=== PATIENT | male | born 1945 | race Caucasian/White ===

== ENCOUNTER 2023-08-14 19:52 | Inpatient (IN) | payer MEDICARE, OTHER ==
[~2023-08-14] VITALS: Ht 182.9 cm; Wt 66.2 kg
[2023-08-14 20:23] LABS: BASOPHILS % (AUTO) 0.4 % (0.0-2.0); EOSINOPHILS # (AUTO) 0.1 K/uL (0.0-0.7); EOSINOPHILS % (AUTO) 0.9 % (0.0-6.0); HEMATOCRIT 28 % (39-51); HEMOGLOBIN 8.6 g/dL (13.5-17.5); LYMPHOCYTES # (AUTO) 2.1 K/uL (0.8-4.8); LYMPHOCYTES % (AUTO) 21.4 % (20.0-44.0); MEAN CORPUSCULAR HEMOGLOBIN 28 PG (26.0-33.0); MEAN CORPUSCULAR HGB CONC 31 g/dl (31.0-36.0); MEAN CORPUSCULAR VOLUME 90 fL (80-96); MONOCYTES # (AUTO) 0.5 K/uL (0.1-1.30); MONOCYTES % (AUTO) 5.3 % (2.0-12.0); NEUTROPHILS # (AUTO) 7.2 K/uL (1.8-8.9); PLATELET COUNT (AUTO) 389 K/uL (150-450); RED BLOOD CELL COUNT(AUTO) 3.05 MIL/uL (4.5-6.0); WHITE BLOOD COUNT (AUTO) 9.9 K/uL (4.3-11.0)
[2023-08-14 20:36] LABS: INR 1.12 (0.91-1.10); PARTIAL THROMBOPLASTIN TIME 35.7 SEC (24.3-34.3); PROTHROMBIN TIME 11.8 SECS (9.2-11.1)
[2023-08-14] MEDS ORDERED: IOHEXOL-350 100 ML VIAL IV ONE (20:40)
[2023-08-14] MEDS ORDERED: IV NS 0.9% 250 ML IV ONE (20:40)
[2023-08-14] MEDS ORDERED: CT SWABBABLE VALVE TRANS SET 1 EA INFUS.SET MC ONE (20:40)
[2023-08-14 20:42] LABS: CALCIUM, SERUM 8.9 mg/dL (8.5-10.1); CARBON DIOXIDE 27 mmol/L (21-32); CHLORIDE 109 mmol/L (98-107); CREATININE 1.1 mg/dL (0.6-1.3); GLUCOSE 161 mg/dL (74-106); POTASSIUM 5.4 mmol/L (3.5-5.1); SODIUM SERUM 140 mmol/L (136-145); UREA NITROGEN, BLOOD 27 mg/dL (7-18)
[2023-08-14 20:49] LABS: LACTIC ACID 0.5 mmol/L (0.4-2.0)
[2023-08-14 20:55] LABS: ALANINE AMINOTRANSFERASE 33 U/L (12-78); ALKALINE PHOSPHATASE 121 U/L (46-116); ASPARTATE AMINOTRANSFERASE 25 U/L (15-37); BILIRUBIN,DIRECT 0.1 mg/dL (0.0-0.2); BILIRUBIN,TOTAL 0.2 mg/dL (0.2-1.0); TOTAL PROTEIN, SERUM 6.6 g/dL (6.4-8.2)
[2023-08-14 20:57] LABS: ALBUMIN 1.4 g/dL (3.4-5.0)
[2023-08-14 21:11] LABS: APPEARANCE,URINE CLEAR (CLEAR); BILIRUBIN,URINE NEGATIVE (NEGATIVE); BLOOD, URINE NEGATIVE Ery/uL (NEGATIVE); COLOR,URINE YELLOW (YELLOW); KETONES,URINE NEGATIVE (NEGATIVE); LEUKOCYTE ESTERASE ,URINE 1+ (NEGATIVE); NITRITE, URINE NEGATIVE (NEGATIVE); PROTEIN,URINE 2+ mg/dl (NEGATIVE); UGLUCOSE NEGATIVE (NEGATIVE); UROBILINOGEN,URINE 0.2 EU/dL (0.2)
[2023-08-14 21:42] LABS: ADD URINE CULTURE YES; BACTERIA,URINE 1+ /HPF (None Seen); RBC,URINE 0-2 /HPF (0-2); WBC,URINE TOO NUMEROUS TO COUN /HPF (0-3)
[2023-08-14 21:43] LABS: CALCIUM OXALATE CRYSTALS,UR Few /HPF (None Seen); SQUAMOUS EPITHELIAL CELL,UR Few /HPF (None Seen); YEAST,URINE Few /HPF (None Seen)
[2023-08-14] MEDS ORDERED: VANCOMYCIN 1 GM in IV D5W 250 ML IV ONE (22:00)
[2023-08-14] MEDS ORDERED: CEFEPIME 1 GM in IV D5W 50 ML IV ONE (22:00)
[2023-08-14] MEDS ORDERED: CEFEPIME 1 GM VIAL ONE (22:01)
[2023-08-14] MEDS ORDERED: VANCOMYCIN 1 GM /D5W 250 ML PB IV ONE (22:01)
[2023-08-14] MEDS ORDERED: Z GUARD REMEDY 4 OZ OINT TP PRN (23:00)
[2023-08-14] MEDS ORDERED: ZOLPIDEM TARTRATE 5 MG TABLET PO PRN (23:00)
[2023-08-14] MEDS ORDERED: ALBUTEROL FS 2.5 MG/0.5 ML VIAL.NEB NEB PRN ×2 (23:00)
[2023-08-14] MEDS ORDERED: MAGNESIUM HYDROXIDE 30 ML UDC PO PRN (23:00)
[2023-08-14] MEDS ORDERED: ONDANSETRON HCL/PF 4 MG/2 ML VIAL IVP PRN (23:00)
[2023-08-14] MEDS ORDERED: MAG HYDROX/AL HYDROX/SIMETH 30 ML UDC PO PRN (23:00)
[2023-08-14] MEDS ORDERED: ACETAMINOPHEN 325 MG TABLET PO PRN (23:00)
[2023-08-15] VITALS (20 sets, daily range): BP systolic 82–148; BP diastolic 56–124; TEMP 98.1–98.7; O2SAT 96–100
[2023-08-15 05:23] LABS: BASOPHILS % (AUTO) 0.5 % (0.0-2.0); EOSINOPHILS % (AUTO) 0.5 % (0.0-6.0); HEMATOCRIT 25 % (39-51); HEMOGLOBIN 7.9 g/dL (13.5-17.5); LYMPHOCYTES % (AUTO) 19.5 % (20.0-44.0); MEAN CORPUSCULAR HEMOGLOBIN 28 PG (26.0-33.0); MEAN CORPUSCULAR HGB CONC 31 g/dl (31.0-36.0); MEAN CORPUSCULAR VOLUME 89 fL (80-96); MONOCYTES # (AUTO) 0.6 K/uL (0.1-1.30); MONOCYTES % (AUTO) 6.2 % (2.0-12.0); NEUTROPHILS # (AUTO) 7.6 K/uL (1.8-8.9); NEUTROPHILS % (AUTO) 73.3 % (43.0-81.0); PLATELET COUNT (AUTO) 354 K/uL (150-450); RED BLOOD CELL COUNT(AUTO) 2.83 MIL/uL (4.5-6.0); WHITE BLOOD COUNT (AUTO) 10.3 K/uL (4.3-11.0)
[2023-08-15 05:36] LABS: CALCIUM, SERUM 8.7 mg/dL (8.5-10.1); MAGNESIUM 2.3 mg/dL (1.8-2.4); PHOSPHORUS 4.3 mg/dL (2.5-4.9); POTASSIUM 5.2 mmol/L (3.5-5.1)
[2023-08-15 06:14] LABS: ABG BASE EXCESS -2.4 mmol/L; ABG OXYGEN SATURATION 98.1 % (92.0-98.5); ABG PCO2 31.6 mmHg (35.0-45.0); ABG PH 7.444 (7.350-7.450); ABG PO2 121.1 mmHg (75.0-100.0); ABG TOTAL HEMOGLOBIN 8.7 G/dL (13.5-18.0); COHb 0.3 % (0.5-1.5); MetHb 0.3 % (0.0-1.5); O2Hb 97.5 % (94.0-97.0); PEEP,BG 5 cm H2O; SITE, ABG Left Radial; VENT MODE, BG AC 18 500 70% +5; VT, ABG 500 mL
[2023-08-15] MEDS ORDERED: IPRA4AER IH ×2 (08:20)
[2023-08-15] MEDS ORDERED: MELA3TAB41 GT (08:20)
[2023-08-15] MEDS ORDERED: CLON0.5T4 GT (08:20)
[2023-08-15] MEDS ORDERED: SENN-261 GT (08:20)
[2023-08-15] MEDS ORDERED: ACET-868 GT (08:20)
[2023-08-15] MEDS ORDERED: INSU100V39 SQ (08:20)
[2023-08-15] MEDS ORDERED: MIDO10TA GT (08:20)
[2023-08-15] MEDS ORDERED: SIME80TA15 GT (08:20)
[2023-08-15] MEDS ORDERED: SUCR1TAB GT (08:20)
[2023-08-15] MEDS ORDERED: TAMS-12 GT (08:20)
[2023-08-15] MEDS ORDERED: MAGN400T8 GT (08:20)
[2023-08-15] MEDS ORDERED: AMIO200T5 GT (08:20)
[2023-08-15] MEDS ORDERED: CHLO473M5 MM (08:20)
[2023-08-15] MEDS ORDERED: OLAN5TAB3 GT (08:20)
[2023-08-15] MEDS ORDERED: ENOX40DI SQ (08:20)
[2023-08-15] MEDS ORDERED: SODI10PO GT (08:20)
[2023-08-15] MEDS ORDERED: METO25TA6 GT (08:20)
[2023-08-15] MEDS ORDERED: SERT25TA GT (08:20)
[2023-08-15] MEDS ORDERED: HYDR-4303 GT (08:20)
[2023-08-15] MEDS ORDERED: OSMOLITE 1.5 GT (08:20)
[2023-08-15] MEDS ORDERED: NYST15CR2 TP (08:20)
[2023-08-15] MEDS ORDERED: INSU100I30 SQ (08:20)
[2023-08-15] MEDS ORDERED: FAMO20TA80 GT (08:20)
[2023-08-15] MEDS ORDERED: ATOR10TA GT (08:20)
[2023-08-15] MEDS ORDERED: ENOXAPARIN SODIUM 40 MG/0.4 ML DISP.SYRIN SQ SCH (09:00)
[2023-08-15] MEDS: CEFEPIME 2 GM in IV D5W 100 ML IV SCH ×2 (10:55→21:14)
[2023-08-15] MEDS: PANTOPRAZOLE 40 MG VIAL IV SCH (10:55)
[2023-08-15] MEDS: VANCOMYCIN HCL 0.75 GM in IV D5W 250 ML IV SCH ×2 (12:00→23:21)
[2023-08-15] MEDS: OSMOLITE 1.2 CAL 1,000 ML LIQUID GT PRN (16:30)
[2023-08-15] MEDS: LORAZEPAM INJ 2 MG/ML VIAL IV PRN (18:20)
[2023-08-15 18:48] LABS: APPEARANCE,URINE SLIGHTLY CLOUDY (CLEAR); BILIRUBIN,URINE NEGATIVE (NEGATIVE); BLOOD, URINE NEGATIVE Ery/uL (NEGATIVE); COLOR,URINE YELLOW (YELLOW); KETONES,URINE NEGATIVE (NEGATIVE); LEUKOCYTE ESTERASE ,URINE NEGATIVE (NEGATIVE); NITRITE, URINE NEGATIVE (NEGATIVE); PH,URINE 7.5 (5.0-8.0); PROTEIN,URINE 1+ mg/dl (NEGATIVE); UGLUCOSE NEGATIVE (NEGATIVE); UROBILINOGEN,URINE 0.2 EU/dL (0.2)
[2023-08-15 18:59] LABS: CREATININE, URINE 31.6 MG/DL (30.0-125.0); URINE TOTAL PROTEIN 67.2 mg/dL (0-11.9)
[2023-08-15 19:15] LABS: ADD URINE CULTURE YES; BACTERIA,URINE 1+ /HPF (None Seen); RBC,URINE 0-2 /HPF (0-2); SQUAMOUS EPITHELIAL CELL,UR 0-2 /HPF (None Seen)
[2023-08-15 19:16] LABS: YEAST,URINE Few /HPF (None Seen)
[2023-08-15 19:17] LABS: CALCIUM OXALATE CRYSTALS,UR Few /HPF (None Seen)
[2023-08-15] MEDS: Z GUARD REMEDY 4 OZ OINT TP SCH (20:30)
[2023-08-15 20:47] LABS: EOSINOPHIL,URINE None Seen
[2023-08-16] VITALS (30 sets, daily range): BP systolic 98–135; BP diastolic 62–96; TEMP 98–98.4; O2SAT 94–100
[2023-08-16 05:34] LABS: BASOPHILS # (AUTO) 0.1 K/uL (0.0-0.2); EOSINOPHILS # (AUTO) 0.1 K/uL (0.0-0.7); EOSINOPHILS % (AUTO) 1.1 % (0.0-6.0); HEMATOCRIT 24 % (39-51); HEMOGLOBIN 7.5 g/dL (13.5-17.5); LYMPHOCYTES # (AUTO) 2.4 K/uL (0.8-4.8); LYMPHOCYTES % (AUTO) 27.2 % (20.0-44.0); MEAN CORPUSCULAR HEMOGLOBIN 28 PG (26.0-33.0); MEAN CORPUSCULAR HGB CONC 32 g/dl (31.0-36.0); MEAN CORPUSCULAR VOLUME 88 fL (80-96); MONOCYTES # (AUTO) 0.6 K/uL (0.1-1.30); MONOCYTES % (AUTO) 6.7 % (2.0-12.0); NEUTROPHILS # (AUTO) 5.6 K/uL (1.8-8.9); PLATELET COUNT (AUTO) 334 K/uL (150-450); RED BLOOD CELL COUNT(AUTO) 2.68 MIL/uL (4.5-6.0); RED CELL DISTRIBUTION WIDTH 17.9 % (11.5-15.0); WHITE BLOOD COUNT (AUTO) 8.8 K/uL (4.3-11.0)
[2023-08-16 05:50] LABS: BILIRUBIN,TOTAL 0.4 mg/dL (0.2-1.0); CALCIUM, SERUM 8.2 mg/dL (8.5-10.1); CREATININE 1.1 mg/dL (0.6-1.3); MAGNESIUM 2.3 mg/dL (1.8-2.4); PHOSPHORUS 3.7 mg/dL (2.5-4.9); POTASSIUM 4.5 mmol/L (3.5-5.1); TOTAL PROTEIN, SERUM 5.7 g/dL (6.4-8.2)
[2023-08-16 06:04] LABS: ALBUMIN 1.2 g/dL (3.4-5.0)
[2023-08-16] MEDS: PROSOURCE / PROSTAT (PYXIS) 30 ML UDC GT SCH (09:16)
[2023-08-16] MEDS: PANTOPRAZOLE 40 MG VIAL IV SCH (09:17)
[2023-08-16] MEDS: Z GUARD REMEDY 4 OZ OINT TP SCH ×2 (09:18→20:40)
[2023-08-16] MEDS: CEFEPIME 2 GM in IV D5W 100 ML IV SCH ×2 (09:19→21:09)
[2023-08-16] MEDS: LORAZEPAM INJ 2 MG/ML VIAL IV PRN ×2 (11:02→20:38)
[2023-08-16] MEDS: OSMOLITE 1.2 CAL 1,000 ML LIQUID GT PRN (17:59)
[2023-08-16] MEDS: VANCOMYCIN 500 MG in IV D5W 100ml IV SCH (23:24)
[2023-08-17] VITALS (25 sets, daily range): BP systolic 97–157; BP diastolic 63–146; TEMP 98–98.2; O2SAT 92–100
[2023-08-17 05:44] LABS: CALCIUM, SERUM 8.2 mg/dL (8.5-10.1); CARBON DIOXIDE 23 mmol/L (21-32); CHLORIDE 108 mmol/L (98-107); GLUCOSE 112 mg/dL (74-106); POTASSIUM 5.1 mmol/L (3.5-5.1); SODIUM SERUM 137 mmol/L (136-145); UREA NITROGEN, BLOOD 24 mg/dL (7-18)
[2023-08-17] MEDS: Z GUARD REMEDY 4 OZ OINT TP SCH ×2 (09:54→21:08)
[2023-08-17] MEDS: PROSOURCE / PROSTAT (PYXIS) 30 ML UDC GT SCH (10:04)
[2023-08-17] MEDS: CEFEPIME 2 GM in IV D5W 100 ML IV SCH ×2 (10:05→21:08)
[2023-08-17] MEDS: VANCOMYCIN 500 MG in IV D5W 100ml IV SCH (13:40)
[2023-08-17] MEDS: OSMOLITE 1.2 CAL 1,000 ML LIQUID GT PRN (18:05)
[2023-08-18] VITALS (17 sets, daily range): BP systolic 90–148; BP diastolic 66–101; TEMP 97.3–98.3; O2SAT 93–100
[2023-08-18] MEDS: VANCOMYCIN 500 MG in IV D5W 100ml IV SCH (00:13)
[2023-08-18 05:36] LABS: BASOPHILS # (AUTO) 0.1 K/uL (0.0-0.2); BASOPHILS % (AUTO) 0.5 % (0.0-2.0); EOSINOPHILS # (AUTO) 0.2 K/uL (0.0-0.7); EOSINOPHILS % (AUTO) 1.7 % (0.0-6.0); HEMATOCRIT 26 % (39-51); HEMOGLOBIN 8.4 g/dL (13.5-17.5); LYMPHOCYTES # (AUTO) 2.9 K/uL (0.8-4.8); LYMPHOCYTES % (AUTO) 26.5 % (20.0-44.0); MEAN CORPUSCULAR HEMOGLOBIN 28 PG (26.0-33.0); MEAN CORPUSCULAR HGB CONC 32 g/dl (31.0-36.0); MEAN CORPUSCULAR VOLUME 88 fL (80-96); MONOCYTES # (AUTO) 0.6 K/uL (0.1-1.30); MONOCYTES % (AUTO) 5.8 % (2.0-12.0); NEUTROPHILS # (AUTO) 7.2 K/uL (1.8-8.9); NEUTROPHILS % (AUTO) 65.5 % (43.0-81.0); PLATELET COUNT (AUTO) 338 K/uL (150-450); RED BLOOD CELL COUNT(AUTO) 2.99 MIL/uL (4.5-6.0); RED CELL DISTRIBUTION WIDTH 18.7 % (11.5-15.0)
[2023-08-18 06:00] LABS: CALCIUM, SERUM 8.3 mg/dL (8.5-10.1); CARBON DIOXIDE 26 mmol/L (21-32); CHLORIDE 106 mmol/L (98-107); GLUCOSE 98 mg/dL (74-106); MAGNESIUM 2.1 mg/dL (1.8-2.4); PHOSPHORUS 3.3 mg/dL (2.5-4.9); SODIUM SERUM 136 mmol/L (136-145); UREA NITROGEN, BLOOD 24 mg/dL (7-18)
[2023-08-18] MEDS: LORAZEPAM INJ 2 MG/ML VIAL IV PRN (08:36)
[2023-08-18] MEDS: Z GUARD REMEDY 4 OZ OINT TP SCH ×2 (08:43→20:53)
[2023-08-18] MEDS: PROSOURCE / PROSTAT (PYXIS) 30 ML UDC GT SCH (08:43)
[2023-08-18] MEDS: PANTOPRAZOLE 40 MG/PACK PACK GT SCH (08:43)
[2023-08-18] MEDS: FLUCONAZOLE IN NS 100 MG in PREMIX 1 EA IV SCH ×2 (09:22)
[2023-08-18] MEDS: CEFEPIME 2 GM in IV D5W 100 ML IV SCH ×2 (09:40→21:35)
[2023-08-18 11:08] LABS: *SPE A/G RATIO 0.5 (0.7-1.7); *SPE ALBUMIN 1.7 g/dL (2.9-4.4); *SPE ALPHA-1-GLOBULIN 0.4 g/dL (0.0-0.4); *SPE ALPHA-2-GLOBULIN 0.9 g/dL (0.4-1.0); *SPE BETA GLOBULIN 0.9 g/dL (0.7-1.3); *SPE GLOBULIN, TOTAL 3.5 g/dL (2.2-3.9); *SPE M-SPIKE 0.4 g/dL (Not Observed); *SPE PROTEIN TOTAL 5.2 g/dL (6.0-8.5); *SPEGAMMA GLOBULIN 1.4 g/dL (0.4-1.8)
[2023-08-18 16:10] LABS: PTH, INTACT 34 pg/mL (15-65)
[2023-08-19] MEDS ORDERED: VANCOMYCIN 1 GM in IV D5W 250ml IV SCH ×2
[2023-08-19] MEDS: VANCOMYCIN HCL 0.75 GM in IV D5W 250 ML IV SCH ×2
[2023-08-19 07:05] LABS: BASOPHILS # (AUTO) 0.1 K/uL (0.0-0.2); BASOPHILS % (AUTO) 0.7 % (0.0-2.0); EOSINOPHILS # (AUTO) 0.2 K/uL (0.0-0.7); EOSINOPHILS % (AUTO) 1.8 % (0.0-6.0); HEMATOCRIT 31 % (39-51); HEMOGLOBIN 9.5 g/dL (13.5-17.5); LYMPHOCYTES # (AUTO) 2.6 K/uL (0.8-4.8); LYMPHOCYTES % (AUTO) 21.4 % (20.0-44.0); MEAN CORPUSCULAR HEMOGLOBIN 27 PG (26.0-33.0); MEAN CORPUSCULAR HGB CONC 31 g/dl (31.0-36.0); MEAN CORPUSCULAR VOLUME 88 fL (80-96); MONOCYTES # (AUTO) 0.8 K/uL (0.1-1.30); MONOCYTES % (AUTO) 6.6 % (2.0-12.0); NEUTROPHILS # (AUTO) 8.5 K/uL (1.8-8.9); NEUTROPHILS % (AUTO) 69.5 % (43.0-81.0); PLATELET COUNT (AUTO) 341 K/uL (150-450); RED CELL DISTRIBUTION WIDTH 18.2 % (11.5-15.0); WHITE BLOOD COUNT (AUTO) 12.2 K/uL (4.3-11.0)
[2023-08-19 07:30] LABS: CALCIUM, SERUM 8.9 mg/dL (8.5-10.1); CREATININE 1.1 mg/dL (0.6-1.3); MAGNESIUM 2.1 mg/dL (1.8-2.4); PHOSPHORUS 5.8 mg/dL (2.5-4.9); POTASSIUM 5.4 mmol/L (3.5-5.1)
[2023-08-19 08:00] VITALS: BP 123/63; TEMP 98.6; O2SAT 100
[2023-08-19] MEDS: PANTOPRAZOLE 40 MG/PACK PACK GT SCH (08:37)
[2023-08-19] MEDS: Z GUARD REMEDY 4 OZ OINT TP SCH ×2 (08:37→21:36)
[2023-08-19] MEDS: PROSOURCE / PROSTAT (PYXIS) 30 ML UDC GT SCH (08:37)
[2023-08-19] MEDS: FLUCONAZOLE IN NS 100 MG in PREMIX 1 EA IV SCH ×2 (08:37)
[2023-08-19 08:38] LABS: ABG BASE EXCESS -1.3 mmol/L; ABG OXYGEN SATURATION 95.7 % (92.0-98.5); ABG PCO2 30.1 mmHg (35.0-45.0); ABG PH 7.475 (7.350-7.450); ABG PO2 79.9 mmHg (75.0-100.0); ABG TOTAL HEMOGLOBIN 9.5 G/dL (13.5-18.0); AaDO2 170.7 mmHg; COHb 0.6 % (0.5-1.5); MetHb 0.3 % (0.0-1.5); O2Hb 94.8 % (94.0-97.0); SITE, ABG Right Radial
[2023-08-19] MEDS: CEFEPIME 2 GM in IV D5W 100 ML IV SCH ×2 (10:07→21:34)
[2023-08-19] MEDS: LORAZEPAM INJ 2 MG/ML VIAL IV PRN (11:58)
[2023-08-19 12:00] VITALS: BP 135/95; TEMP 99.7; O2SAT 100
[2023-08-19] MEDS ORDERED: SODIUM POLYSTYRENE SULFONATE 15 G/60 ML BOTTLE PO ONE (14:30)
[2023-08-19] MEDS ORDERED: SENNOSIDES 8.6 MG TABLET GT PRN (14:30)
[2023-08-19] MEDS ORDERED: SIMETHICONE 80 MG TAB.CHEW GT PRN (14:30)
[2023-08-19] MEDS ORDERED: AMIODARONE HCL 200 MG TABLET GT SCH ×2 (14:30→14:50)
[2023-08-19 15:37] LABS: CALCIUM, SERUM 8.7 mg/dL (8.5-10.1); CARBON DIOXIDE 23 mmol/L (21-32); CHLORIDE 105 mmol/L (98-107); CREATININE 1.2 mg/dL (0.6-1.3); GLUCOSE 127 mg/dL (74-106); POTASSIUM 5.7 mmol/L (3.5-5.1); SODIUM SERUM 137 mmol/L (136-145); UREA NITROGEN, BLOOD 28 mg/dL (7-18)
[2023-08-19] MEDS: NYSTATIN/TRIAMCIN CREAM 15 GM TUBE TP SCH ×2 (15:52→21:36)
[2023-08-19 16:00] VITALS: BP 108/64; TEMP 100; O2SAT 98
[2023-08-19] MEDS: NEPRO 1,000 ML BOTTLE GT PRN (16:16)
[2023-08-19] MEDS: SUCRALFATE 1 G TABLET PO SCH ×2 (16:26→21:35)
[2023-08-19] MEDS: OLANZAPINE 5 MG TABLET GT SCH (16:26)
[2023-08-19] MEDS ORDERED: MAG HYDROX/AL HYDROX/SIMETH 30 ML UDC GT PRN (16:29)
[2023-08-19] MEDS ORDERED: MAGNESIUM HYDROXIDE 30 ML UDC GT PRN (16:29)
[2023-08-19] MEDS ORDERED: ACETAMINOPHEN 650 MG/20.3 ML UDC GT PRN (16:30)
[2023-08-19] MEDS: METOPROLOL TARTRATE 25 MG TABLET GT SCH (17:03)
[2023-08-19] MEDS ORDERED: METOPROLOL TARTRATE 25 MG TABLET GT SCH (18:00)
[2023-08-19 20:00] VITALS: BP 111/74; TEMP 98.2; O2SAT 100
[2023-08-19] MEDS: TAMSULOSIN 0.4 MG CAP.SR.24H GT SCH (21:35)
[2023-08-19] MEDS: SERTRALINE HCL 25 MG TABLET GT SCH (21:35)
[2023-08-19] MEDS: ATORVASTATIN 10 MG TABLET GT SCH (21:35)
[2023-08-19] MEDS: INSULIN GLARGINE, 100 UNIT/ML CARTRIDGE SQ SCH (21:37)
[2023-08-20] VITALS: BP 132/99; TEMP 97.9; O2SAT 99
[2023-08-20] MEDS: METOPROLOL TARTRATE 25 MG TABLET GT SCH ×4 (00:41→17:02)
[2023-08-20] MEDS: VANCOMYCIN HCL 0.75 GM in IV D5W 250 ML IV SCH (00:41)
[2023-08-20 04:00] VITALS: BP 138/78; TEMP 99; O2SAT 100
[2023-08-20] MEDS: LORAZEPAM INJ 2 MG/ML VIAL IV PRN (05:48)
[2023-08-20 05:51] LABS: BASOPHILS # (AUTO) 0.1 K/uL (0.0-0.2); BASOPHILS % (AUTO) 0.6 % (0.0-2.0); EOSINOPHILS # (AUTO) 0.2 K/uL (0.0-0.7); EOSINOPHILS % (AUTO) 1.3 % (0.0-6.0); HEMATOCRIT 29 % (39-51); HEMOGLOBIN 9.2 g/dL (13.5-17.5); LYMPHOCYTES # (AUTO) 1.9 K/uL (0.8-4.8); LYMPHOCYTES % (AUTO) 15.9 % (20.0-44.0); MEAN CORPUSCULAR HEMOGLOBIN 28 PG (26.0-33.0); MEAN CORPUSCULAR HGB CONC 31 g/dl (31.0-36.0); MEAN CORPUSCULAR VOLUME 88 fL (80-96); MONOCYTES # (AUTO) 0.9 K/uL (0.1-1.30); MONOCYTES % (AUTO) 7.7 % (2.0-12.0); NEUTROPHILS # (AUTO) 8.9 K/uL (1.8-8.9); NEUTROPHILS % (AUTO) 74.5 % (43.0-81.0); PLATELET COUNT (AUTO) 332 K/uL (150-450); RED BLOOD CELL COUNT(AUTO) 3.34 MIL/uL (4.5-6.0)
[2023-08-20 06:13] LABS: BILIRUBIN,TOTAL 0.3 mg/dL (0.2-1.0); CALCIUM, SERUM 8.5 mg/dL (8.5-10.1); MAGNESIUM 1.9 mg/dL (1.8-2.4); PHOSPHORUS 3.5 mg/dL (2.5-4.9); TOTAL PROTEIN, SERUM 6.6 g/dL (6.4-8.2)
[2023-08-20 06:33] LABS: ALBUMIN 1.5 g/dL (3.4-5.0)
[2023-08-20 07:30] VITALS: BP 108/80; TEMP 98.1; O2SAT 99
[2023-08-20] MEDS: SUCRALFATE 1 G TABLET PO SCH ×4 (08:52→20:10)
[2023-08-20] MEDS: OLANZAPINE 5 MG TABLET GT SCH ×2 (08:52→17:01)
[2023-08-20] MEDS: PANTOPRAZOLE 40 MG/PACK PACK GT SCH (08:52)
[2023-08-20] MEDS: PROSOURCE / PROSTAT (PYXIS) 30 ML UDC GT SCH (08:54)
[2023-08-20] MEDS: FLUCONAZOLE IN NS 100 MG in PREMIX 1 EA IV SCH ×2 (08:56)
[2023-08-20] MEDS ORDERED: ENOXAPARIN SODIUM 40 MG/0.4 ML DISP.SYRIN SQ SCH (09:00)
[2023-08-20] MEDS ORDERED: SUCRALFATE 1 G TABLET GT SCH (09:00)
[2023-08-20] MEDS: NYSTATIN/TRIAMCIN CREAM 15 GM TUBE TP SCH ×2 (09:13→20:11)
[2023-08-20] MEDS: Z GUARD REMEDY 4 OZ OINT TP SCH ×2 (09:13→20:11)
[2023-08-20] MEDS: CEFEPIME 2 GM in IV D5W 100 ML IV SCH ×2 (10:27→21:48)
[2023-08-20 12:00] VITALS: BP 129/90; TEMP 97.9; O2SAT 96
[2023-08-20 16:00] VITALS: BP 113/71; TEMP 97.9; O2SAT 97
[2023-08-20] MEDS: NEPRO 1,000 ML BOTTLE GT PRN (17:01)
[2023-08-20] MEDS: SERTRALINE HCL 25 MG TABLET GT SCH (21:47)
[2023-08-20] MEDS: TAMSULOSIN 0.4 MG CAP.SR.24H GT SCH (21:47)
[2023-08-20] MEDS: ATORVASTATIN 10 MG TABLET GT SCH (21:47)
[2023-08-20] MEDS: INSULIN GLARGINE, 100 UNIT/ML CARTRIDGE SQ SCH (22:29)
[2023-08-21] MEDS: VANCOMYCIN HCL 0.75 GM in IV D5W 250 ML IV SCH (00:12)
[2023-08-21] MEDS: METOPROLOL TARTRATE 25 MG TABLET GT SCH ×4 (00:13→18:00)
[2023-08-21 07:28] LABS: BASOPHILS # (AUTO) 0.1 K/uL (0.0-0.2); BASOPHILS % (AUTO) 0.5 % (0.0-2.0); EOSINOPHILS # (AUTO) 0.2 K/uL (0.0-0.7); EOSINOPHILS % (AUTO) 1.5 % (0.0-6.0); HEMATOCRIT 30 % (39-51); HEMOGLOBIN 9.3 g/dL (13.5-17.5); LYMPHOCYTES % (AUTO) 26.2 % (20.0-44.0); MEAN CORPUSCULAR HEMOGLOBIN 28 PG (26.0-33.0); MEAN CORPUSCULAR HGB CONC 31 g/dl (31.0-36.0); MEAN CORPUSCULAR VOLUME 88 fL (80-96); MONOCYTES # (AUTO) 1.2 K/uL (0.1-1.30); MONOCYTES % (AUTO) 8.1 % (2.0-12.0); NEUTROPHILS # (AUTO) 9.7 K/uL (1.8-8.9); NEUTROPHILS % (AUTO) 63.7 % (43.0-81.0); PLATELET COUNT (AUTO) 308 K/uL (150-450); RED BLOOD CELL COUNT(AUTO) 3.36 MIL/uL (4.5-6.0); RED CELL DISTRIBUTION WIDTH 18.8 % (11.5-15.0); WHITE BLOOD COUNT (AUTO) 15.2 K/uL (4.3-11.0)
[2023-08-21 07:54] LABS: ALBUMIN 1.5 g/dL (3.4-5.0); BILIRUBIN,TOTAL 0.2 mg/dL (0.2-1.0); CALCIUM, SERUM 8.9 mg/dL (8.5-10.1); CREATININE 1.1 mg/dL (0.6-1.3); MAGNESIUM 2.2 mg/dL (1.8-2.4); PHOSPHORUS 3.5 mg/dL (2.5-4.9); POTASSIUM 4.5 mmol/L (3.5-5.1); TOTAL PROTEIN, SERUM 6.8 g/dL (6.4-8.2)
[2023-08-21 08:00] VITALS: BP 91/61; TEMP 97.4; O2SAT 100
[2023-08-21] MEDS: PANTOPRAZOLE 40 MG/PACK PACK GT SCH (08:42)
[2023-08-21] MEDS: PROSOURCE / PROSTAT (PYXIS) 30 ML UDC GT SCH (08:42)
[2023-08-21] MEDS: OLANZAPINE 5 MG TABLET GT SCH ×2 (08:42→17:07)
[2023-08-21] MEDS: SUCRALFATE 1 G TABLET PO SCH ×4 (08:42→21:39)
[2023-08-21] MEDS: FLUCONAZOLE IN NS 100 MG in PREMIX 1 EA IV SCH ×2 (08:45)
[2023-08-21] MEDS: NYSTATIN/TRIAMCIN CREAM 15 GM TUBE TP SCH ×2 (09:04→21:38)
[2023-08-21] MEDS: Z GUARD REMEDY 4 OZ OINT TP SCH ×2 (09:29→21:38)
[2023-08-21] MEDS: CEFEPIME 2 GM in IV D5W 100 ML IV SCH ×2 (10:08→21:39)
[2023-08-21 11:40] VITALS: BP 112/71; TEMP 97.6; O2SAT 97
[2023-08-21] MEDS: NEPRO 1,000 ML BOTTLE GT PRN (14:27)
[2023-08-21 16:00] VITALS: BP 101/73; TEMP 97.3; O2SAT 99
[2023-08-21 19:00] VITALS: BP 120/74; TEMP 97.9; O2SAT 99
[2023-08-21 20:00] VITALS: BP 120/74; TEMP 97.9; O2SAT 99
[2023-08-21] MEDS: TAMSULOSIN 0.4 MG CAP.SR.24H GT SCH (21:38)
[2023-08-21] MEDS: SERTRALINE HCL 25 MG TABLET GT SCH (21:39)
[2023-08-21] MEDS: ATORVASTATIN 10 MG TABLET GT SCH (21:39)
[2023-08-21] MEDS: INSULIN GLARGINE, 100 UNIT/ML CARTRIDGE SQ SCH (22:00)
[2023-08-22] VITALS: BP 94/66; TEMP 98; O2SAT 98
[2023-08-22] MEDS: VANCOMYCIN HCL 0.75 GM in IV D5W 250 ML IV SCH ×2 (00:07→23:42)
[2023-08-22 04:00] VITALS: BP 95/62; TEMP 97.9; O2SAT 96
[2023-08-22 05:51] LABS: BASOPHILS # (AUTO) 0.1 K/uL (0.0-0.2); BASOPHILS % (AUTO) 0.7 % (0.0-2.0); EOSINOPHILS # (AUTO) 0.3 K/uL (0.0-0.7); EOSINOPHILS % (AUTO) 2.8 % (0.0-6.0); HEMATOCRIT 28 % (39-51); HEMOGLOBIN 8.6 g/dL (13.5-17.5); LYMPHOCYTES # (AUTO) 2.7 K/uL (0.8-4.8); LYMPHOCYTES % (AUTO) 28.9 % (20.0-44.0); MEAN CORPUSCULAR HEMOGLOBIN 28 PG (26.0-33.0); MEAN CORPUSCULAR HGB CONC 31 g/dl (31.0-36.0); MEAN CORPUSCULAR VOLUME 88 fL (80-96); MONOCYTES # (AUTO) 0.7 K/uL (0.1-1.30); MONOCYTES % (AUTO) 7.5 % (2.0-12.0); NEUTROPHILS # (AUTO) 5.7 K/uL (1.8-8.9); NEUTROPHILS % (AUTO) 60.1 % (43.0-81.0); PLATELET COUNT (AUTO) 263 K/uL (150-450); RED BLOOD CELL COUNT(AUTO) 3.13 MIL/uL (4.5-6.0); RED CELL DISTRIBUTION WIDTH 18.7 % (11.5-15.0); WHITE BLOOD COUNT (AUTO) 9.4 K/uL (4.3-11.0)
[2023-08-22] MEDS: METOPROLOL TARTRATE 25 MG TABLET GT SCH ×4 (06:00→18:00)
[2023-08-22 06:30] LABS: BILIRUBIN,TOTAL 0.2 mg/dL (0.2-1.0); CALCIUM, SERUM 9.1 mg/dL (8.5-10.1); MAGNESIUM 2.1 mg/dL (1.8-2.4); TOTAL PROTEIN, SERUM 6.2 g/dL (6.4-8.2)
[2023-08-22 06:49] LABS: ALBUMIN 1.3 g/dL (3.4-5.0)
[2023-08-22 08:00] VITALS: BP 108/76; TEMP 97.3; O2SAT 99
[2023-08-22] MEDS: PROSOURCE / PROSTAT (PYXIS) 30 ML UDC GT SCH ×3 (08:36→17:39)
[2023-08-22] MEDS: OLANZAPINE 5 MG TABLET GT SCH ×2 (09:07→17:39)
[2023-08-22] MEDS: PANTOPRAZOLE 40 MG/PACK PACK GT SCH (09:08)
[2023-08-22] MEDS: SUCRALFATE 1 G TABLET PO SCH ×4 (09:08→21:30)
[2023-08-22] MEDS: FLUCONAZOLE IN NS 100 MG in PREMIX 1 EA IV SCH ×2 (09:45)
[2023-08-22] MEDS: Z GUARD REMEDY 4 OZ OINT TP SCH ×2 (09:46→21:31)
[2023-08-22] MEDS: NYSTATIN/TRIAMCIN CREAM 15 GM TUBE TP SCH ×2 (09:46→21:30)
[2023-08-22] MEDS: CEFEPIME 2 GM in IV D5W 100 ML IV SCH ×2 (10:22→21:31)
[2023-08-22] MEDS: NEPRO 1,000 ML BOTTLE GT PRN (10:39)
[2023-08-22 16:00] VITALS: BP 104/64; TEMP 97.3; O2SAT 99
[2023-08-22 20:00] VITALS: BP_SYST 107; BP_SYST 109; BP_DIAS 71; BP_DIAS 91; TEMP 98.2; O2SAT 100
[2023-08-22] MEDS: ATORVASTATIN 10 MG TABLET GT SCH (21:31)
[2023-08-22] MEDS: SERTRALINE HCL 25 MG TABLET GT SCH (21:31)
[2023-08-22] MEDS: TAMSULOSIN 0.4 MG CAP.SR.24H GT SCH (21:31)
[2023-08-22] MEDS: INSULIN GLARGINE, 100 UNIT/ML CARTRIDGE SQ SCH (21:47)
[2023-08-23] VITALS: BP_SYST 106; BP_SYST 114; BP_DIAS 79; BP_DIAS 80; TEMP 97.8; TEMP 98.4; O2SAT 100
[2023-08-23 04:00] VITALS: BP 135/86; TEMP 97.7; O2SAT 100
[2023-08-23] MEDS: METOPROLOL TARTRATE 25 MG TABLET GT SCH ×4 (06:22→17:48)
[2023-08-23 07:33] LABS: BASOPHILS # (AUTO) 0.1 K/uL (0.0-0.2); BASOPHILS % (AUTO) 0.9 % (0.0-2.0); EOSINOPHILS # (AUTO) 0.3 K/uL (0.0-0.7); EOSINOPHILS % (AUTO) 3.1 % (0.0-6.0); HEMATOCRIT 27 % (39-51); HEMOGLOBIN 8.4 g/dL (13.5-17.5); LYMPHOCYTES # (AUTO) 2.3 K/uL (0.8-4.8); LYMPHOCYTES % (AUTO) 25.3 % (20.0-44.0); MEAN CORPUSCULAR HEMOGLOBIN 28 PG (26.0-33.0); MEAN CORPUSCULAR HGB CONC 31 g/dl (31.0-36.0); MEAN CORPUSCULAR VOLUME 90 fL (80-96); MONOCYTES # (AUTO) 0.7 K/uL (0.1-1.30); MONOCYTES % (AUTO) 7.6 % (2.0-12.0); NEUTROPHILS # (AUTO) 5.8 K/uL (1.8-8.9); NEUTROPHILS % (AUTO) 63.1 % (43.0-81.0); PLATELET COUNT (AUTO) 262 K/uL (150-450); RED BLOOD CELL COUNT(AUTO) 3.04 MIL/uL (4.5-6.0); RED CELL DISTRIBUTION WIDTH 18.9 % (11.5-15.0); WHITE BLOOD COUNT (AUTO) 9.3 K/uL (4.3-11.0)
[2023-08-23 07:53] LABS: BILIRUBIN,TOTAL 0.2 mg/dL (0.2-1.0); MAGNESIUM 2.1 mg/dL (1.8-2.4); PHOSPHORUS 2.8 mg/dL (2.5-4.9); POTASSIUM 4.1 mmol/L (3.5-5.1); TOTAL PROTEIN, SERUM 6.3 g/dL (6.4-8.2)
[2023-08-23 08:00] VITALS: BP 101/66; TEMP 98.1; O2SAT 98
[2023-08-23 08:05] LABS: ALBUMIN 1.4 g/dL (3.4-5.0)
[2023-08-23] MEDS: NYSTATIN/TRIAMCIN CREAM 15 GM TUBE TP SCH ×2 (09:46→21:22)
[2023-08-23] MEDS: SUCRALFATE 1 G TABLET PO SCH ×4 (09:46→21:29)
[2023-08-23] MEDS: PANTOPRAZOLE 40 MG/PACK PACK GT SCH (09:46)
[2023-08-23] MEDS: OLANZAPINE 5 MG TABLET GT SCH ×2 (09:46→17:47)
[2023-08-23] MEDS: FLUCONAZOLE (100 MG) 100 MG TABLET GT SCH (09:46)
[2023-08-23] MEDS: CEFEPIME 2 GM in IV D5W 100 ML IV SCH ×2 (09:50→21:30)
[2023-08-23] MEDS: Z GUARD REMEDY 4 OZ OINT TP SCH ×2 (09:50→21:22)
[2023-08-23] MEDS: PROSOURCE / PROSTAT (PYXIS) 30 ML UDC GT SCH ×2 (09:51→17:47)
[2023-08-23] MEDS: NEPRO 1,000 ML BOTTLE GT PRN (10:50)
[2023-08-23 16:00] VITALS: BP 110/78; TEMP 98.2; O2SAT 94
[2023-08-23 20:00] VITALS: BP 97/71; TEMP 97.8; O2SAT 97
[2023-08-23] MEDS: SERTRALINE HCL 25 MG TABLET GT SCH (21:30)
[2023-08-23] MEDS: TAMSULOSIN 0.4 MG CAP.SR.24H GT SCH (21:30)
[2023-08-23] MEDS: ATORVASTATIN 10 MG TABLET GT SCH (21:30)
[2023-08-23] MEDS: INSULIN GLARGINE, 100 UNIT/ML CARTRIDGE SQ SCH (22:00)
[2023-08-23] MEDS: VANCOMYCIN HCL 0.75 GM in IV D5W 250 ML IV SCH (23:01)
[2023-08-24] VITALS (7 sets, daily range): BP systolic 95–121; BP diastolic 55–87; TEMP 97.6–98.6; O2SAT 96–100
[2023-08-24] MEDS: METOPROLOL TARTRATE 25 MG TABLET GT SCH ×4 (00:44→18:13)
[2023-08-24] MEDS: NEPRO 1,000 ML BOTTLE GT PRN (04:57)
[2023-08-24 07:18] LABS: BASOPHILS # (AUTO) 0.1 K/uL (0.0-0.2); BASOPHILS % (AUTO) 0.9 % (0.0-2.0); EOSINOPHILS # (AUTO) 0.2 K/uL (0.0-0.7); EOSINOPHILS % (AUTO) 2.4 % (0.0-6.0); HEMATOCRIT 26 % (39-51); HEMOGLOBIN 8.4 g/dL (13.5-17.5); LYMPHOCYTES # (AUTO) 2.8 K/uL (0.8-4.8); LYMPHOCYTES % (AUTO) 29.2 % (20.0-44.0); MEAN CORPUSCULAR HEMOGLOBIN 28 PG (26.0-33.0); MEAN CORPUSCULAR HGB CONC 32 g/dl (31.0-36.0); MEAN CORPUSCULAR VOLUME 87 fL (80-96); MONOCYTES # (AUTO) 0.8 K/uL (0.1-1.30); MONOCYTES % (AUTO) 7.8 % (2.0-12.0); NEUTROPHILS # (AUTO) 5.8 K/uL (1.8-8.9); NEUTROPHILS % (AUTO) 59.7 % (43.0-81.0); PLATELET COUNT (AUTO) 274 K/uL (150-450); RED BLOOD CELL COUNT(AUTO) 3.02 MIL/uL (4.5-6.0); RED CELL DISTRIBUTION WIDTH 18.1 % (11.5-15.0); WHITE BLOOD COUNT (AUTO) 9.7 K/uL (4.3-11.0)
[2023-08-24 07:37] LABS: BILIRUBIN,TOTAL 0.1 mg/dL (0.2-1.0); CALCIUM, SERUM 9.1 mg/dL (8.5-10.1); CREATININE 0.9 mg/dL (0.6-1.3); PHOSPHORUS 2.4 mg/dL (2.5-4.9); POTASSIUM 4.7 mmol/L (3.5-5.1); TOTAL PROTEIN, SERUM 6.5 g/dL (6.4-8.2)
[2023-08-24 07:46] LABS: ALBUMIN 1.4 g/dL (3.4-5.0)
[2023-08-24] MEDS: FLUCONAZOLE (100 MG) 100 MG TABLET GT SCH (09:25)
[2023-08-24] MEDS: OLANZAPINE 5 MG TABLET GT SCH ×2 (09:25→18:11)
[2023-08-24] MEDS: SUCRALFATE 1 G TABLET PO SCH ×4 (09:25→21:01)
[2023-08-24] MEDS: PANTOPRAZOLE 40 MG/PACK PACK GT SCH (09:25)
[2023-08-24] MEDS: PROSOURCE / PROSTAT (PYXIS) 30 ML UDC GT SCH ×2 (09:26→18:13)
[2023-08-24] MEDS: Z GUARD REMEDY 4 OZ OINT TP SCH ×2 (09:27→21:03)
[2023-08-24] MEDS: NYSTATIN/TRIAMCIN CREAM 15 GM TUBE TP SCH ×2 (09:27→21:03)
[2023-08-24] MEDS: CEFEPIME 2 GM in IV D5W 100 ML IV SCH ×2 (09:35→21:49)
[2023-08-24] MEDS ORDERED: NEUTRA PHOS 1 POWD.PACKET GT ONE (17:00)
[2023-08-24] MEDS: TAMSULOSIN 0.4 MG CAP.SR.24H GT SCH (21:43)
[2023-08-24] MEDS: ATORVASTATIN 10 MG TABLET GT SCH (21:44)
[2023-08-24] MEDS: SERTRALINE HCL 25 MG TABLET GT SCH (21:50)
[2023-08-24] MEDS: INSULIN GLARGINE, 100 UNIT/ML CARTRIDGE SQ SCH (22:00)
[2023-08-25] VITALS: BP 115/72; TEMP 97.7; O2SAT 97; O2SAT 98
[2023-08-25] MEDS: METOPROLOL TARTRATE 25 MG TABLET GT SCH ×5 (00:48→23:01)
[2023-08-25] MEDS: NEPRO 1,000 ML BOTTLE GT PRN ×2 (00:53→23:13)
[2023-08-25 04:00] VITALS: BP 108/62; TEMP 97.7; O2SAT 98
[2023-08-25 06:19] LABS: BASOPHILS # (AUTO) 0.1 K/uL (0.0-0.2); BASOPHILS % (AUTO) 1.1 % (0.0-2.0); EOSINOPHILS # (AUTO) 0.3 K/uL (0.0-0.7); EOSINOPHILS % (AUTO) 3.5 % (0.0-6.0); HEMATOCRIT 27 % (39-51); HEMOGLOBIN 8.3 g/dL (13.5-17.5); LYMPHOCYTES # (AUTO) 2.7 K/uL (0.8-4.8); LYMPHOCYTES % (AUTO) 31.2 % (20.0-44.0); MEAN CORPUSCULAR HEMOGLOBIN 28 PG (26.0-33.0); MEAN CORPUSCULAR HGB CONC 31 g/dl (31.0-36.0); MEAN CORPUSCULAR VOLUME 88 fL (80-96); MONOCYTES # (AUTO) 0.7 K/uL (0.1-1.30); MONOCYTES % (AUTO) 8.6 % (2.0-12.0); NEUTROPHILS # (AUTO) 4.7 K/uL (1.8-8.9); NEUTROPHILS % (AUTO) 55.6 % (43.0-81.0); PLATELET COUNT (AUTO) 235 K/uL (150-450); RED BLOOD CELL COUNT(AUTO) 3.02 MIL/uL (4.5-6.0); RED CELL DISTRIBUTION WIDTH 18.1 % (11.5-15.0); WHITE BLOOD COUNT (AUTO) 8.5 K/uL (4.3-11.0)
[2023-08-25 06:49] LABS: BILIRUBIN,TOTAL 0.2 mg/dL (0.2-1.0); MAGNESIUM 2.1 mg/dL (1.8-2.4); PHOSPHORUS 2.8 mg/dL (2.5-4.9); POTASSIUM 4.4 mmol/L (3.5-5.1); TOTAL PROTEIN, SERUM 6.3 g/dL (6.4-8.2)
[2023-08-25 07:06] LABS: ALBUMIN 1.4 g/dL (3.4-5.0)
[2023-08-25 07:30] VITALS: BP 108/68; TEMP 97.7; O2SAT 97
[2023-08-25] MEDS: PANTOPRAZOLE 40 MG/PACK PACK GT SCH (08:54)
[2023-08-25] MEDS: SUCRALFATE 1 G TABLET PO SCH ×4 (08:54→20:23)
[2023-08-25] MEDS: OLANZAPINE 5 MG TABLET GT SCH ×2 (08:54→17:06)
[2023-08-25] MEDS: NYSTATIN/TRIAMCIN CREAM 15 GM TUBE TP SCH ×2 (08:54→20:23)
[2023-08-25] MEDS: PROSOURCE / PROSTAT (PYXIS) 30 ML UDC GT SCH ×2 (08:55→17:06)
[2023-08-25] MEDS: Z GUARD REMEDY 4 OZ OINT TP SCH ×2 (08:55→20:24)
[2023-08-25] MEDS: CEFEPIME 2 GM in IV D5W 100 ML IV SCH ×2 (09:01→21:00)
[2023-08-25 15:59] VITALS: BP 111/72; TEMP 98.6; O2SAT 100
[2023-08-25 20:00] VITALS: BP 105/81; TEMP 97.9; O2SAT 97
[2023-08-25] MEDS: TAMSULOSIN 0.4 MG CAP.SR.24H GT SCH (21:10)
[2023-08-25] MEDS: SERTRALINE HCL 25 MG TABLET GT SCH (21:10)
[2023-08-25] MEDS: ATORVASTATIN 10 MG TABLET GT SCH (21:10)
[2023-08-25] MEDS: INSULIN GLARGINE, 100 UNIT/ML CARTRIDGE SQ SCH (21:52)
[2023-08-26] VITALS: BP 111/65; TEMP 97.6; O2SAT 97
[2023-08-26] MEDS: LORAZEPAM INJ 2 MG/ML VIAL IV PRN (02:37)
[2023-08-26] MEDS ORDERED: METOPROLOL TARTRATE INJ 5 MG/5 ML AMPUL IVP ONE (03:30)
[2023-08-26 04:00] VITALS: BP 99/55; TEMP 97.6; O2SAT 98
[2023-08-26] MEDS ORDERED: IV NS 0.9% 500 ML IV ONE ×2 (05:00→07:00)
[2023-08-26] MEDS: METOPROLOL TARTRATE 25 MG TABLET GT SCH ×4 (05:55→18:48)
[2023-08-26 06:51] LABS: BASOPHILS # (AUTO) 0.1 K/uL (0.0-0.2); BASOPHILS % (AUTO) 0.8 % (0.0-2.0); EOSINOPHILS # (AUTO) 0.2 K/uL (0.0-0.7); EOSINOPHILS % (AUTO) 2.3 % (0.0-6.0); HEMATOCRIT 28 % (39-51); HEMOGLOBIN 8.9 g/dL (13.5-17.5); LYMPHOCYTES # (AUTO) 2.7 K/uL (0.8-4.8); LYMPHOCYTES % (AUTO) 26.3 % (20.0-44.0); MEAN CORPUSCULAR HEMOGLOBIN 28 PG (26.0-33.0); MEAN CORPUSCULAR HGB CONC 31 g/dl (31.0-36.0); MEAN CORPUSCULAR VOLUME 89 fL (80-96); MONOCYTES # (AUTO) 0.8 K/uL (0.1-1.30); MONOCYTES % (AUTO) 7.4 % (2.0-12.0); NEUTROPHILS # (AUTO) 6.5 K/uL (1.8-8.9); NEUTROPHILS % (AUTO) 63.2 % (43.0-81.0); PLATELET COUNT (AUTO) 241 K/uL (150-450); RED CELL DISTRIBUTION WIDTH 18.4 % (11.5-15.0); WHITE BLOOD COUNT (AUTO) 10.3 K/uL (4.3-11.0)
[2023-08-26 07:28] LABS: ALBUMIN 1.5 g/dL (3.4-5.0); BILIRUBIN,TOTAL 0.2 mg/dL (0.2-1.0); CALCIUM, SERUM 9.1 mg/dL (8.5-10.1); MAGNESIUM 2.2 mg/dL (1.8-2.4); PHOSPHORUS 2.8 mg/dL (2.5-4.9); POTASSIUM 4.7 mmol/L (3.5-5.1); TOTAL PROTEIN, SERUM 6.6 g/dL (6.4-8.2)
[2023-08-26 07:30] VITALS: BP 110/69; TEMP 98.7; O2SAT 100
[2023-08-26] MEDS: Z GUARD REMEDY 4 OZ OINT TP SCH ×2 (09:17→21:23)
[2023-08-26] MEDS: PROSOURCE / PROSTAT (PYXIS) 30 ML UDC GT SCH ×2 (09:17→16:52)
[2023-08-26] MEDS: SUCRALFATE 1 G TABLET PO SCH ×4 (09:17→21:22)
[2023-08-26] MEDS: NYSTATIN/TRIAMCIN CREAM 15 GM TUBE TP SCH ×2 (09:17→21:23)
[2023-08-26] MEDS: OLANZAPINE 5 MG TABLET GT SCH ×2 (09:17→16:52)
[2023-08-26] MEDS: PANTOPRAZOLE 40 MG/PACK PACK GT SCH (09:17)
[2023-08-26] MEDS: CEFEPIME 2 GM in IV D5W 100 ML IV SCH ×2 (10:34→21:22)
[2023-08-26 12:00] VITALS: BP 102/63; TEMP 97.2; O2SAT 97
[2023-08-26 16:00] VITALS: BP 116/84; TEMP 97.7; O2SAT 96
[2023-08-26] MEDS: NEPRO 1,000 ML BOTTLE GT PRN (17:15)
[2023-08-26 20:00] VITALS: BP 104/62; TEMP 97.9; O2SAT 96
[2023-08-26] MEDS: ATORVASTATIN 10 MG TABLET GT SCH (21:22)
[2023-08-26] MEDS: SERTRALINE HCL 25 MG TABLET GT SCH (21:22)
[2023-08-26] MEDS: TAMSULOSIN 0.4 MG CAP.SR.24H GT SCH (21:22)
[2023-08-26] MEDS: INSULIN GLARGINE, 100 UNIT/ML CARTRIDGE SQ SCH (22:13)
[2023-08-27] VITALS (7 sets, daily range): BP systolic 94–140; BP diastolic 66–81; TEMP 97.3–98.4; O2SAT 93–99
[2023-08-27] MEDS: METOPROLOL TARTRATE 25 MG TABLET GT SCH ×4 (06:00→17:03)
[2023-08-27 06:35] LABS: CALCIUM, SERUM 9.4 mg/dL (8.5-10.1); POTASSIUM 4.4 mmol/L (3.5-5.1)
[2023-08-27] MEDS: OLANZAPINE 5 MG TABLET GT SCH ×2 (08:40→16:06)
[2023-08-27] MEDS: PANTOPRAZOLE 40 MG/PACK PACK GT SCH (08:40)
[2023-08-27] MEDS: SUCRALFATE 1 G TABLET PO SCH ×4 (08:41→20:50)
[2023-08-27] MEDS: PROSOURCE / PROSTAT (PYXIS) 30 ML UDC GT SCH ×2 (08:44→16:06)
[2023-08-27] MEDS: Z GUARD REMEDY 4 OZ OINT TP SCH ×2 (09:28→20:42)
[2023-08-27] MEDS: NYSTATIN/TRIAMCIN CREAM 15 GM TUBE TP SCH ×2 (09:28→20:43)
[2023-08-27] MEDS: CEFEPIME 2 GM in IV D5W 100 ML IV SCH ×2 (09:30→21:03)
[2023-08-27] MEDS: NEPRO 1,000 ML BOTTLE GT PRN (13:42)
[2023-08-27] MEDS: TAMSULOSIN 0.4 MG CAP.SR.24H GT SCH (21:04)
[2023-08-27] MEDS: SERTRALINE HCL 25 MG TABLET GT SCH (21:05)
[2023-08-27] MEDS: ATORVASTATIN 10 MG TABLET GT SCH (21:05)
[2023-08-27] MEDS: INSULIN GLARGINE, 100 UNIT/ML CARTRIDGE SQ SCH (22:00)
[2023-08-28] VITALS: BP 103/91; TEMP 98.6; O2SAT 98
[2023-08-28] MEDS: METOPROLOL TARTRATE 25 MG TABLET GT SCH ×3 (00:20→15:06)
[2023-08-28 04:00] VITALS: BP 119/63; TEMP 97.9; O2SAT 97
[2023-08-28 07:18] LABS: CREATININE 0.9 mg/dL (0.6-1.3); POTASSIUM 4.1 mmol/L (3.5-5.1)
[2023-08-28 08:45] VITALS: BP 97/77; TEMP 97.7; O2SAT 99
[2023-08-28] MEDS: SUCRALFATE 1 G TABLET PO SCH ×2 (10:00→15:06)
[2023-08-28] MEDS: PANTOPRAZOLE 40 MG/PACK PACK GT SCH (10:01)
[2023-08-28] MEDS: NYSTATIN/TRIAMCIN CREAM 15 GM TUBE TP SCH (10:01)
[2023-08-28] MEDS: OLANZAPINE 5 MG TABLET GT SCH (10:01)
[2023-08-28] MEDS: Z GUARD REMEDY 4 OZ OINT TP SCH (10:02)
[2023-08-28] MEDS: PROSOURCE / PROSTAT (PYXIS) 30 ML UDC GT SCH (10:03)
[2023-08-28] MEDS: CEFEPIME 2 GM in IV D5W 100 ML IV SCH (10:06)
[2023-08-28 15:06] VITALS: BP 122/70
== END 2023-08-28 15:30 | DRG 207 ==
LOC: ER 20:15 → TRANSITION 08-15 07:37 → ICU 08-15 08:37 → TELE 08-18 17:55
PROVIDERS: ADMIT Nurse Practitioner Acute Care; ATTEND Internal Medicine
PROC: 5A1955Z Respiratory Ventilation, Greater than 96 Consecutive Hours (ICD-10-PCS; principal; 2023-08-15)
PROC: 05HC33Z Insertion of Infusion Device into Left Basilic Vein, Percutaneous Approach (ICD-10-PCS; 2023-08-15)
DX: J95.01 Hemorrhage from tracheostomy stoma (principal); J15.69 Pneumonia due to other Gram-negative bacteria; E43 Unspecified severe protein-calorie malnutrition; J96.21 Acute and chronic respiratory failure with hypoxia; J69.0 Pneumonitis due to inhalation of food and vomit; G93.41 Metabolic encephalopathy; N17.0 Acute kidney failure with tubular necrosis; T83.511A Infection and inflammatory reaction due to indwelling urethral catheter, initial encounter; Z99.11 Dependence on respirator [ventilator] status; J90 Pleural effusion, not elsewhere classified; J44.0 Chronic obstructive pulmonary disease with (acute) lower respiratory infection; D68.59 Other primary thrombophilia; J95.851 Ventilator associated pneumonia; R64 Cachexia; I48.92 Unspecified atrial flutter; B37.49 Other urogenital candidiasis; Y84.8 Other medical procedures as the cause of abnormal reaction of the patient, or of later complication, without mention of misadventure at the time of the procedure; Y92.9 Unspecified place or not applicable; E11.22 Type 2 diabetes mellitus with diabetic chronic kidney disease; Z20.822 Contact with and (suspected) exposure to COVID-19; E11.51 Type 2 diabetes mellitus with diabetic peripheral angiopathy without gangrene; I12.9 Hypertensive chronic kidney disease with stage 1 through stage 4 chronic kidney disease, or unspecified chronic kidney disease; N18.9 Chronic kidney disease, unspecified; Y84.6 Urinary catheterization as the cause of abnormal reaction of the patient, or of later complication, without mention of misadventure at the time of the procedure; Y92.129 Unspecified place in nursing home as the place of occurrence of the external cause; I48.0 Paroxysmal atrial fibrillation; R33.9 Retention of urine, unspecified; E86.0 Dehydration; D63.8 Anemia in other chronic diseases classified elsewhere; D50.0 Iron deficiency anemia secondary to blood loss (chronic); E87.5 Hyperkalemia; Y92.10 Unspecified residential institution as the place of occurrence of the external cause; Z74.01 Bed confinement status; E88.09 Other disorders of plasma-protein metabolism, not elsewhere classified; R13.10 Dysphagia, unspecified; Z74.09 Other reduced mobility; Y95 Nosocomial condition; Z86.73 Personal history of transient ischemic attack (TIA), and cerebral infarction without residual deficits; E78.5 Hyperlipidemia, unspecified; Z79.4 Long term (current) use of insulin; Z79.51 Long term (current) use of inhaled steroids; Z79.899 Other long term (current) drug therapy
CPT/HCPCS: 31720; 36410; 36415; 36600; 71045-TC; 80048-TC; 80053-TC; 80061-TC; 80076-TC; 80202-TC; 81001; 82550-TC; 82570-TC; 82803-TC; 82962-TC; 83605-TC; 83735-TC; 83970; 84100-TC; 84155; 84165; 84300-TC; 84484-TC; 85025-TC; 85730-TC; 87040-TC; 87081-TC; 87086-TC; 94003-TC; 94760-TC; 94762-TC; 94799-TC; A4216; A4223; A4623; A7526; C9113; G0378; J0692; J1450; J1815; J2060; J2405; J3370; J3490; J7040; J7050; J7060; Q9967

== ENCOUNTER 2023-09-07 16:43 | Inpatient (IN) | payer MEDICARE ==
[~2023-09-07] VITALS: Ht 185.4 cm; Wt 63.5 kg
[~2023-09-07 16:43] MED LIST: ACET-868 GT; AMIO200T5 GT; ATOR10TA GT; CHLO473M5 MM; CLON0.5T4 GT; ENOX40DI SQ; FAMO20TA80 GT; HYDR-4303 GT; INSU100I30 SQ; INSU100V39 SQ; IPRA4AER IH; MAGN400T8 GT; MELA3TAB41 GT; METO25TA6 GT; MIDO10TA GT; NYST15CR2 TP; OLAN5TAB3 GT; OSMOLITE 1.5 GT; SENN-261 GT; SERT25TA GT; SIME80TA15 GT; SODI10PO GT; SUCR1TAB GT; TAMS-12 GT
[2023-09-07] MEDS ORDERED: MIRT-90 GT (17:35)
[2023-09-07] MEDS ORDERED: BISA10SU11 RC (17:35)
[2023-09-07] MEDS ORDERED: PANT40SU2 GT (17:35)
[2023-09-07] MEDS ORDERED: ONDA4TAB5 GT (17:35)
[2023-09-07] MEDS ORDERED: MAG30ORA GT (17:35)
[2023-09-07] MEDS ORDERED: NA P133E RC (17:35)
[2023-09-07] MEDS ORDERED: AMIN30LI66 GT (17:35)
[2023-09-07] MEDS ORDERED: MAGN400O6 GT (17:35)
[2023-09-07] MEDS ORDERED: ACET-2605 GT (17:35)
[2023-09-07 17:46] LABS: BASOPHILS % (AUTO) 0.3 % (0.0-2.0); EOSINOPHILS # (AUTO) 0.1 K/uL (0.0-0.7); EOSINOPHILS % (AUTO) 0.8 % (0.0-6.0); HEMATOCRIT 25 % (39-51); HEMOGLOBIN 7.7 g/dL (13.5-17.5); LYMPHOCYTES # (AUTO) 2.9 K/uL (0.8-4.8); LYMPHOCYTES % (AUTO) 29.1 % (20.0-44.0); MEAN CORPUSCULAR HEMOGLOBIN 27 PG (26.0-33.0); MEAN CORPUSCULAR HGB CONC 32 g/dl (31.0-36.0); MEAN CORPUSCULAR VOLUME 87 fL (80-96); MONOCYTES # (AUTO) 0.8 K/uL (0.1-1.30); MONOCYTES % (AUTO) 7.9 % (2.0-12.0); NEUTROPHILS # (AUTO) 6.1 K/uL (1.8-8.9); NEUTROPHILS % (AUTO) 61.9 % (43.0-81.0); PLATELET COUNT (AUTO) 238 K/uL (150-450); RED BLOOD CELL COUNT(AUTO) 2.81 MIL/uL (4.5-6.0); WHITE BLOOD COUNT (AUTO) 9.9 K/uL (4.3-11.0)
[2023-09-07 17:59] LABS: INR 1.21 (0.91-1.10); PARTIAL THROMBOPLASTIN TIME 41.3 SEC (24.3-34.3); PROTHROMBIN TIME 12.7 SECS (9.2-11.1)
[2023-09-07] MEDS ORDERED: VANCOMYCIN 1 GM in IV D5W 250 ML IV ONE (18:00)
[2023-09-07] MEDS ORDERED: AZITHROMYCIN 500 MG in IV D5W 250 ML IV ONE (18:00)
[2023-09-07] MEDS ORDERED: PIPERACILLIN /TAZOBACTAM 3.375 G in IV D5W 50 ML IV ONE (18:00)
[2023-09-07 18:09] LABS: ALANINE AMINOTRANSFERASE 23 U/L (12-78); ALBUMIN 1.8 g/dL (3.4-5.0); ALKALINE PHOSPHATASE 112 U/L (46-116); ASPARTATE AMINOTRANSFERASE 16 U/L (15-37); BILIRUBIN,DIRECT 0.1 mg/dL (0.0-0.2); BILIRUBIN,TOTAL 0.2 mg/dL (0.2-1.0); CALCIUM, SERUM 8.5 mg/dL (8.5-10.1); CARBON DIOXIDE 30 mmol/L (21-32); CHLORIDE 99 mmol/L (98-107); GLUCOSE 97 mg/dL (74-106); POTASSIUM 5.3 mmol/L (3.5-5.1); SODIUM SERUM 132 mmol/L (136-145); TOTAL PROTEIN, SERUM 6.6 g/dL (6.4-8.2); UREA NITROGEN, BLOOD 43 mg/dL (7-18)
[2023-09-07 18:45] LABS: LACTIC ACID 0.5 mmol/L (0.4-2.0)
[2023-09-07] MEDS ORDERED: IV NS 0.9% 1,000 ML BAG IV ONE (19:00)
[2023-09-07 19:07] LABS: APPEARANCE,URINE CLEAR (CLEAR); BILIRUBIN,URINE NEGATIVE (NEGATIVE); BLOOD, URINE NEGATIVE Ery/uL (NEGATIVE); COLOR,URINE YELLOW (YELLOW); KETONES,URINE NEGATIVE (NEGATIVE); LEUKOCYTE ESTERASE ,URINE 1+ (NEGATIVE); NITRITE, URINE NEGATIVE (NEGATIVE); PROTEIN,URINE TRACE mg/dl (NEGATIVE); UGLUCOSE NEGATIVE (NEGATIVE); UROBILINOGEN,URINE 0.2 EU/dL (0.2)
[2023-09-07 19:10] LABS: ADD URINE CULTURE YES; BACTERIA,URINE Few /HPF (None Seen); MUCUS,URINE Few /LPF (None Seen); RBC,URINE NONE SEEN /HPF (0-2); SQUAMOUS EPITHELIAL CELL,UR None Seen /HPF (None Seen)
[2023-09-07 21:45] VITALS: BP 125/84; TEMP 98; O2SAT 98
[2023-09-08] VITALS (7 sets, daily range): BP systolic 81–144; BP diastolic 47–100; TEMP 97.5–98; O2SAT 96–100
[2023-09-08] MEDS ORDERED: Medication Not On Formulary EA (Ipratropium/Albuterol Sulfate (Combivent Respimat 20-100 IH PRN (02:30)
[2023-09-08] MEDS ORDERED: ONDANSETRON HCL/PF 4 MG/2 ML VIAL IVP PRN (02:30)
[2023-09-08] MEDS ORDERED: NA PHOS,M-B/NA PHOS,DI-BA 1 EA ENEMA RC PRN (02:30)
[2023-09-08] MEDS ORDERED: ACETAMINOPHEN 325 MG TABLET PO PRN (02:30)
[2023-09-08] MEDS ORDERED: HYDROCODONE/APAP 5/325MG TABLET GT PRN (02:30)
[2023-09-08] MEDS ORDERED: DEXTROSE 50%-WATER 50 ML DISP.SYRIN IV PRN (03:00)
[2023-09-08] MEDS ORDERED: ZOSYN IVPB 3.375 G in IV D5W 50ml IV SCH (03:00)
[2023-09-08] MEDS ORDERED: ALBUTEROL FS 2.5 MG/0.5 ML VIAL.NEB NEB PRN (03:00)
[2023-09-08] MEDS ORDERED: IPRATROPIUM NEB FS 0.5 MG/2.5 ML AMPUL.NEB IH PRN (03:00)
[2023-09-08] MEDS ORDERED: PIPERACI/TAZO 3.375GM/D5W 50ML PB IV ONE (03:01)
[2023-09-08] MEDS ORDERED: VANCOMYCIN 1 GM /D5W 250 ML PB IV ONE (03:01)
[2023-09-08] MEDS: TAMSULOSIN 0.4 MG CAP.SR.24H GT SCH ×2 (03:10→21:14)
[2023-09-08] MEDS: OLANZAPINE 5 MG TABLET GT SCH ×3 (03:10→14:45)
[2023-09-08] MEDS: SUCRALFATE 1 G TABLET GT SCH ×5 (03:10→20:33)
[2023-09-08] MEDS: ENOXAPARIN SODIUM 40 MG/0.4 ML DISP.SYRIN SQ SCH ×2 (03:12→21:50)
[2023-09-08] MEDS: IV NS 0.9% 1,000 ML IV PRN (03:17)
[2023-09-08] MEDS: METOPROLOL TARTRATE 25 MG TABLET GT SCH ×4 (05:08→23:48)
[2023-09-08] MEDS: BLOOD SUGAR DIAGNOSTIC 1 EACH STRIP IN SCH ×4 (05:52→23:49)
[2023-09-08] MEDS: INSULIN REGULAR, HUMAN 100 UNIT/ML 3 ML VIAL SQ PRN ×2 (05:53→23:54)
[2023-09-08] MEDS ORDERED: Medication Not On Formulary EA (Ipratropium/Albuterol Sulfate (Combivent Respimat 20-100 IH SCH (06:00)
[2023-09-08] MEDS ORDERED: VANCOMYCIN 1 GM in IV D5W 250ml IV ONE (07:00)
[2023-09-08] MEDS: IPRATROPIUM NEB FS 0.5 MG/2.5 ML AMPUL.NEB IH SCH ×3 (07:35→19:49)
[2023-09-08] MEDS ORDERED: ALBUTEROL FS 2.5 MG/0.5 ML VIAL.NEB NEB SCH (07:35)
[2023-09-08] MEDS: CHLORHEXIDINE GLUCONATE 15 ML UDC MM SCH ×2 (10:38→17:18)
[2023-09-08] MEDS: PANTOPRAZOLE 40 MG/PACK PACK GT SCH (10:39)
[2023-09-08] MEDS: PIPERACILLIN /TAZOBACTAM 3.375 G in IV D5W 100 ML IV SCH ×3 (10:42→23:37)
[2023-09-08] MEDS: VANCOMYCIN 0.75 GM in IV D5W 250 ML IV SCH (18:59)
[2023-09-08] MEDS: SENNOSIDES 8.6 MG TABLET GT SCH (21:14)
[2023-09-08] MEDS ORDERED: ENOXAPARIN SODIUM 40 MG/0.4 ML DISP.SYRIN SQ ONE (21:45)
[2023-09-09] VITALS (7 sets, daily range): BP systolic 92–118; BP diastolic 65–81; TEMP 97.2–98.4; O2SAT 94–98
[2023-09-09] MEDS: clonazePAM 0.5 MG TABLET GT PRN (00:24)
[2023-09-09] MEDS: IPRATROPIUM NEB FS 0.5 MG/2.5 ML AMPUL.NEB IH SCH ×4 (01:44→19:45)
[2023-09-09] MEDS: VANCOMYCIN 0.75 GM in IV D5W 250 ML IV SCH ×2 (05:43→22:00)
[2023-09-09] MEDS: METOPROLOL TARTRATE 25 MG TABLET GT SCH ×3 (05:44→17:03)
[2023-09-09] MEDS: IV NS 0.9% 1,000 ML IV PRN (06:17)
[2023-09-09] MEDS: BLOOD SUGAR DIAGNOSTIC 1 EACH STRIP IN SCH ×3 (06:17→18:06)
[2023-09-09] MEDS: INSULIN REGULAR, HUMAN 100 UNIT/ML 3 ML VIAL SQ PRN (06:25)
[2023-09-09 07:34] LABS: BASOPHILS # (AUTO) 0.1 K/uL (0.0-0.2); EOSINOPHILS # (AUTO) 0.2 K/uL (0.0-0.7); EOSINOPHILS % (AUTO) 2.4 % (0.0-6.0); HEMATOCRIT 26 % (39-51); LYMPHOCYTES # (AUTO) 2.1 K/uL (0.8-4.8); LYMPHOCYTES % (AUTO) 31.1 % (20.0-44.0); MEAN CORPUSCULAR HEMOGLOBIN 28 PG (26.0-33.0); MEAN CORPUSCULAR HGB CONC 31 g/dl (31.0-36.0); MEAN CORPUSCULAR VOLUME 88 fL (80-96); MONOCYTES # (AUTO) 0.6 K/uL (0.1-1.30); MONOCYTES % (AUTO) 8.5 % (2.0-12.0); NEUTROPHILS # (AUTO) 3.8 K/uL (1.8-8.9); PLATELET COUNT (AUTO) 252 K/uL (150-450); RED BLOOD CELL COUNT(AUTO) 2.92 MIL/uL (4.5-6.0); RED CELL DISTRIBUTION WIDTH 19.7 % (11.5-15.0); WHITE BLOOD COUNT (AUTO) 6.7 K/uL (4.3-11.0)
[2023-09-09 07:35] LABS: CALCIUM, SERUM 8.6 mg/dL (8.5-10.1); MAGNESIUM 2.2 mg/dL (1.8-2.4); PHOSPHORUS 3.5 mg/dL (2.5-4.9); POTASSIUM 4.5 mmol/L (3.5-5.1)
[2023-09-09] MEDS: CHLORHEXIDINE GLUCONATE 15 ML UDC MM SCH ×2 (09:00→17:03)
[2023-09-09] MEDS: OLANZAPINE 5 MG TABLET GT SCH ×2 (09:00→21:30)
[2023-09-09] MEDS: PANTOPRAZOLE 40 MG/PACK PACK GT SCH (09:00)
[2023-09-09] MEDS: SUCRALFATE 1 G TABLET GT SCH ×4 (09:00→21:29)
[2023-09-09] MEDS: DIGOXIN INJ 0.5 MG/2 ML AMPUL IV SCH ×3 (09:02→21:24)
[2023-09-09] MEDS: PIPERACILLIN /TAZOBACTAM 3.375 G in IV D5W 100 ML IV SCH ×2 (09:44→15:23)
[2023-09-09] MEDS: GLUCERNA 1.2 1,000 ML BOTTLE NG PRN (17:33)
[2023-09-09] MEDS ORDERED: DIGOXIN INJ 0.5 MG/2 ML AMPUL ONE (21:15)
[2023-09-09] MEDS: TAMSULOSIN 0.4 MG CAP.SR.24H GT SCH (21:30)
[2023-09-09] MEDS: SENNOSIDES 8.6 MG TABLET GT SCH (21:31)
[2023-09-09] MEDS: ENOXAPARIN SODIUM 40 MG/0.4 ML DISP.SYRIN SQ SCH (21:32)
[2023-09-10] VITALS: BP 125/82; TEMP 98.2; O2SAT 97
[2023-09-10] MEDS: PIPERACILLIN /TAZOBACTAM 3.375 G in IV D5W 100 ML IV SCH ×3 (01:00→15:16)
[2023-09-10] MEDS: BLOOD SUGAR DIAGNOSTIC 1 EACH STRIP IN SCH ×4 (01:00→17:02)
[2023-09-10] MEDS: METOPROLOL TARTRATE 25 MG TABLET GT SCH ×4 (01:01→17:02)
[2023-09-10] MEDS: INSULIN REGULAR, HUMAN 100 UNIT/ML 3 ML VIAL SQ PRN ×4 (01:12→17:02)
[2023-09-10] MEDS: IPRATROPIUM NEB FS 0.5 MG/2.5 ML AMPUL.NEB IH SCH ×4 (01:25→19:56)
[2023-09-10 04:00] VITALS: BP 134/81; TEMP 97.9; O2SAT 99
[2023-09-10] MEDS: VANCOMYCIN 0.75 GM in IV D5W 250 ML IV SCH (06:14)
[2023-09-10 07:00] VITALS: BP 135/79; TEMP 98.2; O2SAT 99
[2023-09-10 07:12] LABS: BASOPHILS # (AUTO) 0.1 K/uL (0.0-0.2); BASOPHILS % (AUTO) 1.1 % (0.0-2.0); EOSINOPHILS # (AUTO) 0.2 K/uL (0.0-0.7); EOSINOPHILS % (AUTO) 2.4 % (0.0-6.0); HEMATOCRIT 26 % (39-51); HEMOGLOBIN 8.1 g/dL (13.5-17.5); LYMPHOCYTES % (AUTO) 30.6 % (20.0-44.0); MEAN CORPUSCULAR HEMOGLOBIN 27 PG (26.0-33.0); MEAN CORPUSCULAR HGB CONC 31 g/dl (31.0-36.0); MEAN CORPUSCULAR VOLUME 88 fL (80-96); MONOCYTES # (AUTO) 0.6 K/uL (0.1-1.30); MONOCYTES % (AUTO) 9.5 % (2.0-12.0); NEUTROPHILS # (AUTO) 3.8 K/uL (1.8-8.9); NEUTROPHILS % (AUTO) 56.4 % (43.0-81.0); PLATELET COUNT (AUTO) 258 K/uL (150-450); RED BLOOD CELL COUNT(AUTO) 2.98 MIL/uL (4.5-6.0); RED CELL DISTRIBUTION WIDTH 19.7 % (11.5-15.0); WHITE BLOOD COUNT (AUTO) 6.7 K/uL (4.3-11.0)
[2023-09-10 07:13] LABS: CALCIUM, SERUM 8.8 mg/dL (8.5-10.1); MAGNESIUM 2.1 mg/dL (1.8-2.4); PHOSPHORUS 3.9 mg/dL (2.5-4.9); POTASSIUM 5.1 mmol/L (3.5-5.1)
[2023-09-10] MEDS: CHLORHEXIDINE GLUCONATE 15 ML UDC MM SCH ×2 (08:11→16:18)
[2023-09-10] MEDS: SUCRALFATE 1 G TABLET GT SCH ×4 (08:11→21:33)
[2023-09-10] MEDS: OLANZAPINE 5 MG TABLET GT SCH ×2 (08:11→21:33)
[2023-09-10] MEDS: PANTOPRAZOLE 40 MG/PACK PACK GT SCH (08:11)
[2023-09-10] MEDS: GLUCERNA 1.2 1,000 ML BOTTLE NG PRN (11:05)
[2023-09-10 12:00] VITALS: BP 120/78; TEMP 98.1; O2SAT 98
[2023-09-10] MEDS: DIGOXIN 0.125 MG TABLET PO SCH (12:08)
[2023-09-10] MEDS: IV NS 0.9% 1,000 ML IV PRN (17:12)
[2023-09-10 20:00] VITALS: BP 124/97; TEMP 98.5; O2SAT 100
[2023-09-10 20:22] VITALS: BP 124/97; TEMP 98.5; O2SAT 100
[2023-09-10] MEDS: TAMSULOSIN 0.4 MG CAP.SR.24H GT SCH (21:33)
[2023-09-10] MEDS: SENNOSIDES 8.6 MG TABLET GT SCH (21:33)
[2023-09-10] MEDS: ENOXAPARIN SODIUM 40 MG/0.4 ML DISP.SYRIN SQ SCH (21:38)
[2023-09-11] VITALS: BP 165/97; TEMP 97.6; O2SAT 100
[2023-09-11] MEDS ORDERED: VANCOMYCIN 0.75 GM in IV D5W 250 ML IV SCH ×2
[2023-09-11] MEDS: METOPROLOL TARTRATE 25 MG TABLET GT SCH ×4 (00:32→17:25)
[2023-09-11] MEDS: clonazePAM 0.5 MG TABLET GT PRN ×2 (00:32→19:43)
[2023-09-11] MEDS: BLOOD SUGAR DIAGNOSTIC 1 EACH STRIP IN SCH ×4 (00:33→17:43)
[2023-09-11] MEDS: PIPERACILLIN /TAZOBACTAM 3.375 G in IV D5W 100 ML IV SCH ×4 (00:33→23:03)
[2023-09-11] MEDS: INSULIN REGULAR, HUMAN 100 UNIT/ML 3 ML VIAL SQ PRN ×4 (00:42→17:43)
[2023-09-11] MEDS: IPRATROPIUM NEB FS 0.5 MG/2.5 ML AMPUL.NEB IH SCH ×4 (01:28→19:55)
[2023-09-11 04:00] VITALS: BP 145/45; TEMP 97.7; O2SAT 100
[2023-09-11] MEDS: GLUCERNA 1.2 1,000 ML BOTTLE NG PRN (05:14)
[2023-09-11 08:00] VITALS: BP 107/66; TEMP 98.1; O2SAT 100
[2023-09-11] MEDS: SUCRALFATE 1 G TABLET GT SCH ×4 (08:17→21:11)
[2023-09-11] MEDS: PANTOPRAZOLE 40 MG/PACK PACK GT SCH (08:17)
[2023-09-11] MEDS: OLANZAPINE 5 MG TABLET GT SCH ×2 (08:17→21:11)
[2023-09-11] MEDS: CHLORHEXIDINE GLUCONATE 15 ML UDC MM SCH ×2 (08:17→16:33)
[2023-09-11] MEDS ORDERED: PIPE3.379 IV (09:55)
[2023-09-11] MEDS: DIGOXIN 0.125 MG TABLET PO SCH (12:05)
[2023-09-11 15:00] LABS: BASOPHILS # (AUTO) 0.1 K/uL (0.0-0.2); BASOPHILS % (AUTO) 0.9 % (0.0-2.0); EOSINOPHILS # (AUTO) 0.2 K/uL (0.0-0.7); HEMATOCRIT 28 % (39-51); HEMOGLOBIN 8.6 g/dL (13.5-17.5); LYMPHOCYTES # (AUTO) 2.8 K/uL (0.8-4.8); LYMPHOCYTES % (AUTO) 38.8 % (20.0-44.0); MEAN CORPUSCULAR HEMOGLOBIN 27 PG (26.0-33.0); MEAN CORPUSCULAR HGB CONC 31 g/dl (31.0-36.0); MEAN CORPUSCULAR VOLUME 88 fL (80-96); MONOCYTES # (AUTO) 0.6 K/uL (0.1-1.30); NEUTROPHILS # (AUTO) 3.4 K/uL (1.8-8.9); NEUTROPHILS % (AUTO) 48.3 % (43.0-81.0); PLATELET COUNT (AUTO) 246 K/uL (150-450); RED BLOOD CELL COUNT(AUTO) 3.15 MIL/uL (4.5-6.0); RED CELL DISTRIBUTION WIDTH 19.2 % (11.5-15.0); WHITE BLOOD COUNT (AUTO) 7.1 K/uL (4.3-11.0)
[2023-09-11 15:32] LABS: CALCIUM, SERUM 8.9 mg/dL (8.5-10.1); PHOSPHORUS 4.2 mg/dL (2.5-4.9); POTASSIUM 5.6 mmol/L (3.5-5.1)
[2023-09-11 16:00] VITALS: BP 124/76; TEMP 98.4; O2SAT 98
[2023-09-11] MEDS: LINEZOLID 600 MG TABLET GT SCH (16:34)
[2023-09-11 20:00] VITALS: BP 102/49; TEMP 97.7; O2SAT 100
[2023-09-11] MEDS: SENNOSIDES 8.6 MG TABLET GT SCH (21:11)
[2023-09-11] MEDS: ENOXAPARIN SODIUM 40 MG/0.4 ML DISP.SYRIN SQ SCH (21:11)
[2023-09-11] MEDS: TAMSULOSIN 0.4 MG CAP.SR.24H GT SCH (21:11)
[2023-09-12] VITALS: BP 102/62; TEMP 97.8; O2SAT 99
[2023-09-12] MEDS: BLOOD SUGAR DIAGNOSTIC 1 EACH STRIP IN SCH ×3 (00:03→14:32)
[2023-09-12] MEDS: INSULIN REGULAR, HUMAN 100 UNIT/ML 3 ML VIAL SQ PRN (00:04)
[2023-09-12] MEDS: IPRATROPIUM NEB FS 0.5 MG/2.5 ML AMPUL.NEB IH SCH ×3 (01:34→13:29)
[2023-09-12] MEDS: GLUCERNA 1.2 1,000 ML BOTTLE NG PRN (01:42)
[2023-09-12 04:00] VITALS: BP 125/93; TEMP 97.8; O2SAT 100
[2023-09-12] MEDS: METOPROLOL TARTRATE 25 MG TABLET GT SCH ×3 (06:08→14:31)
[2023-09-12 06:51] LABS: CALCIUM, SERUM 9.1 mg/dL (8.5-10.1); POTASSIUM 5.6 mmol/L (3.5-5.1)
[2023-09-12] MEDS ORDERED: SODIUM POLYSTYRENE SULFONATE 15 G/60 ML BOTTLE PO ONE ×2 (08:00→10:00)
[2023-09-12 09:17] VITALS: BP 122/66; TEMP 97.7; O2SAT 100
[2023-09-12] MEDS: OLANZAPINE 5 MG TABLET GT SCH (10:28)
[2023-09-12] MEDS: CHLORHEXIDINE GLUCONATE 15 ML UDC MM SCH (10:28)
[2023-09-12] MEDS: PANTOPRAZOLE 40 MG/PACK PACK GT SCH (10:28)
[2023-09-12] MEDS: SUCRALFATE 1 G TABLET GT SCH ×2 (10:28→14:31)
[2023-09-12] MEDS: LINEZOLID 600 MG TABLET GT SCH (10:28)
[2023-09-12] MEDS: PIPERACILLIN /TAZOBACTAM 3.375 G in IV D5W 100 ML IV SCH ×2 (10:39→16:32)
[2023-09-12 13:01] VITALS: BP 132/77; TEMP 97.5; O2SAT 100
[2023-09-12 14:31] VITALS: BP 132/77
[2023-09-12] MEDS: DIGOXIN 0.125 MG TABLET PO SCH (14:32)
== END 2023-09-12 18:02 | DRG 207 ==
LOC: ER 16:46 → TELE 21:19
PROVIDERS: ADMIT Nurse Practitioner Acute Care; ATTEND Internal Medicine
PROC: 5A1955Z Respiratory Ventilation, Greater than 96 Consecutive Hours (ICD-10-PCS; principal; 2023-09-08)
DX: J15.69 Pneumonia due to other Gram-negative bacteria (principal); E43 Unspecified severe protein-calorie malnutrition; J96.21 Acute and chronic respiratory failure with hypoxia; G93.41 Metabolic encephalopathy; D68.59 Other primary thrombophilia; E87.1 Hypo-osmolality and hyponatremia; I13.0 Hypertensive heart and chronic kidney disease with heart failure and stage 1 through stage 4 chronic kidney disease, or unspecified chronic kidney disease; J90 Pleural effusion, not elsewhere classified; J44.0 Chronic obstructive pulmonary disease with (acute) lower respiratory infection; I48.92 Unspecified atrial flutter; N17.9 Acute kidney failure, unspecified; N39.0 Urinary tract infection, site not specified; R64 Cachexia; Z99.11 Dependence on respirator [ventilator] status; I50.9 Heart failure, unspecified; E11.22 Type 2 diabetes mellitus with diabetic chronic kidney disease; Z79.51 Long term (current) use of inhaled steroids; Z79.899 Other long term (current) drug therapy; E78.5 Hyperlipidemia, unspecified; I48.0 Paroxysmal atrial fibrillation; E11.51 Type 2 diabetes mellitus with diabetic peripheral angiopathy without gangrene; R13.10 Dysphagia, unspecified; N18.9 Chronic kidney disease, unspecified; D63.8 Anemia in other chronic diseases classified elsewhere; D86.0 Sarcoidosis of lung; R79.89 Other specified abnormal findings of blood chemistry; E87.5 Hyperkalemia; E88.09 Other disorders of plasma-protein metabolism, not elsewhere classified; M89.8X9 Other specified disorders of bone, unspecified site; Z74.09 Other reduced mobility; Z86.73 Personal history of transient ischemic attack (TIA), and cerebral infarction without residual deficits; Y95 Nosocomial condition; Z93.0 Tracheostomy status; Z93.1 Gastrostomy status
CPT/HCPCS: 31720; 36415; 71045-TC; 80048-TC; 80076-TC; 80202-TC; 81001; 82962-TC; 83605-TC; 83735-TC; 84100-TC; 84484-TC; 85025-TC; 85730-TC; 87040-TC; 87081-TC; 87086-TC; 93307-TC; 94002-TC; 94003-TC; 94760-TC; 94762-TC; 94799-TC; 99082-TC; A4223; A4623; A7526; C9803; G0378; J0456; J1160; J1650; J1815; J2543; J3370; J7030; J7060

== ENCOUNTER 2023-10-13 06:34 | Inpatient (IN) | payer MEDICARE ==
[~2023-10-13] VITALS: Ht 188 cm; Wt 57.6 kg
[~2023-10-13 06:34] MED LIST changes: +ACET-2605 GT; +AMIN30LI66 GT; -AMIO200T5 GT; -ATOR10TA GT; +BISA10SU11 RC; -ENOX40DI SQ; -FAMO20TA80 GT; -INSU100I30 SQ; -INSU100V39 SQ; +MAG30ORA GT; +MAGN400O6 GT; -MAGN400T8 GT; -MELA3TAB41 GT; -MIDO10TA GT; +MIRT-90 GT; +NA P133E RC; -NYST15CR2 TP; +ONDA4TAB5 GT; -OSMOLITE 1.5 GT; +PANT40SU2 GT; +PIPE3.379 IV; -SERT25TA GT; -SODI10PO GT
[2023-10-13] MEDS: IV NS 0.9% 1,000 ML BAG IV ONE ×2 (06:46→07:36)
[2023-10-13 07:08] LABS: HEMATOCRIT 32 % (39-51); HEMOGLOBIN 10.1 g/dL (13.5-17.5); LYMPHOCYTES # (AUTO) 0.9 K/uL (0.8-4.8); MEAN CORPUSCULAR HEMOGLOBIN 26 PG (26.0-33.0); MEAN CORPUSCULAR HGB CONC 32 g/dl (31.0-36.0); MEAN CORPUSCULAR VOLUME 82 fL (80-96); MONOCYTES # (AUTO) 1.3 K/uL (0.1-1.30); MONOCYTES % (AUTO) 6.1 % (2.0-12.0); NEUTROPHILS # (AUTO) 19.7 K/uL (1.8-8.9); NEUTROPHILS % (AUTO) 89.9 % (43.0-81.0); PLATELET COUNT (AUTO) 520 K/uL (150-450); RED BLOOD CELL COUNT(AUTO) 3.92 MIL/uL (4.5-6.0); RED CELL DISTRIBUTION WIDTH 19.1 % (11.5-15.0)
[2023-10-13 07:09] LABS: APPEARANCE,URINE CLOUDY (CLEAR); BILIRUBIN,URINE NEGATIVE (NEGATIVE); BLOOD, URINE TRACE-INTA Ery/uL (NEGATIVE); COLOR,URINE YELLOW (YELLOW); KETONES,URINE NEGATIVE (NEGATIVE); LEUKOCYTE ESTERASE ,URINE 3+ (NEGATIVE); NITRITE, URINE NEGATIVE (NEGATIVE); PROTEIN,URINE NEGATIVE (NEGATIVE); UGLUCOSE NEGATIVE (NEGATIVE); UROBILINOGEN,URINE 0.2 EU/dL (0.2)
[2023-10-13 07:13] LABS: ADD URINE CULTURE YES; BACTERIA,URINE Moderate /HPF (None Seen); RBC,URINE 0-2 /HPF (0-2); SQUAMOUS EPITHELIAL CELL,UR Rare /HPF (None Seen); WBC,URINE 21-50 /HPF (0-3)
[2023-10-13 07:13] LABS: INR 1.13 (0.91-1.10); PARTIAL THROMBOPLASTIN TIME 34.5 SEC (24.3-34.3); PROTHROMBIN TIME 11.9 SECS (9.2-11.1)
[2023-10-13 07:21] LABS: ALANINE AMINOTRANSFERASE 26 U/L (12-78); ALBUMIN 2.6 g/dL (3.4-5.0); ALKALINE PHOSPHATASE 122 U/L (46-116); ASPARTATE AMINOTRANSFERASE 22 U/L (15-37); BILIRUBIN,DIRECT 0.1 mg/dL (0.0-0.2); BILIRUBIN,TOTAL 0.2 mg/dL (0.2-1.0); CARBON DIOXIDE 33 mmol/L (21-32); CHLORIDE 98 mmol/L (98-107); CREATININE 1.5 mg/dL (0.6-1.3); GLUCOSE 168 mg/dL (74-106); POTASSIUM 5.6 mmol/L (3.5-5.1); SODIUM SERUM 137 mmol/L (136-145); TOTAL PROTEIN, SERUM 8.9 g/dL (6.4-8.2); UREA NITROGEN, BLOOD 74 mg/dL (7-18)
[2023-10-13 07:26] LABS: LACTIC ACID 1.7 mmol/L (0.4-2.0)
[2023-10-13] MEDS: PIPERACILLIN /TAZOBACTAM 3.375 G in IV D5W 50 ML IV ONE (07:53)
[2023-10-13] MEDS ORDERED: ASCO-340 GT (08:13)
[2023-10-13] MEDS ORDERED: DIGO125T GT (08:13)
[2023-10-13] MEDS ORDERED: NUT.237L31 GT (08:13)
[2023-10-13] MEDS ORDERED: DEXA6TAB6 GT (08:13)
[2023-10-13] MEDS: VANCOMYCIN 1 GM in IV D5W 250 ML IV ONE (08:26)
[2023-10-13] MEDS ORDERED: HYDROCODONE/APAP 5/325MG TABLET GT PRN (10:00)
[2023-10-13] MEDS ORDERED: BISACODYL SUPP (10 MG) 10 MG/SUPP.RECT SUPP.RECT RC PRN (10:00)
[2023-10-13] MEDS ORDERED: Z GUARD REMEDY 4 OZ OINT TP PRN (10:00)
[2023-10-13] MEDS ORDERED: ZOLPIDEM TARTRATE 5 MG TABLET PO PRN (10:00)
[2023-10-13] MEDS ORDERED: ACETAMINOPHEN 325 MG TABLET PO PRN (10:00)
[2023-10-13] MEDS ORDERED: MAGNESIUM HYDROXIDE 30 ML UDC PO PRN (10:00)
[2023-10-13] MEDS ORDERED: GLUCERNA 1.5 1,000 ML BOTTLE GT SCH (10:00)
[2023-10-13] MEDS ORDERED: MAG HYDROX/AL HYDROX/SIMETH 30 ML UDC GT PRN (10:00)
[2023-10-13] MEDS ORDERED: SIMETHICONE 80 MG TAB.CHEW GT PRN (10:00)
[2023-10-13] MEDS ORDERED: MAG HYDROX/AL HYDROX/SIMETH 30 ML UDC PO PRN (10:00)
[2023-10-13] MEDS ORDERED: ONDANSETRON HCL/PF 4 MG/2 ML VIAL IVP PRN (10:00)
[2023-10-13] MEDS ORDERED: ACETAMINOPHEN ES 500 MG TABLET GT PRN (10:00)
[2023-10-13] MEDS ORDERED: NA PHOS,M-B/NA PHOS,DI-BA 1 EA ENEMA RC PRN (10:00)
[2023-10-13] MEDS ORDERED: ONDANSETRON 4 MG TAB.RAPDIS GT PRN (10:30)
[2023-10-13] MEDS ORDERED: ALBUTEROL FS 2.5 MG/3 ML VIAL.NEB NEB PRN (11:00)
[2023-10-13] MEDS ORDERED: IPRATROPIUM NEB FS 0.5 MG/2.5 ML AMPUL.NEB NEB PRN (11:00)
[2023-10-13 12:00] VITALS: BP 115/72; TEMP 97.3; O2SAT 100
[2023-10-13] MEDS: METOPROLOL TARTRATE 25 MG TABLET GT SCH (12:00)
[2023-10-13] MEDS: ZOSYN IVPB 3.375 G in IV D5W 50ml IV SCH (13:32)
[2023-10-13] MEDS: IV NS 0.9% 1,000 ML IV PRN (13:41)
[2023-10-13] MEDS: IPRATROPIUM NEB FS 0.5 MG/2.5 ML AMPUL.NEB NEB SCH (14:19)
[2023-10-13] MEDS: ALBUTEROL FS 2.5 MG/3 ML VIAL.NEB NEB SCH (14:20)
[2023-10-13] MEDS: clonazePAM 0.5 MG TABLET GT PRN (15:28)
[2023-10-13 16:00] VITALS: BP 138/99; TEMP 98.1; O2SAT 99
[2023-10-13] MEDS: AMIODARONE 150 MG in IV D5W 100 ML IV ONE (16:49)
[2023-10-13] MEDS: AMIODARONE 450 MG in IV D5W 241 ML IV PRN (17:18)
[2023-10-13] MEDS: CHLORHEXIDINE GLUCONATE 15 ML UDC MM SCH (17:57)
[2023-10-13 20:00] VITALS: BP 126/75; TEMP 97.9; O2SAT 99
[2023-10-13] MEDS ORDERED: CEFEPIME 1 GM in IV D5W 50 ML IV SCH (20:00)
[2023-10-13] MEDS: VANCOMYCIN 500 MG in IV D5W 100ml IV SCH (20:37)
[2023-10-13] MEDS: OLANZAPINE 5 MG TABLET GT SCH (20:44)
[2023-10-13] MEDS: CEFEPIME 2 GM in IV D5W 100 ML IV SCH (21:58)
[2023-10-13] MEDS: TAMSULOSIN 0.4 MG CAP.SR.24H GT SCH (21:59)
[2023-10-13] MEDS: MIRTAZAPINE 15 MG TABLET GT SCH (21:59)
[2023-10-14] VITALS: BP 114/83; TEMP 98.4; O2SAT 100
[2023-10-14 04:00] VITALS: BP 135/99; TEMP 98.1; O2SAT 98
[2023-10-14 07:22] LABS: BASOPHILS % (AUTO) 0.2 % (0.0-2.0); EOSINOPHILS % (AUTO) 0.1 % (0.0-6.0); HEMATOCRIT 27 % (39-51); HEMOGLOBIN 8.2 g/dL (13.5-17.5); LYMPHOCYTES # (AUTO) 1.5 K/uL (0.8-4.8); LYMPHOCYTES % (AUTO) 8.8 % (20.0-44.0); MEAN CORPUSCULAR HEMOGLOBIN 25 PG (26.0-33.0); MEAN CORPUSCULAR HGB CONC 31 g/dl (31.0-36.0); MEAN CORPUSCULAR VOLUME 83 fL (80-96); NEUTROPHILS # (AUTO) 14.2 K/uL (1.8-8.9); NEUTROPHILS % (AUTO) 84.9 % (43.0-81.0); PLATELET COUNT (AUTO) 386 K/uL (150-450); RED BLOOD CELL COUNT(AUTO) 3.26 MIL/uL (4.5-6.0); WHITE BLOOD COUNT (AUTO) 16.7 K/uL (4.3-11.0)
[2023-10-14] MEDS ORDERED: PANTOPRAZOLE 40 MG TABLET.DR PO SCH (07:30)
[2023-10-14 08:00] VITALS: BP 104/77; TEMP 98.1; O2SAT 100
[2023-10-14 08:02] LABS: CALCIUM, SERUM 8.8 mg/dL (8.5-10.1); CREATININE 0.9 mg/dL (0.6-1.3); MAGNESIUM 2.1 mg/dL (1.8-2.4); PHOSPHORUS 2.9 mg/dL (2.5-4.9); POTASSIUM 4.6 mmol/L (3.5-5.1)
[2023-10-14 08:26] LABS: THYROID STIMULATING HORMONE 0.423 uIU/mL (0.358-3.74)
[2023-10-14] MEDS: ASCORBIC ACID 500 MG TABLET GT SCH (08:33)
[2023-10-14] MEDS: dexAMETHasone 1 MG TABLET GT SCH (08:33)
[2023-10-14] MEDS: PANTOPRAZOLE 40 MG/PACK PACK GT SCH (08:33)
[2023-10-14] MEDS: DIGOXIN 0.125 MG TABLET GT SCH (08:33)
[2023-10-14] MEDS: PROSOURCE / PROSTAT (PYXIS) 30 ML UDC GT SCH (08:34)
[2023-10-14] MEDS: APIXABAN 5 MG TABLET PO SCH (10:54)
[2023-10-14 12:00] VITALS: BP 107/66; TEMP 98.2; O2SAT 100
[2023-10-14] MEDS ORDERED: GLUCERNA 1.2 1,000 ML BOTTLE NG PRN (12:30)
[2023-10-14] MEDS ORDERED: ZOLPIDEM TARTRATE 5 MG TABLET GT PRN (12:58)
[2023-10-14] MEDS: GLUCERNA 1.2 1,000 ML BOTTLE NG PRN (13:42)
[2023-10-14] MEDS: ACETAMINOPHEN 650 MG/20.3 ML UDC NG PRN (15:39)
[2023-10-14 16:00] VITALS: BP 107/66; TEMP 97.3; O2SAT 100
[2023-10-14] MEDS: DIGOXIN INJ 0.5 MG/2 ML AMPUL IV SCH (17:16)
[2023-10-14] MEDS: VANCOMYCIN HCL 0.75 GM in IV D5W 250 ML IV SCH (19:20)
[2023-10-14 20:00] VITALS: BP 117/66; TEMP 97.5; O2SAT 100
[2023-10-15] VITALS: BP 125/61; TEMP 97.2; O2SAT 100
[2023-10-15 04:00] VITALS: BP 119/63; TEMP 97.6; O2SAT 100
[2023-10-15 06:55] LABS: BASOPHILS # (AUTO) 0.1 K/uL (0.0-0.2); BASOPHILS % (AUTO) 0.4 % (0.0-2.0); EOSINOPHILS # (AUTO) 0.2 K/uL (0.0-0.7); HEMATOCRIT 27 % (39-51); HEMOGLOBIN 8.4 g/dL (13.5-17.5); LYMPHOCYTES # (AUTO) 1.7 K/uL (0.8-4.8); MEAN CORPUSCULAR HEMOGLOBIN 26 PG (26.0-33.0); MEAN CORPUSCULAR HGB CONC 31 g/dl (31.0-36.0); MEAN CORPUSCULAR VOLUME 83 fL (80-96); MONOCYTES # (AUTO) 1.1 K/uL (0.1-1.30); MONOCYTES % (AUTO) 7.6 % (2.0-12.0); NEUTROPHILS # (AUTO) 11.4 K/uL (1.8-8.9); PLATELET COUNT (AUTO) 353 K/uL (150-450); RED BLOOD CELL COUNT(AUTO) 3.25 MIL/uL (4.5-6.0); WHITE BLOOD COUNT (AUTO) 14.4 K/uL (4.3-11.0)
[2023-10-15 07:23] LABS: ALBUMIN 1.8 g/dL (3.4-5.0); BILIRUBIN,TOTAL 0.2 mg/dL (0.2-1.0); CALCIUM, SERUM 8.9 mg/dL (8.5-10.1); CREATININE 0.9 mg/dL (0.6-1.3); MAGNESIUM 2.1 mg/dL (1.8-2.4); PHOSPHORUS 3.1 mg/dL (2.5-4.9); POTASSIUM 4.4 mmol/L (3.5-5.1); TOTAL PROTEIN, SERUM 6.9 g/dL (6.4-8.2)
[2023-10-15 08:00] VITALS: BP 145/91; TEMP 98; O2SAT 96
[2023-10-15 12:00] VITALS: BP 133/78; TEMP 97.9; O2SAT 96
[2023-10-15] MEDS ORDERED: DEXTROSE 50%-WATER 50 ML DISP.SYRIN IV PRN (12:00)
[2023-10-15] MEDS: BLOOD SUGAR DIAGNOSTIC 1 EACH STRIP VI SCH (12:23)
[2023-10-15] MEDS ORDERED: DIGOXIN ELIX UDC 0.25 MG/5 ML UDC GT SCH (13:00)
[2023-10-15 16:00] VITALS: BP 139/87; TEMP 97.9; O2SAT 96
[2023-10-15] MEDS: INSULIN REGULAR, HUMAN 100 UNIT/ML 3 ML VIAL SQ PRN (17:07)
[2023-10-15 20:00] VITALS: BP 126/97; TEMP 97.5; O2SAT 100
[2023-10-16] VITALS: BP 123/84; TEMP 97.5; O2SAT 96
[2023-10-16] MEDS: GLUCERNA 1.2 1,000 ML BOTTLE NG PRN (00:08)
[2023-10-16 04:00] VITALS: BP 102/54; TEMP 97.8; O2SAT 98
[2023-10-16 07:01] LABS: BASOPHILS % (AUTO) 0.2 % (0.0-2.0); HEMATOCRIT 26 % (39-51); HEMOGLOBIN 8.2 g/dL (13.5-17.5); LYMPHOCYTES # (AUTO) 1.6 K/uL (0.8-4.8); LYMPHOCYTES % (AUTO) 18.2 % (20.0-44.0); MEAN CORPUSCULAR HEMOGLOBIN 26 PG (26.0-33.0); MEAN CORPUSCULAR HGB CONC 31 g/dl (31.0-36.0); MEAN CORPUSCULAR VOLUME 82 fL (80-96); MONOCYTES # (AUTO) 0.7 K/uL (0.1-1.30); MONOCYTES % (AUTO) 7.7 % (2.0-12.0); NEUTROPHILS # (AUTO) 6.5 K/uL (1.8-8.9); NEUTROPHILS % (AUTO) 73.9 % (43.0-81.0); PLATELET COUNT (AUTO) 338 K/uL (150-450); RED BLOOD CELL COUNT(AUTO) 3.16 MIL/uL (4.5-6.0); RED CELL DISTRIBUTION WIDTH 19.3 % (11.5-15.0); WHITE BLOOD COUNT (AUTO) 8.8 K/uL (4.3-11.0)
[2023-10-16 07:19] LABS: CARBON DIOXIDE 25 mmol/L (21-32); CHLORIDE 111 mmol/L (98-107); CREATININE 0.9 mg/dL (0.6-1.3); GLUCOSE 116 mg/dL (74-106); MAGNESIUM 2.1 mg/dL (1.8-2.4); PHOSPHORUS 3.3 mg/dL (2.5-4.9); POTASSIUM 4.9 mmol/L (3.5-5.1); SODIUM SERUM 142 mmol/L (136-145); UREA NITROGEN, BLOOD 30 mg/dL (7-18)
[2023-10-16 08:00] VITALS: BP 111/82; TEMP 98.2; O2SAT 100
[2023-10-16] MEDS: DIGOXIN ELIX UDC 0.25 MG/5 ML UDC GT SCH (08:53)
[2023-10-16 09:08] LABS: PTH, INTACT 25 pg/mL (15-65)
[2023-10-16] MEDS: CLOTRIMAZOLE 1% 15 GM TUBE TP SCH (10:07)
[2023-10-16 12:00] VITALS: BP 125/73; TEMP 98.5; O2SAT 100
[2023-10-16] MEDS ORDERED: VITAMINS A AND D 56.7 GM TUBE TP PRN (12:30)
[2023-10-16 13:08] LABS: *SPE A/G RATIO 0.6 (0.7-1.7); *SPE ALBUMIN 2.3 g/dL (2.9-4.4); *SPE ALPHA-1-GLOBULIN 0.5 g/dL (0.0-0.4); *SPE ALPHA-2-GLOBULIN 0.9 g/dL (0.4-1.0); *SPE GLOBULIN, TOTAL 3.8 g/dL (2.2-3.9); *SPE M-SPIKE 0.2 g/dL (Not Observed); *SPE PROTEIN TOTAL 6.1 g/dL (6.0-8.5); *SPEGAMMA GLOBULIN 1.4 g/dL (0.4-1.8)
[2023-10-16 16:02] VITALS: BP 126/61; TEMP 98.2; O2SAT 100
[2023-10-16 20:00] VITALS: BP 102/50; TEMP 98.2; O2SAT 99
[2023-10-16] MEDS: *INSULIN REGULAR(HUMULIN R)HUM 100 UNIT/ML VIAL SQ PRN (22:56)
[2023-10-17] VITALS: BP 100/52; TEMP 98.6; O2SAT 98
[2023-10-17 04:00] VITALS: BP 141/86; TEMP 98.2; O2SAT 99
[2023-10-17 07:27] LABS: CALCIUM, SERUM 8.6 mg/dL (8.5-10.1); CARBON DIOXIDE 27 mmol/L (21-32); CHLORIDE 108 mmol/L (98-107); GLUCOSE 110 mg/dL (74-106); PHOSPHORUS 3.1 mg/dL (2.5-4.9); SODIUM SERUM 141 mmol/L (136-145); UREA NITROGEN, BLOOD 36 mg/dL (7-18)
[2023-10-17 07:32] LABS: BASOPHILS % (AUTO) 0.2 % (0.0-2.0); HEMATOCRIT 26 % (39-51); HEMOGLOBIN 8.1 g/dL (13.5-17.5); LYMPHOCYTES # (AUTO) 1.9 K/uL (0.8-4.8); LYMPHOCYTES % (AUTO) 22.1 % (20.0-44.0); MEAN CORPUSCULAR HEMOGLOBIN 26 PG (26.0-33.0); MEAN CORPUSCULAR HGB CONC 31 g/dl (31.0-36.0); MEAN CORPUSCULAR VOLUME 82 fL (80-96); MONOCYTES # (AUTO) 0.7 K/uL (0.1-1.30); MONOCYTES % (AUTO) 7.4 % (2.0-12.0); NEUTROPHILS # (AUTO) 6.2 K/uL (1.8-8.9); NEUTROPHILS % (AUTO) 70.3 % (43.0-81.0); PLATELET COUNT (AUTO) 349 K/uL (150-450); RED BLOOD CELL COUNT(AUTO) 3.15 MIL/uL (4.5-6.0); RED CELL DISTRIBUTION WIDTH 18.9 % (11.5-15.0); WHITE BLOOD COUNT (AUTO) 8.8 K/uL (4.3-11.0)
[2023-10-17 08:00] VITALS: BP 140/87; TEMP 98; O2SAT 100
[2023-10-17] MEDS: METOPROLOL TARTRATE 25 MG TABLET GT SCH (11:23)
[2023-10-17] MEDS: Z GUARD REMEDY 4 OZ OINT TP SCH (11:41)
[2023-10-17 12:00] VITALS: BP 135/77; TEMP 98.3; O2SAT 100
[2023-10-17 16:00] VITALS: BP 117/71; TEMP 98.3; O2SAT 100
[2023-10-17] MEDS: GLUCERNA 1.2 1,000 ML BOTTLE NG PRN (17:11)
[2023-10-17 20:00] VITALS: BP 156/90; TEMP 97.5; O2SAT 96
[2023-10-18] VITALS: BP 150/98; TEMP 97.5; O2SAT 96
[2023-10-18 05:07] VITALS: BP 102/84; TEMP 98.8; O2SAT 98
[2023-10-18 08:00] VITALS: BP 132/89; TEMP 97.5; O2SAT 98
[2023-10-18 08:00] LABS: CALCIUM, SERUM 8.7 mg/dL (8.5-10.1); POTASSIUM 5.1 mmol/L (3.5-5.1)
[2023-10-18 12:00] VITALS: BP 146/92; TEMP 98; O2SAT 98
[2023-10-18 16:00] VITALS: BP 103/51; TEMP 98; O2SAT 98
[2023-10-18] MEDS: MAGNESIUM HYDROXIDE 30 ML UDC GT PRN (18:04)
[2023-10-18 20:00] VITALS: BP 97/83; TEMP 98.2; O2SAT 99
[2023-10-19] VITALS: BP 147/79; TEMP 97.5; O2SAT 98
[2023-10-19 04:00] VITALS: BP 119/98; TEMP 97.5; O2SAT 99
[2023-10-19 08:00] VITALS: BP 142/86; TEMP 97.3; O2SAT 98
[2023-10-19 08:12] LABS: BASOPHILS % (AUTO) 0.2 % (0.0-2.0); EOSINOPHILS % (AUTO) 0.4 % (0.0-6.0); HEMATOCRIT 26 % (39-51); HEMOGLOBIN 8.3 g/dL (13.5-17.5); LYMPHOCYTES # (AUTO) 2.9 K/uL (0.8-4.8); LYMPHOCYTES % (AUTO) 28.7 % (20.0-44.0); MEAN CORPUSCULAR HEMOGLOBIN 25 PG (26.0-33.0); MEAN CORPUSCULAR HGB CONC 32 g/dl (31.0-36.0); MEAN CORPUSCULAR VOLUME 80 fL (80-96); MONOCYTES % (AUTO) 9.5 % (2.0-12.0); NEUTROPHILS # (AUTO) 6.3 K/uL (1.8-8.9); NEUTROPHILS % (AUTO) 61.2 % (43.0-81.0); PLATELET COUNT (AUTO) 328 K/uL (150-450); RED BLOOD CELL COUNT(AUTO) 3.26 MIL/uL (4.5-6.0); RED CELL DISTRIBUTION WIDTH 18.6 % (11.5-15.0); WHITE BLOOD COUNT (AUTO) 10.2 K/uL (4.3-11.0)
[2023-10-19 08:25] LABS: CALCIUM, SERUM 9.3 mg/dL (8.5-10.1); PHOSPHORUS 3.3 mg/dL (2.5-4.9); POTASSIUM 5.2 mmol/L (3.5-5.1)
[2023-10-19 12:00] VITALS: BP 147/78; TEMP 98.2; O2SAT 95
[2023-10-19] MEDS ORDERED: AMOX/CLAVULANATE 875 MG TABLET GT SCH (12:00)
[2023-10-19] MEDS ORDERED: MISCELLANEOUS MED 1 EA EA XX ONE (12:00)
[2023-10-19] MEDS: AMPICILLIN /SULBACTAM 3 G in IV NS 0.9% 50 ML IJ SCH (12:09)
[2023-10-19 16:00] VITALS: BP 140/87; TEMP 97.9; O2SAT 95
[2023-10-19] MEDS: AMOX/CLAVULANATE 875 MG TABLET PO SCH (17:08)
[2023-10-19 20:00] VITALS: BP 154/99; TEMP 97.7; O2SAT 99
[2023-10-20] VITALS: BP 112/79; TEMP 97.7; O2SAT 99
[2023-10-20 04:00] VITALS: BP 128/83; TEMP 98.2; O2SAT 98
[2023-10-20 08:00] VITALS: BP 117/79; TEMP 97.7; O2SAT 98
[2023-10-20 08:01] LABS: POTASSIUM 5.1 mmol/L (3.5-5.1)
[2023-10-20 12:00] VITALS: BP 153/87; TEMP 97.7; O2SAT 96
[2023-10-20 16:00] VITALS: BP 126/79; TEMP 98.2; O2SAT 96
[2023-10-20 20:00] VITALS: BP 112/75; TEMP 99; O2SAT 97
[2023-10-21] VITALS: BP 139/87; TEMP 97.7; O2SAT 94
[2023-10-21 04:00] VITALS: BP 120/84; TEMP 97.9; O2SAT 96
[2023-10-21 08:00] VITALS: BP 109/75; TEMP 97.9; O2SAT 96; O2SAT 97
[2023-10-21 12:00] VITALS: BP 111/78; TEMP 98.1; O2SAT 98
[2023-10-21 16:00] VITALS: BP 96/61; TEMP 97.7; O2SAT 97
[2023-10-21 20:00] VITALS: BP 146/131; TEMP 97.6; O2SAT 94
[2023-10-22] VITALS: BP 125/90; TEMP 97.9; O2SAT 100
[2023-10-22 04:00] VITALS: BP 139/100; TEMP 97.6; O2SAT 99
[2023-10-22 08:00] VITALS: BP 114/92; TEMP 97.7; O2SAT 99
[2023-10-22 12:00] VITALS: BP 156/84; TEMP 98; O2SAT 99
[2023-10-22 16:00] VITALS: BP 116/68; TEMP 97.9; O2SAT 100
[2023-10-22 20:00] VITALS: BP 105/54; TEMP 97.9; O2SAT 100
[2023-10-23] VITALS: BP 103/60; TEMP 98.1; O2SAT 99
[2023-10-23 04:00] VITALS: BP 101/60; TEMP 97.5; O2SAT 98
[2023-10-23 06:49] LABS: BASOPHILS % (AUTO) 0.1 % (0.0-2.0); EOSINOPHILS # (AUTO) 0.1 K/uL (0.0-0.7); EOSINOPHILS % (AUTO) 0.5 % (0.0-6.0); HEMATOCRIT 29 % (39-51); HEMOGLOBIN 9.1 g/dL (13.5-17.5); LYMPHOCYTES # (AUTO) 2.3 K/uL (0.8-4.8); LYMPHOCYTES % (AUTO) 14.5 % (20.0-44.0); MEAN CORPUSCULAR HEMOGLOBIN 25 PG (26.0-33.0); MEAN CORPUSCULAR HGB CONC 31 g/dl (31.0-36.0); MEAN CORPUSCULAR VOLUME 80 fL (80-96); MONOCYTES # (AUTO) 0.8 K/uL (0.1-1.30); MONOCYTES % (AUTO) 5.5 % (2.0-12.0); NEUTROPHILS # (AUTO) 12.3 K/uL (1.8-8.9); NEUTROPHILS % (AUTO) 79.4 % (43.0-81.0); PLATELET COUNT (AUTO) 276 K/uL (150-450); RED BLOOD CELL COUNT(AUTO) 3.63 MIL/uL (4.5-6.0); RED CELL DISTRIBUTION WIDTH 19.5 % (11.5-15.0); WHITE BLOOD COUNT (AUTO) 15.5 K/uL (4.3-11.0)
[2023-10-23 07:32] LABS: CALCIUM, SERUM 9.2 mg/dL (8.5-10.1); CARBON DIOXIDE 27 mmol/L (21-32); CHLORIDE 103 mmol/L (98-107); CREATININE 1.1 mg/dL (0.6-1.3); GLUCOSE 139 mg/dL (74-106); MAGNESIUM 2.3 mg/dL (1.8-2.4); PHOSPHORUS 3.9 mg/dL (2.5-4.9); POTASSIUM 5.6 mmol/L (3.5-5.1); SODIUM SERUM 139 mmol/L (136-145); UREA NITROGEN, BLOOD 51 mg/dL (7-18)
[2023-10-23 08:00] VITALS: BP 138/117; TEMP 98; O2SAT 96
[2023-10-23 12:00] VITALS: BP 114/66; TEMP 98.8; O2SAT 99
[2023-10-23] MEDS: SODIUM POLYSTYRENE SULFONATE 15 G/60 ML BOTTLE PEG ONE (12:21)
[2023-10-23 16:00] VITALS: BP 160/120; TEMP 98.1; O2SAT 100
[2023-10-23 20:00] VITALS: BP 102/78; TEMP 96.8; O2SAT 100
[2023-10-24] VITALS: BP 95/68; TEMP 96.8; O2SAT 100
[2023-10-24 04:00] VITALS: BP 94/63; TEMP 97.9; O2SAT 100
[2023-10-24 06:56] LABS: BASOPHILS % (AUTO) 0.3 % (0.0-2.0); EOSINOPHILS # (AUTO) 0.1 K/uL (0.0-0.7); EOSINOPHILS % (AUTO) 1.2 % (0.0-6.0); HEMATOCRIT 27 % (39-51); HEMOGLOBIN 8.4 g/dL (13.5-17.5); LYMPHOCYTES # (AUTO) 2.4 K/uL (0.8-4.8); LYMPHOCYTES % (AUTO) 20.4 % (20.0-44.0); MEAN CORPUSCULAR HEMOGLOBIN 25 PG (26.0-33.0); MEAN CORPUSCULAR HGB CONC 31 g/dl (31.0-36.0); MEAN CORPUSCULAR VOLUME 81 fL (80-96); MONOCYTES # (AUTO) 0.8 K/uL (0.1-1.30); MONOCYTES % (AUTO) 7.1 % (2.0-12.0); NEUTROPHILS # (AUTO) 8.2 K/uL (1.8-8.9); PLATELET COUNT (AUTO) 248 K/uL (150-450); RED BLOOD CELL COUNT(AUTO) 3.33 MIL/uL (4.5-6.0); RED CELL DISTRIBUTION WIDTH 19.4 % (11.5-15.0); WHITE BLOOD COUNT (AUTO) 11.6 K/uL (4.3-11.0)
[2023-10-24 07:21] LABS: CALCIUM, SERUM 8.8 mg/dL (8.5-10.1); CARBON DIOXIDE 31 mmol/L (21-32); CHLORIDE 104 mmol/L (98-107); GLUCOSE 105 mg/dL (74-106); MAGNESIUM 2.4 mg/dL (1.8-2.4); PHOSPHORUS 3.1 mg/dL (2.5-4.9); POTASSIUM 4.4 mmol/L (3.5-5.1); SODIUM SERUM 140 mmol/L (136-145); UREA NITROGEN, BLOOD 49 mg/dL (7-18)
[2023-10-24 08:00] VITALS: BP 102/61; TEMP 98.4; O2SAT 100
[2023-10-24 12:00] VITALS: BP 95/70; TEMP 97.5; O2SAT 98
[2023-10-24 16:00] VITALS: BP 94/61; TEMP 98.6; O2SAT 100
[2023-10-24 20:00] VITALS: BP 94/70; TEMP 98.3; O2SAT 100
[2023-10-25] VITALS: BP 118/84; TEMP 98; O2SAT 98
[2023-10-25 04:00] VITALS: BP 110/72; TEMP 97.9; O2SAT 97
[2023-10-25 07:54] LABS: BASOPHILS % (AUTO) 0.4 % (0.0-2.0); EOSINOPHILS # (AUTO) 0.1 K/uL (0.0-0.7); EOSINOPHILS % (AUTO) 0.9 % (0.0-6.0); HEMATOCRIT 28 % (39-51); HEMOGLOBIN 8.5 g/dL (13.5-17.5); LYMPHOCYTES % (AUTO) 17.9 % (20.0-44.0); MEAN CORPUSCULAR HEMOGLOBIN 25 PG (26.0-33.0); MEAN CORPUSCULAR HGB CONC 31 g/dl (31.0-36.0); MEAN CORPUSCULAR VOLUME 81 fL (80-96); MONOCYTES # (AUTO) 0.9 K/uL (0.1-1.30); MONOCYTES % (AUTO) 7.9 % (2.0-12.0); NEUTROPHILS # (AUTO) 8.3 K/uL (1.8-8.9); NEUTROPHILS % (AUTO) 72.9 % (43.0-81.0); PLATELET COUNT (AUTO) 229 K/uL (150-450); RED BLOOD CELL COUNT(AUTO) 3.42 MIL/uL (4.5-6.0); RED CELL DISTRIBUTION WIDTH 19.3 % (11.5-15.0); WHITE BLOOD COUNT (AUTO) 11.3 K/uL (4.3-11.0)
[2023-10-25 08:00] VITALS: BP 101/73; TEMP 97.9; O2SAT 97
[2023-10-25 08:15] LABS: CALCIUM, SERUM 9.1 mg/dL (8.5-10.1); MAGNESIUM 2.2 mg/dL (1.8-2.4); POTASSIUM 4.6 mmol/L (3.5-5.1)
[2023-10-25 12:00] VITALS: BP 99/54; TEMP 98; O2SAT 97
[2023-10-25 16:00] VITALS: BP 101/62; TEMP 98; O2SAT 97
[2023-10-25 20:30] VITALS: BP 94/78; TEMP 98.2; O2SAT 99
[2023-10-26] VITALS: BP 91/67; TEMP 98.8; O2SAT 99
[2023-10-26 04:30] VITALS: BP 104/74; TEMP 97.5
[2023-10-26 08:00] VITALS: BP 145/87; TEMP 98.6; O2SAT 99
[2023-10-26 12:00] VITALS: BP 121/83; TEMP 98.6; O2SAT 99
[2023-10-26 16:00] VITALS: BP 115/43; TEMP 98.6; O2SAT 99
[2023-10-26 20:00] VITALS: BP 102/69; TEMP 99.3; O2SAT 99
[2023-10-27] VITALS: BP 122/66; TEMP 99.3; O2SAT 99
[2023-10-27 04:00] VITALS: BP 100/66; TEMP 97.2; O2SAT 99
[2023-10-27 08:00] VITALS: BP 116/67; TEMP 98.5; O2SAT 95
[2023-10-27 12:00] VITALS: BP 162/94; TEMP 98.4; O2SAT 95
[2023-10-27 16:00] VITALS: BP 120/83; TEMP 98.6; O2SAT 99
[2023-10-27 20:00] VITALS: BP 117/85; TEMP 99; O2SAT 97
[2023-10-28] VITALS: BP 139/74; TEMP 99.9; O2SAT 100
[2023-10-28 04:00] VITALS: BP 92/74; TEMP 98.4; O2SAT 100
[2023-10-28 13:00] VITALS: BP 140/98; TEMP 98.9; O2SAT 100
[2023-10-28 16:00] VITALS: BP 97/72; TEMP 98.9; O2SAT 93
[2023-10-28 20:00] VITALS: BP 105/61; TEMP 98.8; O2SAT 100
[2023-10-29] VITALS: BP 114/66; TEMP 98.2; O2SAT 97
[2023-10-29 04:00] VITALS: BP 113/69; TEMP 98.4; O2SAT 93
[2023-10-29 06:51] LABS: BASOPHILS % (AUTO) 0.3 % (0.0-2.0); EOSINOPHILS # (AUTO) 0.1 K/uL (0.0-0.7); EOSINOPHILS % (AUTO) 0.8 % (0.0-6.0); HEMATOCRIT 28 % (39-51); HEMOGLOBIN 8.8 g/dL (13.5-17.5); LYMPHOCYTES # (AUTO) 0.7 K/uL (0.8-4.8); LYMPHOCYTES % (AUTO) 6.2 % (20.0-44.0); MEAN CORPUSCULAR HEMOGLOBIN 25 PG (26.0-33.0); MEAN CORPUSCULAR HGB CONC 31 g/dl (31.0-36.0); MEAN CORPUSCULAR VOLUME 79 fL (80-96); MONOCYTES # (AUTO) 0.9 K/uL (0.1-1.30); MONOCYTES % (AUTO) 7.6 % (2.0-12.0); NEUTROPHILS # (AUTO) 9.7 K/uL (1.8-8.9); NEUTROPHILS % (AUTO) 85.1 % (43.0-81.0); PLATELET COUNT (AUTO) 265 K/uL (150-450); RED BLOOD CELL COUNT(AUTO) 3.53 MIL/uL (4.5-6.0); WHITE BLOOD COUNT (AUTO) 11.4 K/uL (4.3-11.0)
[2023-10-29 07:16] LABS: CALCIUM, SERUM 9.4 mg/dL (8.5-10.1); POTASSIUM 5.8 mmol/L (3.5-5.1)
[2023-10-29 08:00] VITALS: BP 124/74; TEMP 98.7; O2SAT 93
[2023-10-29] MEDS ORDERED: NUT.237L45 NG (10:57)
[2023-10-29] MEDS ORDERED: APIX5TAB PO (10:57)
[2023-10-29] MEDS ORDERED: DIGO50SO2 GT (10:57)
[2023-10-29] MEDS ORDERED: METO25TA20 GT (10:57)
[2023-10-29 12:00] VITALS: BP 125/80; TEMP 98.5; O2SAT 93
== END 2023-10-29 12:35 | DRG 870 ==
LOC: ER 06:35 → TELE1 08:33 → TELE-TD 16:20 → TELE1 10-15 11:44
PROVIDERS: ADMIT Student in an Organized Health Care Education/Training Program; ATTEND Nurse Practitioner Acute Care
PROC: 5A1955Z Respiratory Ventilation, Greater than 96 Consecutive Hours (ICD-10-PCS; principal; 2023-10-13)
DX: A41.9 Sepsis, unspecified organism (principal); E43 Unspecified severe protein-calorie malnutrition; I21.A1 Myocardial infarction type 2; G93.41 Metabolic encephalopathy; D68.59 Other primary thrombophilia; N39.0 Urinary tract infection, site not specified; Z99.11 Dependence on respirator [ventilator] status; I48.92 Unspecified atrial flutter; R64 Cachexia; J96.10 Chronic respiratory failure, unspecified whether with hypoxia or hypercapnia; Z16.12 Extended spectrum beta lactamase (ESBL) resistance; Z16.24 Resistance to multiple antibiotics; N17.9 Acute kidney failure, unspecified; I10 Essential (primary) hypertension; Z20.822 Contact with and (suspected) exposure to COVID-19; I48.0 Paroxysmal atrial fibrillation; Z93.0 Tracheostomy status; Z93.1 Gastrostomy status; R13.10 Dysphagia, unspecified; Z86.74 Personal history of sudden cardiac arrest; E11.22 Type 2 diabetes mellitus with diabetic chronic kidney disease; E11.51 Type 2 diabetes mellitus with diabetic peripheral angiopathy without gangrene; Z79.51 Long term (current) use of inhaled steroids; Z79.899 Other long term (current) drug therapy; Z86.19 Personal history of other infectious and parasitic diseases; E87.5 Hyperkalemia; E78.5 Hyperlipidemia, unspecified; M89.8X9 Other specified disorders of bone, unspecified site; N18.9 Chronic kidney disease, unspecified; D63.8 Anemia in other chronic diseases classified elsewhere; I12.9 Hypertensive chronic kidney disease with stage 1 through stage 4 chronic kidney disease, or unspecified chronic kidney disease; Z86.73 Personal history of transient ischemic attack (TIA), and cerebral infarction without residual deficits; K21.9 Gastro-esophageal reflux disease without esophagitis; K57.90 Diverticulosis of intestine, part unspecified, without perforation or abscess without bleeding; Z74.09 Other reduced mobility; I49.9 Cardiac arrhythmia, unspecified; E88.09 Other disorders of plasma-protein metabolism, not elsewhere classified; L98.9 Disorder of the skin and subcutaneous tissue, unspecified; J44.9 Chronic obstructive pulmonary disease, unspecified; B96.83 Acinetobacter baumannii as the cause of diseases classified elsewhere
CPT/HCPCS: 31720; 36415; 71045-TC; 76770-TC; 80048-TC; 80053-TC; 80076-TC; 80202-TC; 81001; 82550-TC; 82962-TC; 83605-TC; 83735-TC; 83970; 84100-TC; 84155; 84165; 84443-TC; 84484-TC; 85025-TC; 85730-TC; 87040-TC; 87081-TC; 87086-TC; 94003-TC; 94760-TC; 94762-TC; 94799-TC; A4223; A4623; A7526; G0378; J0282; J0295; J0692; J1160; J1815; J2543; J3370; J7030; J7040; J7060; J8540

== ENCOUNTER 2023-11-19 16:30 | Inpatient (IN) | payer MEDICARE ==
[~2023-11-19] VITALS: Ht 167.6 cm; Wt 37.2 kg
[~2023-11-19 16:30] MED LIST changes: +APIX5TAB PO; +ASCO-340 GT; +DEXA6TAB6 GT; +DIGO50SO2 GT; +METO25TA20 GT; +NUT.237L31 GT; +NUT.237L45 NG; -PIPE3.379 IV; -SENN-261 GT; -SUCR1TAB GT
[2023-11-19] MEDS: IV NS 0.9% 1,000 ML BAG IV ONE (16:50)
[2023-11-19 17:29] LABS: BASOPHILS # (AUTO) 0.3 K/uL (0.0-0.2); BASOPHILS % (AUTO) 3.7 % (0.0-2.0); EOSINOPHILS # (AUTO) 0.2 K/uL (0.0-0.7); EOSINOPHILS % (AUTO) 2.7 % (0.0-6.0); HEMATOCRIT 21 % (39-51); LYMPHOCYTES # (AUTO) 1.8 K/uL (0.8-4.8); LYMPHOCYTES % (AUTO) 22.8 % (20.0-44.0); MEAN CORPUSCULAR HEMOGLOBIN 25 PG (26.0-33.0); MEAN CORPUSCULAR HGB CONC 31 g/dl (31.0-36.0); MEAN CORPUSCULAR VOLUME 80 fL (80-96); MONOCYTES # (AUTO) 0.8 K/uL (0.1-1.30); MONOCYTES % (AUTO) 9.6 % (2.0-12.0); NEUTROPHILS # (AUTO) 4.8 K/uL (1.8-8.9); NEUTROPHILS % (AUTO) 61.2 % (43.0-81.0); PLATELET COUNT (AUTO) 251 K/uL (150-450); RED BLOOD CELL COUNT(AUTO) 2.63 MIL/uL (4.5-6.0); RED CELL DISTRIBUTION WIDTH 23.2 % (11.5-15.0); WHITE BLOOD COUNT (AUTO) 7.8 K/uL (4.3-11.0)
[2023-11-19 17:33] LABS: HEMOGLOBIN 6.5 g/dL (13.5-17.5)
[2023-11-19 17:36] LABS: CALCIUM, SERUM 8.2 mg/dL (8.5-10.1); CARBON DIOXIDE 30 mmol/L (21-32); CHLORIDE 104 mmol/L (98-107); CREATININE 1.1 mg/dL (0.6-1.3); GLUCOSE 104 mg/dL (74-106); POTASSIUM 5.9 mmol/L (3.5-5.1); SODIUM SERUM 136 mmol/L (136-145); UREA NITROGEN, BLOOD 50 mg/dL (7-18)
[2023-11-19] MEDS: PIPERACILLIN /TAZOBACTAM 3.375 G in IV D5W 50 ML IV ONE (17:42)
[2023-11-19 17:49] LABS: ALANINE AMINOTRANSFERASE 15 U/L (12-78); ALBUMIN 1.6 g/dL (3.4-5.0); ALKALINE PHOSPHATASE 81 U/L (46-116); ASPARTATE AMINOTRANSFERASE 17 U/L (15-37); BILIRUBIN,DIRECT 0.1 mg/dL (0.0-0.2); BILIRUBIN,TOTAL 0.2 mg/dL (0.2-1.0); NT-PRO BNP 5722 pg/mL (0-125); TOTAL PROTEIN, SERUM 6.4 g/dL (6.4-8.2)
[2023-11-19] MEDS ORDERED: MIDO5TAB4 GT (18:02)
[2023-11-19] MEDS ORDERED: APIX2.5T GT (18:02)
[2023-11-19] MEDS ORDERED: DILT30TA14 GT (18:02)
[2023-11-19] MEDS ORDERED: CALC500T53 GT (18:02)
[2023-11-19] MEDS ORDERED: METO50TA16 GT (18:02)
[2023-11-19] MEDS ORDERED: CICLOPIROX OLAMINE TP (18:02)
[2023-11-19] MEDS ORDERED: DOCU100T2 GT (18:02)
[2023-11-19] MEDS ORDERED: ALPR-323 GT (18:02)
[2023-11-19] MEDS ORDERED: FERR325T24 GT (18:02)
[2023-11-19] MEDS: VANCOMYCIN 1 GM in IV D5W 250 ML IV ONE (18:10)
[2023-11-19] MEDS: NOREPINEPHRINE 8 MG in IV D5W 242 ML IV PRN (18:15)
[2023-11-19 18:17] LABS: ANISOCYTOSIS 1+; EOSINOPHILS % (MANUAL) 2 % (0-4); LYMPHOCYTES % (MANUAL) 25 % (16-48); MONOCYTES % (MANUAL) 7 % (0-11.0); NEUTROPHILS % (MANUAL) 66 (42-76); PLATELET ESTIMATE ADEQUATE
[2023-11-19] MEDS ORDERED: SODIUM POLYSTYRENE SULFONATE 15 G/60 ML BOTTLE ONE (20:00)
[2023-11-19] MEDS: SODIUM POLYSTYRENE SULFONATE 15 G/60 ML BOTTLE PEG ONE (20:08)
[2023-11-19 21:56] LABS: APPEARANCE,URINE TURBID (CLEAR); BILIRUBIN,URINE NEGATIVE (NEGATIVE); BLOOD, URINE TRACE-INTA Ery/uL (NEGATIVE); COLOR,URINE YELLOW (YELLOW); KETONES,URINE NEGATIVE (NEGATIVE); LEUKOCYTE ESTERASE ,URINE 3+ (NEGATIVE); NITRITE, URINE NEGATIVE (NEGATIVE); PROTEIN,URINE 2+ mg/dl (NEGATIVE); UGLUCOSE NEGATIVE (NEGATIVE); UROBILINOGEN,URINE 0.2 EU/dL (0.2)
[2023-11-19 22:00] LABS: ADD URINE CULTURE YES; BACTERIA,URINE Many /HPF (None Seen); RBC,URINE 0-2 /HPF (0-2); SQUAMOUS EPITHELIAL CELL,UR Few /HPF (None Seen); WBC,URINE 51-80 /HPF (0-3); YEAST,URINE Hyphal filaments /HPF (None Seen)
[2023-11-19] MEDS ORDERED: NOREPINEPHRINE 8 MG in IV D5W 242 ML IV PRN (22:00)
[2023-11-19] MEDS ORDERED: ALBUTEROL FS 2.5 MG/3 ML VIAL.NEB NEB PRN (22:00)
[2023-11-19] MEDS ORDERED: ONDANSETRON HCL/PF 4 MG/2 ML VIAL IVP PRN (22:00)
[2023-11-19] MEDS ORDERED: IPRATROPIUM NEB FS 0.5 MG/2.5 ML AMPUL.NEB NEB PRN (22:00)
[2023-11-19] MEDS: PANTOPRAZOLE 40 MG VIAL IV SCH (22:00)
[2023-11-19] MEDS ORDERED: ACETAMINOPHEN 650 MG/SUPP.RECT RC PRN (22:00)
[2023-11-19] MEDS ORDERED: Z GUARD REMEDY 4 OZ OINT TP PRN (22:00)
[2023-11-19] MEDS ORDERED: JEVITY 1.2 CAL 1,000 ML BOTTLE GT PRN (22:00)
[2023-11-19] MEDS ORDERED: ACETAMINOPHEN 325 MG TABLET MC PRN (22:30)
[2023-11-19] MEDS ORDERED: MAG HYDROX/AL HYDROX/SIMETH 30 ML UDC GT PRN (22:30)
[2023-11-19] MEDS ORDERED: SIMETHICONE 80 MG TAB.CHEW GT PRN (22:30)
[2023-11-19] MEDS ORDERED: BISACODYL SUPP (10 MG) 10 MG/SUPP.RECT SUPP.RECT RC PRN (22:30)
[2023-11-19] MEDS ORDERED: NA PHOS,M-B/NA PHOS,DI-BA 1 EA ENEMA RC PRN (22:30)
[2023-11-19] MEDS ORDERED: MIDODRINE HCL (5MG) 5 MG TABLET GT PRN (22:30)
[2023-11-19] MEDS ORDERED: ACETAMINOPHEN ES 500 MG TABLET GT PRN (22:30)
[2023-11-19] MEDS ORDERED: MAGNESIUM HYDROXIDE 30 ML UDC GT PRN (22:30)
[2023-11-19] MEDS ORDERED: PANTOPRAZOLE 40 MG VIAL ONE (23:52)
[2023-11-19] MEDS ORDERED: DILTIAZEM HCL 30 MG TABLET ONE (23:52)
[2023-11-19] MEDS: DILTIAZEM HCL 30 MG TABLET GT SCH (23:53)
[2023-11-20] VITALS (63 sets, daily range): BP systolic 83–122; BP diastolic 53–96; TEMP 98.1–98.7; O2SAT 95–100
[2023-11-20] MEDS ORDERED: CEFEPIME 1 GM VIAL ONE (00:03)
[2023-11-20] MEDS ORDERED: VANCOMYCIN 1 GM /D5W 250 ML PB IV ONE (00:04)
[2023-11-20] MEDS: CEFEPIME 2 GM in IV D5W 100 ML IV ONE (00:24)
[2023-11-20] MEDS: VANCOMYCIN 1 GM in IV D5W 250ml IV ONE (00:24)
[2023-11-20] MEDS: IV D5/0.45 NACL 1,000 ML IV PRN (01:53)
[2023-11-20 06:35] LABS: BASOPHILS # (AUTO) 0.1 K/uL (0.0-0.2); BASOPHILS % (AUTO) 1.1 % (0.0-2.0); EOSINOPHILS # (AUTO) 0.4 K/uL (0.0-0.7); HEMATOCRIT 28 % (39-51); HEMOGLOBIN 8.6 g/dL (13.5-17.5); LYMPHOCYTES # (AUTO) 1.6 K/uL (0.8-4.8); LYMPHOCYTES % (AUTO) 26.5 % (20.0-44.0); MEAN CORPUSCULAR HEMOGLOBIN 25 PG (26.0-33.0); MEAN CORPUSCULAR HGB CONC 31 g/dl (31.0-36.0); MEAN CORPUSCULAR VOLUME 82 fL (80-96); MONOCYTES # (AUTO) 0.8 K/uL (0.1-1.30); MONOCYTES % (AUTO) 12.9 % (2.0-12.0); NEUTROPHILS # (AUTO) 3.3 K/uL (1.8-8.9); NEUTROPHILS % (AUTO) 53.5 % (43.0-81.0); PLATELET COUNT (AUTO) 250 K/uL (150-450); RED BLOOD CELL COUNT(AUTO) 3.37 MIL/uL (4.5-6.0); RED CELL DISTRIBUTION WIDTH 22.3 % (11.5-15.0); WHITE BLOOD COUNT (AUTO) 6.1 K/uL (4.3-11.0)
[2023-11-20] MEDS ORDERED: DILTIAZEM HCL 30 MG TABLET ONE (06:36)
[2023-11-20 06:46] LABS: CALCIUM, SERUM 8.5 mg/dL (8.5-10.1); CHLORIDE 103 mmol/L (98-107); CREATININE 1.1 mg/dL (0.6-1.3); GLUCOSE 125 mg/dL (74-106); MAGNESIUM 1.9 mg/dL (1.8-2.4); PHOSPHORUS 3.7 mg/dL (2.5-4.9); POTASSIUM 4.9 mmol/L (3.5-5.1); SODIUM SERUM 140 mmol/L (136-145); UREA NITROGEN, BLOOD 42 mg/dL (7-18)
[2023-11-20 06:50] LABS: CARBON DIOXIDE 30 mmol/L (21-32)
[2023-11-20] MEDS ORDERED: FERROUS SULFATE (325 MG) 325 MG/TAB TABLET GT SCH (09:00)
[2023-11-20] MEDS: METOPROLOL TARTRATE 50 MG TABLET GT SCH ×2 (10:00→11:00)
[2023-11-20] MEDS: FERROUS SULFATE UDC 300 MG/5 ML UDC GT SCH (11:00)
[2023-11-20] MEDS: DOCUSATE SODIUM LIQ 100 MG/10 ML UDC NG SCH (11:00)
[2023-11-20] MEDS: ASCORBIC ACID 500 MG TABLET GT SCH (11:00)
[2023-11-20] MEDS: CALCIUM CARBONATE (1250) 500 MG TABLET GT SCH (11:00)
[2023-11-20] MEDS: OLANZAPINE 5 MG TABLET GT SCH (11:00)
[2023-11-20] MEDS: CHLORHEXIDINE GLUCONATE 15 ML UDC MM SCH (11:36)
[2023-11-20] MEDS: CEFEPIME 2 GM in IV D5W 100 ML IV SCH (12:40)
[2023-11-20] MEDS ORDERED: VITAMINS A AND D 56.7 GM TUBE TP SCH (14:30)
[2023-11-20] MEDS: VANCOMYCIN 750 MG in IV D5W 250 ML IV SCH (14:42)
[2023-11-20] MEDS: VITAMINS A AND D 56.7 GM TUBE TP SCH (16:00)
[2023-11-20] MEDS: MORPHINE SULFATE INJ 2 MG/ML DISP.SYRIN IV PRN (16:07)
[2023-11-20] MEDS: CLOTRIMAZOLE 1% 15 GM TUBE TP SCH (17:57)
[2023-11-20 19:13] LABS: ABG OXYGEN SATURATION 97.4 % (92.0-98.5); ABG PCO2 36.5 mmHg (35.0-45.0); ABG PO2 93.6 mmHg (75.0-100.0); ABG TOTAL HEMOGLOBIN 9.2 G/dL (13.5-18.0); AaDO2 221.8 mmHg; COHb 0.1 % (0.5-1.5); MetHb 0.2 % (0.0-1.5); O2Hb 97.1 % (94.0-97.0); PEEP,BG 5 cm H2O; SITE, ABG Right Femoral; VT, ABG 500 mL
[2023-11-20] MEDS ORDERED: BISACODYL SUPP (10 MG) 10 MG/SUPP.RECT SUPP.RECT RC PRN (20:30)
[2023-11-20] MEDS: DOCUSATE SODIUM LIQ 100 MG/10 ML UDC GT SCH (21:25)
[2023-11-20] MEDS: MIRTAZAPINE 15 MG TABLET GT SCH (21:26)
[2023-11-20] MEDS: TAMSULOSIN 0.4 MG CAP.SR.24H GT SCH (21:26)
[2023-11-20] MEDS: SENNOSIDES 8.6 MG TABLET GT SCH (21:27)
[2023-11-20] MEDS: JEVITY 1.2 CAL 1,000 ML BOTTLE GT PRN (23:22)
[2023-11-20] MEDS ORDERED: JEVITY 1.2 CAL 1,000 ML BOTTLE GT PRN (23:30)
[2023-11-21] VITALS (97 sets, daily range): BP systolic 75–134; BP diastolic 51–110; TEMP 97.8–98.6; O2SAT 93–100
[2023-11-21] MEDS: ALPRAZOLAM 0.5 MG TABLET PO PRN (02:20)
[2023-11-21 04:27] LABS: BASOPHILS # (AUTO) 0.1 K/uL (0.0-0.2); BASOPHILS % (AUTO) 1.2 % (0.0-2.0); EOSINOPHILS # (AUTO) 0.4 K/uL (0.0-0.7); EOSINOPHILS % (AUTO) 7.3 % (0.0-6.0); HEMATOCRIT 25 % (39-51); HEMOGLOBIN 7.8 g/dL (13.5-17.5); LYMPHOCYTES # (AUTO) 1.2 K/uL (0.8-4.8); LYMPHOCYTES % (AUTO) 24.7 % (20.0-44.0); MEAN CORPUSCULAR HEMOGLOBIN 26 PG (26.0-33.0); MEAN CORPUSCULAR HGB CONC 32 g/dl (31.0-36.0); MEAN CORPUSCULAR VOLUME 82 fL (80-96); MONOCYTES # (AUTO) 0.5 K/uL (0.1-1.30); MONOCYTES % (AUTO) 10.7 % (2.0-12.0); NEUTROPHILS # (AUTO) 2.8 K/uL (1.8-8.9); NEUTROPHILS % (AUTO) 56.1 % (43.0-81.0); PLATELET COUNT (AUTO) 222 K/uL (150-450); RED CELL DISTRIBUTION WIDTH 22.8 % (11.5-15.0)
[2023-11-21 04:47] LABS: CALCIUM, SERUM 8.4 mg/dL (8.5-10.1); CARBON DIOXIDE 28 mmol/L (21-32); CHLORIDE 104 mmol/L (98-107); GLUCOSE 108 mg/dL (74-106); POTASSIUM 4.1 mmol/L (3.5-5.1); SODIUM SERUM 137 mmol/L (136-145); UREA NITROGEN, BLOOD 29 mg/dL (7-18)
[2023-11-21 04:50] LABS: MAGNESIUM 1.8 mg/dL (1.8-2.4); PHOSPHORUS 2.9 mg/dL (2.5-4.9)
[2023-11-21 04:51] LABS: IRON, SERUM 11 ug/dl (50-175); TOTAL IRON BINDING CAPACITY 194 ug/dl (250-450)
[2023-11-21 05:40] LABS: FERRITIN 115 ng/mL (8-388)
[2023-11-21 07:47] LABS: BASOPHILS # (AUTO) 0.1 K/uL (0.0-0.2); BASOPHILS % (AUTO) 1.2 % (0.0-2.0); EOSINOPHILS # (AUTO) 0.4 K/uL (0.0-0.7); EOSINOPHILS % (AUTO) 7.8 % (0.0-6.0); HEMATOCRIT 27 % (39-51); HEMOGLOBIN 8.4 g/dL (13.5-17.5); LYMPHOCYTES # (AUTO) 1.1 K/uL (0.8-4.8); LYMPHOCYTES % (AUTO) 21.5 % (20.0-44.0); MEAN CORPUSCULAR HEMOGLOBIN 26 PG (26.0-33.0); MEAN CORPUSCULAR HGB CONC 31 g/dl (31.0-36.0); MEAN CORPUSCULAR VOLUME 82 fL (80-96); MONOCYTES # (AUTO) 0.6 K/uL (0.1-1.30); MONOCYTES % (AUTO) 12.5 % (2.0-12.0); NEUTROPHILS # (AUTO) 2.9 K/uL (1.8-8.9); PLATELET COUNT (AUTO) 226 K/uL (150-450); RED CELL DISTRIBUTION WIDTH 23.6 % (11.5-15.0); WHITE BLOOD COUNT (AUTO) 5.1 K/uL (4.3-11.0)
[2023-11-21] MEDS: NOREPINEPHRINE 8 MG in IV D5W 242 ML IV PRN (08:35)
[2023-11-21] MEDS: GLUCERNA 1.2 1,000 ML BOTTLE NG PRN (16:59)
[2023-11-22] VITALS (31 sets, daily range): BP systolic 87–140; BP diastolic 60–114; TEMP 97.7–98.9; O2SAT 94–100
[2023-11-22 04:38] LABS: BASOPHILS # (AUTO) 0.1 K/uL (0.0-0.2); BASOPHILS % (AUTO) 0.8 % (0.0-2.0); EOSINOPHILS # (AUTO) 0.4 K/uL (0.0-0.7); EOSINOPHILS % (AUTO) 5.3 % (0.0-6.0); HEMATOCRIT 28 % (39-51); HEMOGLOBIN 8.7 g/dL (13.5-17.5); LYMPHOCYTES # (AUTO) 2.1 K/uL (0.8-4.8); LYMPHOCYTES % (AUTO) 29.9 % (20.0-44.0); MEAN CORPUSCULAR HEMOGLOBIN 25 PG (26.0-33.0); MEAN CORPUSCULAR HGB CONC 31 g/dl (31.0-36.0); MEAN CORPUSCULAR VOLUME 81 fL (80-96); MONOCYTES # (AUTO) 0.8 K/uL (0.1-1.30); MONOCYTES % (AUTO) 11.7 % (2.0-12.0); NEUTROPHILS # (AUTO) 3.7 K/uL (1.8-8.9); NEUTROPHILS % (AUTO) 52.3 % (43.0-81.0); PLATELET COUNT (AUTO) 237 K/uL (150-450); RED BLOOD CELL COUNT(AUTO) 3.45 MIL/uL (4.5-6.0); RED CELL DISTRIBUTION WIDTH 22.6 % (11.5-15.0); WHITE BLOOD COUNT (AUTO) 7.1 K/uL (4.3-11.0)
[2023-11-22 04:51] LABS: CALCIUM, SERUM 8.7 mg/dL (8.5-10.1); CARBON DIOXIDE 26 mmol/L (21-32); CHLORIDE 105 mmol/L (98-107); CREATININE 1.1 mg/dL (0.6-1.3); GLUCOSE 109 mg/dL (74-106); POTASSIUM 4.2 mmol/L (3.5-5.1); SODIUM SERUM 140 mmol/L (136-145); UREA NITROGEN, BLOOD 28 mg/dL (7-18)
[2023-11-22 05:12] LABS: MAGNESIUM 1.8 mg/dL (1.8-2.4); PHOSPHORUS 3.9 mg/dL (2.5-4.9)
[2023-11-22] MEDS: MIDODRINE HCL (5MG) 5 MG TABLET GT PRN (09:10)
[2023-11-22] MEDS ORDERED: VANCOMYCIN 1 GM in IV D5W 250ml IV SCH (14:00)
[2023-11-22] MEDS: VANCOMYCIN 750 MG in IV D5W 250 ML IV SCH (14:09)
[2023-11-22] MEDS: PANTOPRAZOLE 40 MG/PACK PACK GT SCH (20:52)
[2023-11-23] VITALS (74 sets, daily range): BP systolic 66–128; BP diastolic 48–100; TEMP 97.7–98.6; O2SAT 87–100
[2023-11-23 04:48] LABS: BASOPHILS % (AUTO) 0.7 % (0.0-2.0); EOSINOPHILS # (AUTO) 0.7 K/uL (0.0-0.7); EOSINOPHILS % (AUTO) 11.8 % (0.0-6.0); HEMATOCRIT 27 % (39-51); HEMOGLOBIN 8.4 g/dL (13.5-17.5); LYMPHOCYTES # (AUTO) 1.7 K/uL (0.8-4.8); LYMPHOCYTES % (AUTO) 29.5 % (20.0-44.0); MEAN CORPUSCULAR HEMOGLOBIN 25 PG (26.0-33.0); MEAN CORPUSCULAR HGB CONC 31 g/dl (31.0-36.0); MEAN CORPUSCULAR VOLUME 81 fL (80-96); MONOCYTES # (AUTO) 0.8 K/uL (0.1-1.30); NEUTROPHILS # (AUTO) 2.5 K/uL (1.8-8.9); PLATELET COUNT (AUTO) 224 K/uL (150-450); RED BLOOD CELL COUNT(AUTO) 3.32 MIL/uL (4.5-6.0); WHITE BLOOD COUNT (AUTO) 5.7 K/uL (4.3-11.0)
[2023-11-23 05:09] LABS: CARBON DIOXIDE 26 mmol/L (21-32)
[2023-11-23 05:13] LABS: CALCIUM, SERUM 9.1 mg/dL (8.5-10.1); CHLORIDE 105 mmol/L (98-107); CREATININE 1.1 mg/dL (0.6-1.3); GLUCOSE 104 mg/dL (74-106); POTASSIUM 4.3 mmol/L (3.5-5.1); SODIUM SERUM 139 mmol/L (136-145); UREA NITROGEN, BLOOD 28 mg/dL (7-18)
[2023-11-23 06:25] LABS: PHOSPHORUS 3.8 mg/dL (2.5-4.9)
[2023-11-23 06:26] LABS: MAGNESIUM 1.8 mg/dL (1.8-2.4)
[2023-11-23] MEDS: clonazePAM 0.5 MG TABLET GT PRN (20:32)
[2023-11-23] MEDS: MIDODRINE HCL (5MG) 5 MG TABLET GT SCH (21:20)
[2023-11-24] VITALS (35 sets, daily range): BP systolic 96–158; BP diastolic 50–137; TEMP 98.2–98.5; O2SAT 92–100
[2023-11-24 04:54] LABS: BASOPHILS % (AUTO) 0.4 % (0.0-2.0); EOSINOPHILS # (AUTO) 0.6 K/uL (0.0-0.7); EOSINOPHILS % (AUTO) 8.2 % (0.0-6.0); HEMATOCRIT 28 % (39-51); HEMOGLOBIN 8.5 g/dL (13.5-17.5); LYMPHOCYTES # (AUTO) 1.8 K/uL (0.8-4.8); LYMPHOCYTES % (AUTO) 24.1 % (20.0-44.0); MEAN CORPUSCULAR HEMOGLOBIN 25 PG (26.0-33.0); MEAN CORPUSCULAR HGB CONC 31 g/dl (31.0-36.0); MEAN CORPUSCULAR VOLUME 81 fL (80-96); MONOCYTES % (AUTO) 13.7 % (2.0-12.0); NEUTROPHILS % (AUTO) 53.6 % (43.0-81.0); PLATELET COUNT (AUTO) 221 K/uL (150-450); RED BLOOD CELL COUNT(AUTO) 3.38 MIL/uL (4.5-6.0); RED CELL DISTRIBUTION WIDTH 22.5 % (11.5-15.0); WHITE BLOOD COUNT (AUTO) 7.4 K/uL (4.3-11.0)
[2023-11-24 05:20] LABS: CALCIUM, SERUM 9.2 mg/dL (8.5-10.1); CARBON DIOXIDE 30 mmol/L (21-32); CHLORIDE 106 mmol/L (98-107); CREATININE 1.1 mg/dL (0.6-1.3); GLUCOSE 102 mg/dL (74-106); MAGNESIUM 1.8 mg/dL (1.8-2.4); PHOSPHORUS 3.6 mg/dL (2.5-4.9); POTASSIUM 4.9 mmol/L (3.5-5.1); SODIUM SERUM 140 mmol/L (136-145); UREA NITROGEN, BLOOD 31 mg/dL (7-18)
[2023-11-24] MEDS: NYSTATIN/TRIAMCIN CREAM 15 GM TUBE TP SCH (12:11)
[2023-11-25] VITALS (11 sets, daily range): BP systolic 112–136; BP diastolic 68–82; TEMP 97–98.3; O2SAT 96–100
[2023-11-25 04:08] LABS: BASOPHILS % (AUTO) 0.5 % (0.0-2.0); EOSINOPHILS # (AUTO) 0.9 K/uL (0.0-0.7); EOSINOPHILS % (AUTO) 12.7 % (0.0-6.0); HEMATOCRIT 26 % (39-51); HEMOGLOBIN 8.2 g/dL (13.5-17.5); LYMPHOCYTES # (AUTO) 2.6 K/uL (0.8-4.8); LYMPHOCYTES % (AUTO) 36.8 % (20.0-44.0); MEAN CORPUSCULAR HEMOGLOBIN 25 PG (26.0-33.0); MEAN CORPUSCULAR HGB CONC 31 g/dl (31.0-36.0); MEAN CORPUSCULAR VOLUME 81 fL (80-96); MONOCYTES # (AUTO) 1.1 K/uL (0.1-1.30); MONOCYTES % (AUTO) 15.1 % (2.0-12.0); NEUTROPHILS # (AUTO) 2.5 K/uL (1.8-8.9); NEUTROPHILS % (AUTO) 34.9 % (43.0-81.0); PLATELET COUNT (AUTO) 219 K/uL (150-450); RED BLOOD CELL COUNT(AUTO) 3.24 MIL/uL (4.5-6.0); RED CELL DISTRIBUTION WIDTH 22.5 % (11.5-15.0); WHITE BLOOD COUNT (AUTO) 7.1 K/uL (4.3-11.0)
[2023-11-25 04:22] LABS: CREATININE 1.1 mg/dL (0.6-1.3); MAGNESIUM 1.8 mg/dL (1.8-2.4); PHOSPHORUS 3.5 mg/dL (2.5-4.9); POTASSIUM 5.1 mmol/L (3.5-5.1)
[2023-11-25] MEDS: HYDROCODONE/APAP 5/325MG TABLET GT PRN (18:07)
[2023-11-26] VITALS: BP 121/82; TEMP 98.3; O2SAT 98
[2023-11-26 04:00] VITALS: BP 119/76; TEMP 98; O2SAT 98
[2023-11-26 08:00] VITALS: BP 100/60; TEMP 97.3; O2SAT 98
[2023-11-26] MEDS ORDERED: CEFE2FRO IV (09:06)
[2023-11-26] MEDS ORDERED: FERR300L GT (09:06)
[2023-11-26] MEDS ORDERED: VANC1FRO2 IV (09:06)
[2023-11-26] MEDS ORDERED: NUT.237L45 NG (09:06)
[2023-11-26 12:00] VITALS: BP 111/74; TEMP 97.7; O2SAT 98
[2023-11-26 16:00] VITALS: BP 120/69; TEMP 98.1; O2SAT 98
[2023-11-26 20:00] VITALS: BP 106/75; TEMP 97.7; O2SAT 99
[2023-11-27] VITALS (7 sets, daily range): BP systolic 96–153; BP diastolic 66–90; TEMP 97.7–98.1; O2SAT 98–100
[2023-11-27] MEDS: ACETAMINOPHEN 650 MG/20.3 ML UDC GT PRN (14:01)
[2023-11-27] MEDS: AMOX/CLAVULANATE 875 MG TABLET PO SCH (16:36)
[2023-11-27] MEDS ORDERED: AMPICILLIN /SULBACTAM 3 G in IV NS 0.9% 50 ML IJ SCH (17:00)
[2023-11-27] MEDS ORDERED: PIPERACILLIN /TAZOBACTAM 3.375 G in IV D5W 100 ML IV SCH (17:00)
[2023-11-28] VITALS (8 sets, daily range): BP systolic 70–136; BP diastolic 53–94; TEMP 97.1–98.2; O2SAT 96–100
[2023-11-28] MEDS: MIDODRINE HCL (5MG) 5 MG TABLET GT SCH (13:58)
[2023-11-29] VITALS: BP 142/98; TEMP 97.7; O2SAT 100
[2023-11-29 04:00] VITALS: BP 122/76; TEMP 97.2; O2SAT 96
[2023-11-29 08:00] VITALS: BP 152/89; TEMP 97.7; O2SAT 98
[2023-11-29 12:00] VITALS: BP 106/74; TEMP 97.3; O2SAT 100
[2023-11-29 16:00] VITALS: BP 110/83; TEMP 98.4; O2SAT 100
[2023-11-29 20:00] VITALS: BP 118/81; TEMP 96.8; O2SAT 100
[2023-11-30] VITALS: BP 118/72; TEMP 97.1; O2SAT 100
[2023-11-30 04:00] VITALS: BP 133/80; TEMP 97.5; O2SAT 98
[2023-11-30 08:00] VITALS: BP 124/92; TEMP 98.6; O2SAT 100
[2023-11-30 12:00] VITALS: BP 97/72; TEMP 97.3; O2SAT 100
[2023-11-30] MEDS ORDERED: PANT40SU2 GT (12:11)
[2023-11-30] MEDS ORDERED: AMOX1TAB16 PO (12:11)
[2023-11-30] MEDS ORDERED: MIDO5TAB4 GT (12:11)
[2023-11-30 16:00] VITALS: BP 116/99; TEMP 97.7; O2SAT 100
[2023-11-30 20:00] VITALS: BP 113/72; TEMP 97.7; O2SAT 100
[2023-12-01] VITALS: BP 124/80; TEMP 97.7; O2SAT 100
[2023-12-01 04:00] VITALS: BP 102/57; TEMP 97.7; O2SAT 100
[2023-12-01 07:18] LABS: BASOPHILS # (AUTO) 0.1 K/uL (0.0-0.2); BASOPHILS % (AUTO) 0.9 % (0.0-2.0); EOSINOPHILS # (AUTO) 1.2 K/uL (0.0-0.7); HEMATOCRIT 32 % (39-51); HEMOGLOBIN 9.9 g/dL (13.5-17.5); LYMPHOCYTES # (AUTO) 3.9 K/uL (0.8-4.8); LYMPHOCYTES % (AUTO) 41.6 % (20.0-44.0); MEAN CORPUSCULAR HEMOGLOBIN 26 PG (26.0-33.0); MEAN CORPUSCULAR HGB CONC 32 g/dl (31.0-36.0); MEAN CORPUSCULAR VOLUME 82 fL (80-96); MONOCYTES # (AUTO) 1.3 K/uL (0.1-1.30); MONOCYTES % (AUTO) 13.5 % (2.0-12.0); NEUTROPHILS # (AUTO) 2.9 K/uL (1.8-8.9); PLATELET COUNT (AUTO) 172 K/uL (150-450); RED BLOOD CELL COUNT(AUTO) 3.87 MIL/uL (4.5-6.0); RED CELL DISTRIBUTION WIDTH 22.9 % (11.5-15.0); WHITE BLOOD COUNT (AUTO) 9.3 K/uL (4.3-11.0)
[2023-12-01 08:00] VITALS: BP 97/78; TEMP 98.4; O2SAT 95
[2023-12-01 08:03] LABS: CALCIUM, SERUM 9.1 mg/dL (8.5-10.1); CARBON DIOXIDE 28 mmol/L (21-32); CHLORIDE 103 mmol/L (98-107); CREATININE 1.4 mg/dL (0.6-1.3); GLUCOSE 103 mg/dL (74-106); MAGNESIUM 2.5 mg/dL (1.8-2.4); PHOSPHORUS 4.3 mg/dL (2.5-4.9); SODIUM SERUM 136 mmol/L (136-145); UREA NITROGEN, BLOOD 46 mg/dL (7-18)
[2023-12-01 08:13] LABS: POTASSIUM 6.5 mmol/L (3.5-5.1)
[2023-12-01 09:49] LABS: ALBUMIN 1.9 g/dL (3.4-5.0); BILIRUBIN,DIRECT 0.1 mg/dL (0.0-0.2); BILIRUBIN,TOTAL 0.3 mg/dL (0.2-1.0); TOTAL PROTEIN, SERUM 7.7 g/dL (6.4-8.2)
[2023-12-01 12:00] VITALS: BP 107/80; TEMP 98.6; O2SAT 98
[2023-12-01 12:43] LABS: BILIRUBIN,TOTAL 0.3 mg/dL (0.2-1.0); CALCIUM, SERUM 9.2 mg/dL (8.5-10.1); CREATININE 1.2 mg/dL (0.6-1.3); TOTAL PROTEIN, SERUM 7.4 g/dL (6.4-8.2)
[2023-12-01 12:48] LABS: POTASSIUM 6.3 mmol/L (3.5-5.1)
[2023-12-01] MEDS: GABAPENTIN 100 MG CAPSULE PEG SCH (13:16)
[2023-12-01] MEDS: DEXTROSE 50%-WATER 50 ML DISP.SYRIN IVP STA (14:59)
[2023-12-01] MEDS: INSULIN LISPRO/ASPART 100 UNIT/ML CARTRIDGE SQ STA (15:00)
[2023-12-01] MEDS: SODIUM POLYSTYRENE SULF. PWD 15 GM UDC PO STA (15:00)
[2023-12-01 16:00] VITALS: BP 118/72; TEMP 98.6; O2SAT 98
[2023-12-01 17:02] LABS: THYROID STIMULATING HORMONE 0.784 uIU/mL (0.358-3.74)
[2023-12-01 18:45] LABS: CALCIUM, SERUM 9.4 mg/dL (8.5-10.1); CARBON DIOXIDE 30 mmol/L (21-32); CHLORIDE 104 mmol/L (98-107); CREATININE 1.4 mg/dL (0.6-1.3); POTASSIUM 5.7 mmol/L (3.5-5.1); SODIUM SERUM 138 mmol/L (136-145); UREA NITROGEN, BLOOD 47 mg/dL (7-18)
[2023-12-01 18:51] LABS: GLUCOSE 40 mg/dL (74-106)
[2023-12-01] MEDS: DEXTROSE 50%-WATER 50 ML DISP.SYRIN IVP ONE (19:14)
[2023-12-01] MEDS ORDERED: DEXTROSE 50%-WATER 50 ML DISP.SYRIN IVP ONE (19:30)
[2023-12-01 20:00] VITALS: BP 97/71; TEMP 97.6; O2SAT 100
[2023-12-02] VITALS: BP 102/71; TEMP 97.7; O2SAT 97
[2023-12-02 04:00] VITALS: BP 125/66; TEMP 98.4; O2SAT 96
[2023-12-02] MEDS ORDERED: IV NS 0.9% 1,000 ML IV PRN (07:00)
[2023-12-02 07:31] LABS: BASOPHILS # (AUTO) 0.1 K/uL (0.0-0.2); BASOPHILS % (AUTO) 0.8 % (0.0-2.0); EOSINOPHILS # (AUTO) 1.2 K/uL (0.0-0.7); EOSINOPHILS % (AUTO) 14.3 % (0.0-6.0); HEMATOCRIT 32 % (39-51); HEMOGLOBIN 9.9 g/dL (13.5-17.5); LYMPHOCYTES # (AUTO) 3.8 K/uL (0.8-4.8); LYMPHOCYTES % (AUTO) 46.1 % (20.0-44.0); MEAN CORPUSCULAR HEMOGLOBIN 26 PG (26.0-33.0); MEAN CORPUSCULAR HGB CONC 31 g/dl (31.0-36.0); MEAN CORPUSCULAR VOLUME 82 fL (80-96); MONOCYTES # (AUTO) 1.4 K/uL (0.1-1.30); MONOCYTES % (AUTO) 16.9 % (2.0-12.0); NEUTROPHILS # (AUTO) 1.8 K/uL (1.8-8.9); NEUTROPHILS % (AUTO) 21.9 % (43.0-81.0); PLATELET COUNT (AUTO) 160 K/uL (150-450); RED BLOOD CELL COUNT(AUTO) 3.88 MIL/uL (4.5-6.0); RED CELL DISTRIBUTION WIDTH 23.8 % (11.5-15.0); WHITE BLOOD COUNT (AUTO) 8.3 K/uL (4.3-11.0)
[2023-12-02 08:00] VITALS: BP 101/84; TEMP 97.6; O2SAT 94
[2023-12-02 08:51] LABS: CALCIUM, SERUM 9.3 mg/dL (8.5-10.1); CARBON DIOXIDE 30 mmol/L (21-32); CHLORIDE 104 mmol/L (98-107); CREATININE 1.3 mg/dL (0.6-1.3); GLUCOSE 86 mg/dL (74-106); MAGNESIUM 2.7 mg/dL (1.8-2.4); PHOSPHORUS 3.9 mg/dL (2.5-4.9); POTASSIUM 5.6 mmol/L (3.5-5.1); SODIUM SERUM 138 mmol/L (136-145); UREA NITROGEN, BLOOD 46 mg/dL (7-18)
[2023-12-02 12:00] VITALS: BP 107/75; TEMP 97.6; O2SAT 99
[2023-12-02] MEDS: SODIUM POLYSTYRENE SULF. PWD 15 GM UDC PO ONE ×2 (12:07→13:04)
[2023-12-02 12:46] VITALS: BP 107/75
[2023-12-03 00:06] LABS: FOLIC ACID 16.4 ng/mL (>3.0)
== END 2023-12-02 16:22 | DRG 870 ==
LOC: ER 16:54 → TRANSITION 22:34 → ICU 11-20 08:10 → TELE1 11-25 05:28
PROVIDERS: ADMIT Nurse Practitioner Acute Care; ATTEND Internal Medicine
PROC: 5A1955Z Respiratory Ventilation, Greater than 96 Consecutive Hours (ICD-10-PCS; principal; 2023-11-19)
PROC: 30233N1 Transfusion of Nonautologous Red Blood Cells into Peripheral Vein, Percutaneous Approach (ICD-10-PCS; 2023-11-19)
PROC: 0DB98ZX Excision of Duodenum, Via Natural or Artificial Opening Endoscopic, Diagnostic (ICD-10-PCS; 2023-11-20)
PROC: 05HC33Z Insertion of Infusion Device into Left Basilic Vein, Percutaneous Approach (ICD-10-PCS; 2023-11-20)
DX: A41.9 Sepsis, unspecified organism (principal); J15.69 Pneumonia due to other Gram-negative bacteria; J96.21 Acute and chronic respiratory failure with hypoxia; R65.21 Severe sepsis with septic shock; E43 Unspecified severe protein-calorie malnutrition; G92.8 Other toxic encephalopathy; Z99.11 Dependence on respirator [ventilator] status; D68.59 Other primary thrombophilia; R64 Cachexia; N39.0 Urinary tract infection, site not specified; J95.851 Ventilator associated pneumonia; I48.92 Unspecified atrial flutter; Z20.822 Contact with and (suspected) exposure to COVID-19; I48.91 Unspecified atrial fibrillation; R13.10 Dysphagia, unspecified; Z93.0 Tracheostomy status; Z93.1 Gastrostomy status; Z86.74 Personal history of sudden cardiac arrest; Z66 Do not resuscitate; I12.9 Hypertensive chronic kidney disease with stage 1 through stage 4 chronic kidney disease, or unspecified chronic kidney disease; N18.30 Chronic kidney disease, stage 3 unspecified; Z79.01 Long term (current) use of anticoagulants; Z79.51 Long term (current) use of inhaled steroids; Z79.899 Other long term (current) drug therapy; D64.9 Anemia, unspecified; Z86.73 Personal history of transient ischemic attack (TIA), and cerebral infarction without residual deficits; I48.0 Paroxysmal atrial fibrillation; E78.5 Hyperlipidemia, unspecified; K21.9 Gastro-esophageal reflux disease without esophagitis; Z74.09 Other reduced mobility; E88.09 Other disorders of plasma-protein metabolism, not elsewhere classified; N40.0 Benign prostatic hyperplasia without lower urinary tract symptoms; Y84.8 Other medical procedures as the cause of abnormal reaction of the patient, or of later complication, without mention of misadventure at the time of the procedure; Y92.9 Unspecified place or not applicable; E87.5 Hyperkalemia; L85.3 Xerosis cutis; L89.156 Pressure-induced deep tissue damage of sacral region; Y95 Nosocomial condition; K57.90 Diverticulosis of intestine, part unspecified, without perforation or abscess without bleeding; I95.1 Orthostatic hypotension; K29.70 Gastritis, unspecified, without bleeding; E11.51 Type 2 diabetes mellitus with diabetic peripheral angiopathy without gangrene; E11.22 Type 2 diabetes mellitus with diabetic chronic kidney disease; G25.3 Myoclonus; I70.208 Unspecified atherosclerosis of native arteries of extremities, other extremity; D50.9 Iron deficiency anemia, unspecified
CPT/HCPCS: 31720; 36410; 36415; 36600; 71045-TC; 76770-TC; 80048-TC; 80053-TC; 80076-TC; 80202-TC; 81001; 82607-TC; 82728-TC; 82962-TC; 83540-TC; 83605-TC; 83735-TC; 83880; 83921; 84100-TC; 84439-TC; 84443-TC; 84484-TC; 85025-TC; 85027-TC; 86850-TC; 87040-TC; 87081-TC; 87086-TC; 88305-TC; 94002-TC; 94003-TC; 94760-TC; 94761-TC; 94762-TC; 94799-TC; A4223; C9113; G0378; J0295; J0692; J1815; J2270; J2405; J2543; J2704; J3370; J3371; J3490; J7030; J7040; J7050; J7060; P9016

== ENCOUNTER 2024-01-16 11:26 | Inpatient (IN) | payer MEDICARE, OTHER ==
[~2024-01-16] VITALS: Ht 175.3 cm; Wt 59.9 kg
[~2024-01-16 11:26] MED LIST changes: -ACET-868 GT; +ALPR-323 GT; -AMIN30LI66 GT; +AMOX1TAB16 PO; +APIX2.5T GT; -APIX5TAB PO; +CALC500T53 GT; +CICLOPIROX OLAMINE TP; -DEXA6TAB6 GT; -DIGO50SO2 GT; +DILT30TA14 GT; +DOCU100T2 GT; +FERR300L GT; +FERR325T24 GT; -METO25TA20 GT; -METO25TA6 GT; +METO50TA16 GT; +MIDO5TAB4 GT; -NUT.237L45 NG
[2024-01-16] MEDS ORDERED: AMIN30LI66 GT (11:48)
[2024-01-16] MEDS ORDERED: DIVA125C5 GT (11:48)
[2024-01-16] MEDS ORDERED: OLAN15TA3 GT (11:48)
[2024-01-16] MEDS ORDERED: ZINC220C6 GT (11:48)
[2024-01-16] MEDS ORDERED: COLL30OI TP (11:48)
[2024-01-16] MEDS ORDERED: ACET-868 GT (11:48)
[2024-01-16] MEDS ORDERED: FERR300L GT (11:48)
[2024-01-16] MEDS ORDERED: SERT100T GT (11:48)
[2024-01-16] MEDS ORDERED: MULT-213 GT (11:48)
[2024-01-16] MEDS ORDERED: GABA-532 GT (11:48)
[2024-01-16] MEDS ORDERED: APIX5TAB GT (11:50)
[2024-01-16 11:53] LABS: BASOPHILS % (AUTO) 0.2 % (0.0-2.0); EOSINOPHILS # (AUTO) 0.1 K/uL (0.0-0.7); LYMPHOCYTES # (AUTO) 0.7 K/uL (0.8-4.8); MEAN CORPUSCULAR VOLUME 82 fL (80-96)
[2024-01-16 11:56] LABS: EOSINOPHILS % (AUTO) 0.5 % (0.0-6.0); HEMATOCRIT 23 % (39-51); HEMOGLOBIN 7.2 g/dL (13.5-17.5); LYMPHOCYTES % (AUTO) 4.3 % (20.0-44.0); MEAN CORPUSCULAR HEMOGLOBIN 25 PG (26.0-33.0); MEAN CORPUSCULAR HGB CONC 31 g/dl (31.0-36.0); MONOCYTES % (AUTO) 6.7 % (2.0-12.0); NEUTROPHILS # (AUTO) 13.6 K/uL (1.8-8.9); NEUTROPHILS % (AUTO) 88.3 % (43.0-81.0); PLATELET COUNT (AUTO) 243 K/uL (150-450); RED BLOOD CELL COUNT(AUTO) 2.88 MIL/uL (4.5-6.0); RED CELL DISTRIBUTION WIDTH 21.6 % (11.5-15.0); WHITE BLOOD COUNT (AUTO) 15.4 K/uL (4.3-11.0)
[2024-01-16 12:11] LABS: LACTIC ACID 1.6 mmol/L (0.4-2.0)
[2024-01-16 12:15] LABS: CALCIUM, SERUM 9.9 mg/dL (8.5-10.1); CARBON DIOXIDE 33 mmol/L (21-32); CHLORIDE 104 mmol/L (98-107); CREATININE 1.3 mg/dL (0.6-1.3); GLUCOSE 152 mg/dL (74-106); POTASSIUM 5.4 mmol/L (3.5-5.1); SODIUM SERUM 138 mmol/L (136-145); UREA NITROGEN, BLOOD 53 mg/dL (7-18)
[2024-01-16 12:18] LABS: INR 1.37 (0.91-1.10); PARTIAL THROMBOPLASTIN TIME 57.3 SEC (24.3-34.3); PROTHROMBIN TIME 13.9 SECS (9.2-11.1)
[2024-01-16 12:20] LABS: ALANINE AMINOTRANSFERASE 30 U/L (12-78); ALBUMIN 1.5 g/dL (3.4-5.0); ALKALINE PHOSPHATASE 83 U/L (46-116); ASPARTATE AMINOTRANSFERASE 27 U/L (15-37); BILIRUBIN,DIRECT 0.1 mg/dL (0.0-0.2); BILIRUBIN,TOTAL 0.2 mg/dL (0.2-1.0); TOTAL PROTEIN, SERUM 7.6 g/dL (6.4-8.2)
[2024-01-16] MEDS ORDERED: VANCOMYCIN 1 GM /D5W 250 ML PB IV ONE (13:25)
[2024-01-16] MEDS ORDERED: PIPERACI/TAZO 3.375GM/D5W 50ML PB IV ONE (13:26)
[2024-01-16] MEDS: IV NS 0.9% 1,000 ML BAG IV ONE (13:27)
[2024-01-16] MEDS: PIPERACILLIN /TAZOBACTAM 3.375 G in IV D5W 50 ML IV ONE (13:27)
[2024-01-16 13:42] LABS: BAND % (MANUAL) 4 % (0.0-5.0); LYMPHOCYTES % (MANUAL) 4 % (16-48); MONOCYTES % (MANUAL) 6 % (0-11.0); NEUTROPHILS % (MANUAL) 86 (42-76)
[2024-01-16] MEDS: VANCOMYCIN 1 GM in IV D5W 250 ML IV ONE (13:42)
[2024-01-16 13:43] LABS: PLATELET ESTIMATE ADEQUATE
[2024-01-16 13:45] LABS: ANISOCYTOSIS 1+; OVALOCYTES 1+; STOMATOCYTES 1+
[2024-01-16] MEDS ORDERED: MORPHINE SULFATE INJ 4 MG/ML DISP.SYRIN ONE (13:47)
[2024-01-16] MEDS ORDERED: ONDANSETRON HCL/PF 4 MG/2 ML VIAL ONE (13:47)
[2024-01-16] MEDS: MORPHINE SULFATE INJ 2 MG/ML DISP.SYRIN IV ONE (13:48)
[2024-01-16] MEDS: ONDANSETRON HCL/PF 4 MG/2 ML VIAL IV ONE (13:48)
[2024-01-16] MEDS ORDERED: MAG HYDROX/AL HYDROX/SIMETH 30 ML UDC PO PRN (19:00)
[2024-01-16] MEDS ORDERED: MAGNESIUM HYDROXIDE 30 ML UDC PO PRN (19:00)
[2024-01-16] MEDS ORDERED: ZOLPIDEM TARTRATE 5 MG TABLET PO PRN (19:00)
[2024-01-16] MEDS ORDERED: ACETAMINOPHEN 325 MG TABLET PO PRN (19:00)
[2024-01-16 20:00] VITALS: BP 103/67; TEMP 98.6; O2SAT 95
[2024-01-16] MEDS: ZOSYN IVPB 3.375 G in IV D5W 50ml IV SCH (22:57)
[2024-01-17] VITALS (9 sets, daily range): BP systolic 83–131; BP diastolic 43–90; TEMP 97.3–98.6; O2SAT 96–100
[2024-01-17] MEDS ORDERED: MAG HYDROX/AL HYDROX/SIMETH 30 ML UDC GT PRN (08:10)
[2024-01-17] MEDS ORDERED: MAGNESIUM HYDROXIDE 30 ML UDC GT PRN (08:11)
[2024-01-17 09:35] LABS: CALCIUM, SERUM 8.4 mg/dL (8.5-10.1); CREATININE 1.3 mg/dL (0.6-1.3); MAGNESIUM 2.1 mg/dL (1.8-2.4); PHOSPHORUS 4.4 mg/dL (2.5-4.9); POTASSIUM 5.3 mmol/L (3.5-5.1)
[2024-01-17 11:13] LABS: BASOPHILS % (AUTO) 0.1 % (0.0-2.0); EOSINOPHILS # (AUTO) 0.4 K/uL (0.0-0.7); EOSINOPHILS % (AUTO) 2.1 % (0.0-6.0); LYMPHOCYTES # (AUTO) 1.5 K/uL (0.8-4.8); LYMPHOCYTES % (AUTO) 8.2 % (20.0-44.0); MEAN CORPUSCULAR HEMOGLOBIN 26 PG (26.0-33.0); MEAN CORPUSCULAR HGB CONC 31 g/dl (31.0-36.0); MEAN CORPUSCULAR VOLUME 82 fL (80-96); MONOCYTES # (AUTO) 0.8 K/uL (0.1-1.30); MONOCYTES % (AUTO) 4.6 % (2.0-12.0); NEUTROPHILS # (AUTO) 15.4 K/uL (1.8-8.9); PLATELET COUNT (AUTO) 189 K/uL (150-450); RED BLOOD CELL COUNT(AUTO) 2.25 MIL/uL (4.5-6.0); RED CELL DISTRIBUTION WIDTH 21.7 % (11.5-15.0); WHITE BLOOD COUNT (AUTO) 18.1 K/uL (4.3-11.0)
[2024-01-17 11:30] LABS: HEMOGLOBIN 5.8 g/dL (13.5-17.5)
[2024-01-17 11:31] LABS: HEMATOCRIT 19 % (39-51)
[2024-01-17] MEDS: Z GUARD REMEDY 4 OZ OINT TP PRN (11:33)
[2024-01-17] MEDS: VANCOMYCIN HCL 1.25 GM in IV D5W 250 ML IV SCH (12:18)
[2024-01-17] MEDS: PIPERACILLIN /TAZOBACTAM 3.375 G in IV D5W 100 ML IV SCH (12:22)
[2024-01-17 13:16] LABS: BAND % (MANUAL) 2 % (0.0-5.0); EOSINOPHILS % (MANUAL) 1 % (0-4); LYMPHOCYTES % (MANUAL) 8 % (16-48); MONOCYTES % (MANUAL) 5 % (0-11.0); NEUTROPHILS % (MANUAL) 82 (42-76); REACTIVE LYMPHOCYTES 1 % (0-0)
[2024-01-17 13:17] LABS: ANISOCYTOSIS 1+; HYPOCHROMASIA 1+; MYELOCYTES % 1 % (0-0); OVALOCYTES 1+; PLATELET ESTIMATE ADEQUATE
[2024-01-18] VITALS: BP_SYST 103; BP_DIAS 51; BP_DIAS 60; TEMP 97.5; TEMP 98.6; O2SAT 100; O2SAT 97
[2024-01-18] MEDS: ZOLPIDEM TARTRATE 5 MG TABLET GT PRN (00:15)
[2024-01-18] MEDS: ACETAMINOPHEN 650 MG/20.3 ML UDC GT PRN (00:38)
[2024-01-18] MEDS: AMIODARONE 150 MG/3 ML VIAL IV ONE (00:52)
[2024-01-18] MEDS: AMIODARONE 150 MG in IV D5W 100 ML IV ONE (00:59)
[2024-01-18] MEDS: AMIODARONE 450 MG in IV D5W 241 ML IV PRN (01:19)
[2024-01-18 04:00] VITALS: BP 110/56; TEMP 99; O2SAT 98
[2024-01-18 07:51] LABS: BASOPHILS % (AUTO) 0.3 % (0.0-2.0); EOSINOPHILS # (AUTO) 2.2 K/uL (0.0-0.7); EOSINOPHILS % (AUTO) 16.6 % (0.0-6.0); HEMATOCRIT 23 % (39-51); HEMOGLOBIN 7.4 g/dL (13.5-17.5); LYMPHOCYTES # (AUTO) 2.1 K/uL (0.8-4.8); LYMPHOCYTES % (AUTO) 15.7 % (20.0-44.0); MEAN CORPUSCULAR HEMOGLOBIN 27 PG (26.0-33.0); MEAN CORPUSCULAR HGB CONC 32 g/dl (31.0-36.0); MEAN CORPUSCULAR VOLUME 84 fL (80-96); MONOCYTES # (AUTO) 0.9 K/uL (0.1-1.30); MONOCYTES % (AUTO) 6.4 % (2.0-12.0); NEUTROPHILS # (AUTO) 8.1 K/uL (1.8-8.9); PLATELET COUNT (AUTO) 202 K/uL (150-450); RED BLOOD CELL COUNT(AUTO) 2.71 MIL/uL (4.5-6.0); RED CELL DISTRIBUTION WIDTH 20.3 % (11.5-15.0); WHITE BLOOD COUNT (AUTO) 13.3 K/uL (4.3-11.0)
[2024-01-18 08:00] VITALS: BP 90/67; TEMP 99.3; O2SAT 98
[2024-01-18 08:16] LABS: ALANINE AMINOTRANSFERASE 22 U/L (12-78); ALKALINE PHOSPHATASE 97 U/L (46-116); ASPARTATE AMINOTRANSFERASE 24 U/L (15-37); BILIRUBIN,TOTAL 0.3 mg/dL (0.2-1.0); CALCIUM, SERUM 8.5 mg/dL (8.5-10.1); CARBON DIOXIDE 27 mmol/L (21-32); CHLORIDE 110 mmol/L (98-107); CREATININE 1.3 mg/dL (0.6-1.3); GLUCOSE 113 mg/dL (74-106); MAGNESIUM 2.3 mg/dL (1.8-2.4); POTASSIUM 4.8 mmol/L (3.5-5.1); SODIUM SERUM 144 mmol/L (136-145); TOTAL PROTEIN, SERUM 6.7 g/dL (6.4-8.2); UREA NITROGEN, BLOOD 49 mg/dL (7-18)
[2024-01-18 08:19] LABS: ALBUMIN 1.2 g/dL (3.4-5.0)
[2024-01-18] MEDS: METOPROLOL TARTRATE 50 MG TABLET GT SCH (10:00)
[2024-01-18] MEDS: CHLORHEXIDINE GLUCONATE 15 ML UDC MM SCH (10:01)
[2024-01-18 10:06] LABS: CREATINE KINASE, TOTAL 42 U/L (39-308)
[2024-01-18] MEDS: DIVALPROEX SODIUM 125 MG CAP.SPRINK GT SCH (10:22)
[2024-01-18] MEDS: TAMSULOSIN 0.4 MG CAP.SR.24H GT SCH (10:22)
[2024-01-18] MEDS ORDERED: IPRATROPIUM NEB FS 0.5 MG/2.5 ML AMPUL.NEB NEB PRN (10:30)
[2024-01-18] MEDS ORDERED: ALBUTEROL FS 2.5 MG/3 ML VIAL.NEB NEB PRN (10:30)
[2024-01-18 12:00] VITALS: BP 94/60; TEMP 99.7; O2SAT 98
[2024-01-18] MEDS: DIGOXIN INJ 0.5 MG/2 ML AMPUL IV SCH (12:30)
[2024-01-18 13:24] LABS: TOTAL IRON BINDING CAPACITY 309 ug/dl (250-450)
[2024-01-18 13:27] LABS: FERRITIN 367 ng/mL (8-388)
[2024-01-18] MEDS: IPRATROPIUM NEB FS 0.5 MG/2.5 ML AMPUL.NEB NEB SCH (13:33)
[2024-01-18] MEDS: ALBUTEROL FS 2.5 MG/3 ML VIAL.NEB NEB SCH (13:33)
[2024-01-18 13:55] LABS: IRON, SERUM 12 ug/dl (50-175)
[2024-01-18 16:00] VITALS: BP 97/61; TEMP 99.6; O2SAT 98
[2024-01-18] MEDS: OLANZAPINE 5 MG TABLET GT SCH (17:20)
[2024-01-18 20:00] VITALS: BP 106/86; TEMP 97.6; O2SAT 99
[2024-01-18] MEDS: MIRTAZAPINE 15 MG TABLET GT SCH (21:14)
[2024-01-19] VITALS (7 sets, daily range): BP systolic 82–136; BP diastolic 57–90; TEMP 98.1–99; O2SAT 97–100
[2024-01-19 08:10] LABS: CALCIUM, SERUM 9.1 mg/dL (8.5-10.1); CREATININE 1.3 mg/dL (0.6-1.3); POTASSIUM 5.5 mmol/L (3.5-5.1)
[2024-01-19] MEDS: SERTRALINE HCL 50 MG TABLET GT SCH (09:14)
[2024-01-19] MEDS: AMIODARONE HCL 200 MG TABLET GT SCH (09:30)
[2024-01-19 11:06] LABS: PTH, INTACT 18 pg/mL (15-65)
[2024-01-19] MEDS: GLUCERNA 1.2 1,000 ML BOTTLE NG PRN (17:45)
[2024-01-19] MEDS: THERAHONEY GEL 1.5 OZ TUBE TP SCH (18:25)
[2024-01-20] VITALS: BP 129/87; TEMP 98.4; O2SAT 99
[2024-01-20 04:00] VITALS: BP 114/61; TEMP 97.3; O2SAT 98
[2024-01-20 05:10] LABS: *SPE A/G RATIO 0.4 (0.7-1.7); *SPE ALBUMIN 1.7 g/dL (2.9-4.4); *SPE ALPHA-1-GLOBULIN 0.5 g/dL (0.0-0.4); *SPE ALPHA-2-GLOBULIN 0.8 g/dL (0.4-1.0); *SPE BETA GLOBULIN 0.9 g/dL (0.7-1.3); *SPE GLOBULIN, TOTAL 4.4 g/dL (2.2-3.9); *SPE M-SPIKE Not Observed g/dL (Not Observed); *SPE PROTEIN TOTAL 6.1 g/dL (6.0-8.5); *SPEGAMMA GLOBULIN 2.1 g/dL (0.4-1.8)
[2024-01-20 07:36] LABS: BASOPHILS % (AUTO) 0.1 % (0.0-2.0); EOSINOPHILS % (AUTO) 24.6 % (0.0-6.0); HEMATOCRIT 26 % (39-51); HEMOGLOBIN 8.1 g/dL (13.5-17.5); LYMPHOCYTES # (AUTO) 1.9 K/uL (0.8-4.8); LYMPHOCYTES % (AUTO) 11.4 % (20.0-44.0); MEAN CORPUSCULAR HEMOGLOBIN 27 PG (26.0-33.0); MEAN CORPUSCULAR HGB CONC 32 g/dl (31.0-36.0); MEAN CORPUSCULAR VOLUME 84 fL (80-96); MONOCYTES # (AUTO) 0.8 K/uL (0.1-1.30); MONOCYTES % (AUTO) 5.2 % (2.0-12.0); NEUTROPHILS # (AUTO) 9.6 K/uL (1.8-8.9); NEUTROPHILS % (AUTO) 58.7 % (43.0-81.0); PLATELET COUNT (AUTO) 200 K/uL (150-450); RED BLOOD CELL COUNT(AUTO) 3.06 MIL/uL (4.5-6.0); RED CELL DISTRIBUTION WIDTH 20.6 % (11.5-15.0); WHITE BLOOD COUNT (AUTO) 16.3 K/uL (4.3-11.0)
[2024-01-20 08:00] VITALS: BP 142/88; TEMP 98.4; O2SAT 98
[2024-01-20 08:11] LABS: CALCIUM, SERUM 9.3 mg/dL (8.5-10.1); CARBON DIOXIDE 29 mmol/L (21-32); CHLORIDE 110 mmol/L (98-107); CREATININE 1.4 mg/dL (0.6-1.3); GLUCOSE 131 mg/dL (74-106); POTASSIUM 5.3 mmol/L (3.5-5.1); SODIUM SERUM 145 mmol/L (136-145); UREA NITROGEN, BLOOD 43 mg/dL (7-18)
[2024-01-20 12:00] VITALS: BP 97/61; TEMP 96.5; O2SAT 94
[2024-01-20] MEDS: VANCOMYCIN 1 GM in IV D5W 250ml IV SCH (13:28)
[2024-01-20 16:00] VITALS: BP 114/67; TEMP 97.3; O2SAT 94
[2024-01-20 16:46] LABS: BAND % (MANUAL) 4 % (0.0-5.0); EOSINOPHILS % (MANUAL) 10 % (0-4); LYMPHOCYTES % (MANUAL) 20 % (16-48); MONOCYTES % (MANUAL) 6 % (0-11.0)
[2024-01-20 16:47] LABS: NEUTROPHILS % (MANUAL) 60 (42-76); PLATELET ESTIMATE ADEQUATE
[2024-01-20 20:00] VITALS: BP 145/73; TEMP 96.8; O2SAT 98
[2024-01-21] VITALS (7 sets, daily range): BP systolic 93–113; BP diastolic 54–88; TEMP 96.8–99; O2SAT 97–100
[2024-01-21 07:34] LABS: BASOPHILS % (AUTO) 0.2 % (0.0-2.0); EOSINOPHILS # (AUTO) 3.4 K/uL (0.0-0.7); HEMATOCRIT 23 % (39-51); HEMOGLOBIN 7.2 g/dL (13.5-17.5); LYMPHOCYTES # (AUTO) 1.8 K/uL (0.8-4.8); LYMPHOCYTES % (AUTO) 13.1 % (20.0-44.0); MEAN CORPUSCULAR HEMOGLOBIN 27 PG (26.0-33.0); MEAN CORPUSCULAR HGB CONC 32 g/dl (31.0-36.0); MEAN CORPUSCULAR VOLUME 84 fL (80-96); MONOCYTES % (AUTO) 6.9 % (2.0-12.0); NEUTROPHILS # (AUTO) 7.8 K/uL (1.8-8.9); NEUTROPHILS % (AUTO) 55.8 % (43.0-81.0); PLATELET COUNT (AUTO) 182 K/uL (150-450); RED BLOOD CELL COUNT(AUTO) 2.73 MIL/uL (4.5-6.0); RED CELL DISTRIBUTION WIDTH 20.6 % (11.5-15.0)
[2024-01-21 08:26] LABS: BILIRUBIN,TOTAL 0.3 mg/dL (0.2-1.0); CALCIUM, SERUM 8.9 mg/dL (8.5-10.1); CREATININE 1.3 mg/dL (0.6-1.3); MAGNESIUM 2.1 mg/dL (1.8-2.4); PHOSPHORUS 4.4 mg/dL (2.5-4.9); POTASSIUM 5.4 mmol/L (3.5-5.1); TOTAL PROTEIN, SERUM 6.7 g/dL (6.4-8.2)
[2024-01-21 08:31] LABS: ALBUMIN 1.2 g/dL (3.4-5.0)
[2024-01-21 14:29] LABS: EOSINOPHILS % (MANUAL) 31 % (0-4); LYMPHOCYTES % (MANUAL) 12 % (16-48); MONOCYTES % (MANUAL) 3 % (0-11.0); NEUTROPHILS % (MANUAL) 54 (42-76)
[2024-01-21 14:30] LABS: ANISOCYTOSIS 1+; PLATELET ESTIMATE ADEQUATE
[2024-01-22] VITALS: BP 124/95; TEMP 98.5; O2SAT 98
[2024-01-22 04:00] VITALS: BP 95/66; TEMP 98.5; O2SAT 98
[2024-01-22 07:21] LABS: BASOPHILS % (AUTO) 0.3 % (0.0-2.0); EOSINOPHILS # (AUTO) 2.3 K/uL (0.0-0.7); EOSINOPHILS % (AUTO) 16.1 % (0.0-6.0); HEMATOCRIT 24 % (39-51); HEMOGLOBIN 7.4 g/dL (13.5-17.5); LYMPHOCYTES # (AUTO) 1.9 K/uL (0.8-4.8); LYMPHOCYTES % (AUTO) 12.9 % (20.0-44.0); MEAN CORPUSCULAR HEMOGLOBIN 26 PG (26.0-33.0); MEAN CORPUSCULAR HGB CONC 31 g/dl (31.0-36.0); MEAN CORPUSCULAR VOLUME 83 fL (80-96); MONOCYTES # (AUTO) 1.1 K/uL (0.1-1.30); MONOCYTES % (AUTO) 7.7 % (2.0-12.0); NEUTROPHILS # (AUTO) 9.2 K/uL (1.8-8.9); PLATELET COUNT (AUTO) 205 K/uL (150-450); RED BLOOD CELL COUNT(AUTO) 2.83 MIL/uL (4.5-6.0); RED CELL DISTRIBUTION WIDTH 20.4 % (11.5-15.0); WHITE BLOOD COUNT (AUTO) 14.5 K/uL (4.3-11.0)
[2024-01-22 07:39] LABS: ALANINE AMINOTRANSFERASE 16 U/L (12-78); ALKALINE PHOSPHATASE 88 U/L (46-116); ASPARTATE AMINOTRANSFERASE 16 U/L (15-37); BILIRUBIN,TOTAL 0.2 mg/dL (0.2-1.0); CALCIUM, SERUM 9.3 mg/dL (8.5-10.1); CARBON DIOXIDE 34 mmol/L (21-32); CHLORIDE 110 mmol/L (98-107); CREATININE 1.5 mg/dL (0.6-1.3); GLUCOSE 98 mg/dL (74-106); MAGNESIUM 2.1 mg/dL (1.8-2.4); PHOSPHORUS 3.9 mg/dL (2.5-4.9); POTASSIUM 5.7 mmol/L (3.5-5.1); SODIUM SERUM 147 mmol/L (136-145); TOTAL PROTEIN, SERUM 7.1 g/dL (6.4-8.2); UREA NITROGEN, BLOOD 41 mg/dL (7-18)
[2024-01-22 07:44] LABS: ALBUMIN 1.2 g/dL (3.4-5.0)
[2024-01-22 08:00] VITALS: BP 152/115; TEMP 98.2; O2SAT 98
[2024-01-22] MEDS: FUROSEMIDE 20 MG/2 ML VIAL IV ONE (08:31)
[2024-01-22] MEDS: SODIUM POLYSTYRENE SULFONATE 15 G/60 ML BOTTLE PO ONE (08:32)
[2024-01-22] MEDS: NEPRO 1,000 ML BOTTLE GT PRN (11:13)
[2024-01-22 12:00] VITALS: BP 105/72; TEMP 97.7; O2SAT 99
[2024-01-22 16:00] VITALS: BP 117/77; TEMP 98.1; O2SAT 99
[2024-01-22 16:30] LABS: CARBON DIOXIDE 30 mmol/L (21-32); CHLORIDE 110 mmol/L (98-107); CREATININE 1.5 mg/dL (0.6-1.3); GLUCOSE 132 mg/dL (74-106); POTASSIUM 5.5 mmol/L (3.5-5.1); SODIUM SERUM 148 mmol/L (136-145); UREA NITROGEN, BLOOD 42 mg/dL (7-18)
[2024-01-22 20:00] VITALS: BP 100/58; TEMP 98.2; O2SAT 99
[2024-01-23] VITALS (9 sets, daily range): BP systolic 97–125; BP diastolic 59–96; TEMP 97.9–99.1; O2SAT 97–99
[2024-01-23] MEDS: VANCOMYCIN 1 GM in IV D5W 250ml IV SCH ×2 (01:00→21:00)
[2024-01-23 07:09] LABS: BASOPHILS % (AUTO) 0.2 % (0.0-2.0); EOSINOPHILS # (AUTO) 0.5 K/uL (0.0-0.7); EOSINOPHILS % (AUTO) 3.8 % (0.0-6.0); HEMATOCRIT 24 % (39-51); HEMOGLOBIN 7.6 g/dL (13.5-17.5); LYMPHOCYTES # (AUTO) 1.9 K/uL (0.8-4.8); LYMPHOCYTES % (AUTO) 13.6 % (20.0-44.0); MEAN CORPUSCULAR HEMOGLOBIN 26 PG (26.0-33.0); MEAN CORPUSCULAR HGB CONC 32 g/dl (31.0-36.0); MEAN CORPUSCULAR VOLUME 83 fL (80-96); MONOCYTES # (AUTO) 1.3 K/uL (0.1-1.30); MONOCYTES % (AUTO) 9.4 % (2.0-12.0); NEUTROPHILS # (AUTO) 10.4 K/uL (1.8-8.9); PLATELET COUNT (AUTO) 228 K/uL (150-450); RED BLOOD CELL COUNT(AUTO) 2.92 MIL/uL (4.5-6.0); RED CELL DISTRIBUTION WIDTH 21.1 % (11.5-15.0); WHITE BLOOD COUNT (AUTO) 14.2 K/uL (4.3-11.0)
[2024-01-23 07:40] LABS: ALANINE AMINOTRANSFERASE 15 U/L (12-78); ASPARTATE AMINOTRANSFERASE 17 U/L (15-37); BILIRUBIN,TOTAL 0.3 mg/dL (0.2-1.0); CALCIUM, SERUM 9.5 mg/dL (8.5-10.1); CARBON DIOXIDE 34 mmol/L (21-32); CHLORIDE 112 mmol/L (98-107); CREATININE 1.6 mg/dL (0.6-1.3); GLUCOSE 148 mg/dL (74-106); MAGNESIUM 2.2 mg/dL (1.8-2.4); PHOSPHORUS 3.8 mg/dL (2.5-4.9); POTASSIUM 4.7 mmol/L (3.5-5.1); SODIUM SERUM 150 mmol/L (136-145); UREA NITROGEN, BLOOD 43 mg/dL (7-18)
[2024-01-23 08:15] LABS: ALKALINE PHOSPHATASE 81 U/L (46-116); TOTAL PROTEIN, SERUM 7.2 g/dL (6.4-8.2)
[2024-01-23 09:06] LABS: ALBUMIN 1.2 g/dL (3.4-5.0)
[2024-01-23] MEDS: THERAHONEY GEL 1.5 OZ TUBE TP SCH (11:00)
[2024-01-24] VITALS (7 sets, daily range): BP systolic 84–111; BP diastolic 47–70; TEMP 98.1–99.5; O2SAT 94–97
[2024-01-24 08:14] LABS: BASOPHILS % (AUTO) 0.1 % (0.0-2.0); EOSINOPHILS % (AUTO) 4.8 % (0.0-6.0); HEMATOCRIT 23 % (39-51); HEMOGLOBIN 7.4 g/dL (13.5-17.5); LYMPHOCYTES # (AUTO) 2.9 K/uL (0.8-4.8); LYMPHOCYTES % (AUTO) 13.5 % (20.0-44.0); MEAN CORPUSCULAR HEMOGLOBIN 26 PG (26.0-33.0); MEAN CORPUSCULAR HGB CONC 32 g/dl (31.0-36.0); MEAN CORPUSCULAR VOLUME 83 fL (80-96); MONOCYTES # (AUTO) 1.3 K/uL (0.1-1.30); MONOCYTES % (AUTO) 6.3 % (2.0-12.0); NEUTROPHILS % (AUTO) 75.3 % (43.0-81.0); PLATELET COUNT (AUTO) 235 K/uL (150-450); RED BLOOD CELL COUNT(AUTO) 2.79 MIL/uL (4.5-6.0); RED CELL DISTRIBUTION WIDTH 20.9 % (11.5-15.0); WHITE BLOOD COUNT (AUTO) 21.3 K/uL (4.3-11.0)
[2024-01-24 09:44] LABS: ALANINE AMINOTRANSFERASE 19 U/L (12-78); ALKALINE PHOSPHATASE 88 U/L (46-116); ASPARTATE AMINOTRANSFERASE 24 U/L (15-37); BILIRUBIN,TOTAL 0.2 mg/dL (0.2-1.0); CALCIUM, SERUM 9.5 mg/dL (8.5-10.1); CARBON DIOXIDE 31 mmol/L (21-32); CHLORIDE 110 mmol/L (98-107); CREATININE 1.7 mg/dL (0.6-1.3); GLUCOSE 135 mg/dL (74-106); MAGNESIUM 2.5 mg/dL (1.8-2.4); PHOSPHORUS 3.5 mg/dL (2.5-4.9); POTASSIUM 4.2 mmol/L (3.5-5.1); SODIUM SERUM 148 mmol/L (136-145); TOTAL PROTEIN, SERUM 7.1 g/dL (6.4-8.2); UREA NITROGEN, BLOOD 53 mg/dL (7-18)
[2024-01-24 09:50] LABS: ALBUMIN 1.1 g/dL (3.4-5.0)
[2024-01-24 12:01] LABS: ANISOCYTOSIS 1+; EOSINOPHILS % (MANUAL) 3 % (0-4); LYMPHOCYTES % (MANUAL) 14 % (16-48); MONOCYTES % (MANUAL) 4 % (0-11.0); MYELOCYTES % 1 % (0-0); NEUTROPHILS % (MANUAL) 75 (42-76); PLATELET ESTIMATE ADEQUATE
[2024-01-24 12:02] LABS: TARGET CELLS 1+
[2024-01-24 12:44] LABS: APPEARANCE,URINE SLIGHTLY CLOUDY (CLEAR); BILIRUBIN,URINE NEGATIVE (NEGATIVE); BLOOD, URINE 3+ Ery/uL (NEGATIVE); COLOR,URINE YELLOW (YELLOW); KETONES,URINE TRACE mg/dL (NEGATIVE); LEUKOCYTE ESTERASE ,URINE 2+ (NEGATIVE); NITRITE, URINE NEGATIVE (NEGATIVE); PH,URINE 6.5 (5.0-8.0); PROTEIN,URINE 2+ mg/dl (NEGATIVE); UGLUCOSE NEGATIVE (NEGATIVE); UROBILINOGEN,URINE 0.2 EU/dL (0.2)
[2024-01-24 13:08] LABS: ADD URINE CULTURE YES; BACTERIA,URINE None seen /HPF (None Seen); RBC,URINE TOO NUMEROUS TO COUN /HPF (0-2); SQUAMOUS EPITHELIAL CELL,UR Rare /HPF (None Seen)
[2024-01-24 13:10] LABS: CALCIUM OXALATE CRYSTALS,UR Few /HPF (None Seen); FINE GRANULAR CASTS,URINE Few /LPF (None Seen); URINE AMORPHOUS URATE Few /HPF (None Seen); YEAST,URINE Few /HPF (None Seen)
[2024-01-24 13:11] LABS: MUCUS,URINE Moderate /LPF (None Seen)
[2024-01-24 13:45] LABS: EOSINOPHIL,URINE None Seen
[2024-01-24] MEDS: VANCOMYCIN 750 MG in IV D5W 250 ML IV SCH (14:26)
[2024-01-25] VITALS (8 sets, daily range): BP systolic 90–146; BP diastolic 53–85; TEMP 97.9–98.8; O2SAT 94–98
[2024-01-25 07:35] LABS: BASOPHILS % (AUTO) 0.2 % (0.0-2.0); EOSINOPHILS # (AUTO) 2.6 K/uL (0.0-0.7); EOSINOPHILS % (AUTO) 13.2 % (0.0-6.0); HEMATOCRIT 24 % (39-51); HEMOGLOBIN 7.3 g/dL (13.5-17.5); LYMPHOCYTES # (AUTO) 2.6 K/uL (0.8-4.8); LYMPHOCYTES % (AUTO) 13.1 % (20.0-44.0); MEAN CORPUSCULAR HEMOGLOBIN 26 PG (26.0-33.0); MEAN CORPUSCULAR HGB CONC 31 g/dl (31.0-36.0); MEAN CORPUSCULAR VOLUME 83 fL (80-96); MONOCYTES # (AUTO) 1.1 K/uL (0.1-1.30); MONOCYTES % (AUTO) 5.5 % (2.0-12.0); NEUTROPHILS # (AUTO) 13.3 K/uL (1.8-8.9); PLATELET COUNT (AUTO) 233 K/uL (150-450); RED BLOOD CELL COUNT(AUTO) 2.82 MIL/uL (4.5-6.0); RED CELL DISTRIBUTION WIDTH 20.5 % (11.5-15.0); WHITE BLOOD COUNT (AUTO) 19.5 K/uL (4.3-11.0)
[2024-01-25 07:58] LABS: ALANINE AMINOTRANSFERASE 23 U/L (12-78); ALKALINE PHOSPHATASE 88 U/L (46-116); ASPARTATE AMINOTRANSFERASE 22 U/L (15-37); BILIRUBIN,TOTAL 0.2 mg/dL (0.2-1.0); CALCIUM, SERUM 9.6 mg/dL (8.5-10.1); CARBON DIOXIDE 32 mmol/L (21-32); CHLORIDE 111 mmol/L (98-107); CREATININE 1.8 mg/dL (0.6-1.3); GLUCOSE 126 mg/dL (74-106); MAGNESIUM 2.4 mg/dL (1.8-2.4); PHOSPHORUS 3.8 mg/dL (2.5-4.9); POTASSIUM 4.2 mmol/L (3.5-5.1); SODIUM SERUM 150 mmol/L (136-145); TOTAL PROTEIN, SERUM 6.9 g/dL (6.4-8.2); UREA NITROGEN, BLOOD 60 mg/dL (7-18)
[2024-01-25 10:14] LABS: OCCULT BLOOD STOOL POSITIVE (NEGATIVE)
[2024-01-26] VITALS (12 sets, daily range): BP systolic 90–126; BP diastolic 45–101; TEMP 97.9–99.1; O2SAT 95–96
[2024-01-26 07:28] LABS: BASOPHILS # (AUTO) 0.1 K/uL (0.0-0.2); BASOPHILS % (AUTO) 0.2 % (0.0-2.0); EOSINOPHILS # (AUTO) 3.1 K/uL (0.0-0.7); EOSINOPHILS % (AUTO) 15.4 % (0.0-6.0); HEMATOCRIT 22 % (39-51); LYMPHOCYTES # (AUTO) 2.7 K/uL (0.8-4.8); LYMPHOCYTES % (AUTO) 13.5 % (20.0-44.0); MEAN CORPUSCULAR HEMOGLOBIN 26 PG (26.0-33.0); MEAN CORPUSCULAR HGB CONC 32 g/dl (31.0-36.0); MEAN CORPUSCULAR VOLUME 82 fL (80-96); MONOCYTES # (AUTO) 1.2 K/uL (0.1-1.30); MONOCYTES % (AUTO) 6.2 % (2.0-12.0); NEUTROPHILS # (AUTO) 13.1 K/uL (1.8-8.9); NEUTROPHILS % (AUTO) 64.7 % (43.0-81.0); PLATELET COUNT (AUTO) 260 K/uL (150-450); RED BLOOD CELL COUNT(AUTO) 2.63 MIL/uL (4.5-6.0); RED CELL DISTRIBUTION WIDTH 20.2 % (11.5-15.0); WHITE BLOOD COUNT (AUTO) 20.2 K/uL (4.3-11.0)
[2024-01-26 07:35] LABS: HEMOGLOBIN 6.9 g/dL (13.5-17.5)
[2024-01-26 07:55] LABS: ALANINE AMINOTRANSFERASE 21 U/L (12-78); ALKALINE PHOSPHATASE 75 U/L (46-116); ASPARTATE AMINOTRANSFERASE 27 U/L (15-37); BILIRUBIN,TOTAL 0.2 mg/dL (0.2-1.0); CALCIUM, SERUM 9.9 mg/dL (8.5-10.1); CARBON DIOXIDE 34 mmol/L (21-32); CHLORIDE 110 mmol/L (98-107); CREATININE 1.8 mg/dL (0.6-1.3); GLUCOSE 135 mg/dL (74-106); MAGNESIUM 2.6 mg/dL (1.8-2.4); PHOSPHORUS 3.9 mg/dL (2.5-4.9); SODIUM SERUM 149 mmol/L (136-145); TOTAL PROTEIN, SERUM 6.9 g/dL (6.4-8.2); UREA NITROGEN, BLOOD 65 mg/dL (7-18)
[2024-01-26 08:22] LABS: ALBUMIN 1.1 g/dL (3.4-5.0)
[2024-01-26 08:23] LABS: BAND % (MANUAL) 2 % (0.0-5.0); EOSINOPHILS % (MANUAL) 15 % (0-4); LYMPHOCYTES % (MANUAL) 12 % (16-48); MONOCYTES % (MANUAL) 6 % (0-11.0); NEUTROPHILS % (MANUAL) 65 (42-76)
[2024-01-26 08:24] LABS: ANISOCYTOSIS 1+; HYPOCHROMASIA 1+; PLATELET ESTIMATE ADEQUATE; STOMATOCYTES 1+; TARGET CELLS 1+
[2024-01-26] MEDS: VANCOMYCIN 1 GM in IV D5W 250ml IV SCH (15:07)
[2024-01-26 15:25] LABS: HEMOGLOBIN 8.6 g/dL (13.5-17.5)
[2024-01-27] VITALS (74 sets, daily range): BP systolic 43–197; BP diastolic 35–170; TEMP 96.9–99.7; O2SAT 86–100
[2024-01-27] MEDS: IV NS 0.9% 1,000 ML IV ONE (02:28)
[2024-01-27] MEDS: ONDANSETRON HCL/PF 4 MG/2 ML VIAL IVP PRN (02:47)
[2024-01-27] MEDS ORDERED: OCTREOTIDE 100 MCG/ML VIAL ONE (03:22)
[2024-01-27] MEDS ORDERED: PANTOPRAZOLE 40 MG VIAL ONE (03:22)
[2024-01-27] MEDS: OCTREOTIDE 50 MCG in IV NS 0.9% 50 ML IJ ONE (03:27)
[2024-01-27] MEDS: PANTOPRAZOLE 80 MG in IV NS 0.9% 100 ML IV ONE (03:27)
[2024-01-27] MEDS ORDERED: NOREPINEPHRINE 4 MG/4 ML AMPUL IV ONE (03:30)
[2024-01-27] MEDS: NOREPINEPHRINE 32 MG in IV NS 0.9% 218 ML IV PRN (03:35)
[2024-01-27] MEDS: IV NS 0.9% 1,000 ML BAG IV PRN (03:43)
[2024-01-27 07:38] LABS: BASOPHILS % (AUTO) 0.1 % (0.0-2.0); EOSINOPHILS % (AUTO) 0.1 % (0.0-6.0); HEMATOCRIT 28 % (39-51); HEMOGLOBIN 8.9 g/dL (13.5-17.5); LYMPHOCYTES # (AUTO) 1.9 K/uL (0.8-4.8); LYMPHOCYTES % (AUTO) 7.2 % (20.0-44.0); MEAN CORPUSCULAR HEMOGLOBIN 27 PG (26.0-33.0); MEAN CORPUSCULAR HGB CONC 32 g/dl (31.0-36.0); MEAN CORPUSCULAR VOLUME 84 fL (80-96); MONOCYTES # (AUTO) 1.7 K/uL (0.1-1.30); MONOCYTES % (AUTO) 6.4 % (2.0-12.0); NEUTROPHILS # (AUTO) 22.4 K/uL (1.8-8.9); NEUTROPHILS % (AUTO) 86.2 % (43.0-81.0); PLATELET COUNT (AUTO) 340 K/uL (150-450); RED BLOOD CELL COUNT(AUTO) 3.34 MIL/uL (4.5-6.0); RED CELL DISTRIBUTION WIDTH 19.5 % (11.5-15.0)
[2024-01-27 08:55] LABS: ALANINE AMINOTRANSFERASE 81 U/L (12-78); ALKALINE PHOSPHATASE 80 U/L (46-116); ASPARTATE AMINOTRANSFERASE 163 U/L (15-37); BILIRUBIN,TOTAL 0.5 mg/dL (0.2-1.0); CALCIUM, SERUM 9.3 mg/dL (8.5-10.1); CARBON DIOXIDE 31 mmol/L (21-32); CHLORIDE 106 mmol/L (98-107); CREATININE 2.6 mg/dL (0.6-1.3); GLUCOSE 154 mg/dL (74-106); MAGNESIUM 2.8 mg/dL (1.8-2.4); PHOSPHORUS 6.7 mg/dL (2.5-4.9); POTASSIUM 4.6 mmol/L (3.5-5.1); SODIUM SERUM 148 mmol/L (136-145); TOTAL PROTEIN, SERUM 7.4 g/dL (6.4-8.2); UREA NITROGEN, BLOOD 76 mg/dL (7-18)
[2024-01-27 09:10] LABS: ALBUMIN 1.2 g/dL (3.4-5.0)
[2024-01-27] MEDS: PANTOPRAZOLE 40 MG VIAL IV SCH (10:51)
[2024-01-27 19:10] LABS: HEMOGLOBIN 8.5 g/dL (13.5-17.5)
[2024-01-27] MEDS: OCTREOTIDE 1,250 MCG in IV NS 0.9% 247.5 ML IV PRN (20:23)
[2024-01-28] VITALS (103 sets, daily range): BP systolic 70–154; BP diastolic 42–132; TEMP 98.3–99.5; O2SAT 83–99
[2024-01-28 05:21] LABS: HEMOGLOBIN 8.4 g/dL (13.5-17.5)
[2024-01-28 05:46] LABS: CALCIUM, SERUM 8.5 mg/dL (8.5-10.1); CARBON DIOXIDE 30 mmol/L (21-32); CHLORIDE 108 mmol/L (98-107); CREATININE 3.4 mg/dL (0.6-1.3); GLUCOSE 176 mg/dL (74-106); POTASSIUM 5.2 mmol/L (3.5-5.1); SODIUM SERUM 152 mmol/L (136-145)
[2024-01-28 05:48] LABS: UREA NITROGEN, BLOOD 111 mg/dL (7-18)
[2024-01-28 08:30] LABS: BASOPHILS # (AUTO) 0.1 K/uL (0.0-0.2); BASOPHILS % (AUTO) 0.6 % (0.0-2.0); EOSINOPHILS % (AUTO) 0.1 % (0.0-6.0); HEMATOCRIT 25 % (39-51); HEMOGLOBIN 7.8 g/dL (13.5-17.5); LYMPHOCYTES # (AUTO) 2.1 K/uL (0.8-4.8); LYMPHOCYTES % (AUTO) 9.2 % (20.0-44.0); MEAN CORPUSCULAR HEMOGLOBIN 26 PG (26.0-33.0); MEAN CORPUSCULAR HGB CONC 32 g/dl (31.0-36.0); MEAN CORPUSCULAR VOLUME 82 fL (80-96); MONOCYTES # (AUTO) 1.8 K/uL (0.1-1.30); MONOCYTES % (AUTO) 7.6 % (2.0-12.0); NEUTROPHILS # (AUTO) 19.1 K/uL (1.8-8.9); NEUTROPHILS % (AUTO) 82.5 % (43.0-81.0); PLATELET COUNT (AUTO) 410 K/uL (150-450); RED BLOOD CELL COUNT(AUTO) 2.97 MIL/uL (4.5-6.0); RED CELL DISTRIBUTION WIDTH 19.9 % (11.5-15.0); WHITE BLOOD COUNT (AUTO) 23.1 K/uL (4.3-11.0)
[2024-01-28] MEDS: IV NS 0.9% 1,000 ML IV PRN (08:45)
[2024-01-28 08:48] LABS: CALCIUM, SERUM 8.2 mg/dL (8.5-10.1); CARBON DIOXIDE 31 mmol/L (21-32); CHLORIDE 108 mmol/L (98-107); CREATININE 3.7 mg/dL (0.6-1.3); GLUCOSE 196 mg/dL (74-106); POTASSIUM 5.3 mmol/L (3.5-5.1); SODIUM SERUM 152 mmol/L (136-145)
[2024-01-28 08:49] LABS: UREA NITROGEN, BLOOD 116 mg/dL (7-18)
[2024-01-28 08:54] LABS: ALANINE AMINOTRANSFERASE 188 U/L (12-78); ALKALINE PHOSPHATASE 84 U/L (46-116); ASPARTATE AMINOTRANSFERASE 202 U/L (15-37); BILIRUBIN,TOTAL 0.5 mg/dL (0.2-1.0); TOTAL PROTEIN, SERUM 6.9 g/dL (6.4-8.2)
[2024-01-28 12:21] LABS: APPEARANCE,URINE TURBID (CLEAR); BILIRUBIN,URINE 1+ (NEGATIVE); BLOOD, URINE 3+ Ery/uL (NEGATIVE); COLOR,URINE DARK YELLOW (YELLOW); KETONES,URINE TRACE mg/dL (NEGATIVE); LEUKOCYTE ESTERASE ,URINE 3+ (NEGATIVE); NITRITE, URINE NEGATIVE (NEGATIVE); PH,URINE 5.5 (5.0-8.0); PROTEIN,URINE 2+ mg/dl (NEGATIVE); UGLUCOSE NEGATIVE (NEGATIVE)
[2024-01-28 12:24] LABS: RBC,URINE 21-50 /HPF (0-2); SQUAMOUS EPITHELIAL CELL,UR Moderate /HPF (None Seen)
[2024-01-28 12:25] LABS: ADD URINE CULTURE YES; BACTERIA,URINE Moderate /HPF (None Seen); EOSINOPHIL,URINE None Seen; WBC,URINE TOO NUMEROUS TO COUN /HPF (0-3)
[2024-01-28 12:45] LABS: CREATININE, URINE 61.7 MG/DL (30.0-125.0); URINE TOTAL PROTEIN 446.4 mg/dL (0-11.9)
[2024-01-28 15:09] LABS: ANISOCYTOSIS 1+; BAND % (MANUAL) 3 % (0.0-5.0); LYMPHOCYTES % (MANUAL) 8 % (16-48); MONOCYTES % (MANUAL) 4 % (0-11.0); NEUTROPHILS % (MANUAL) 85 (42-76); PLATELET ESTIMATE ADEQUATE; TARGET CELLS 1+
[2024-01-28] MEDS: METOCLOPRAMIDE HCL 10 MG/2 ML VIAL IV SCH (16:55)
[2024-01-28] MEDS: LORAZEPAM INJ 2 MG/ML VIAL IV PRN (16:55)
[2024-01-28 18:43] LABS: HEMOGLOBIN 6.8 g/dL (13.5-17.5)
[2024-01-28 21:22] LABS: HEMOGLOBIN 7.1 g/dL (13.5-17.5)
[2024-01-29] VITALS (91 sets, daily range): BP systolic 61–171; BP diastolic 40–105; TEMP 97–99; O2SAT 88–100
[2024-01-29] MEDS: DILTIAZEM HCL 50 MG IV IV ONE (05:18)
[2024-01-29] MEDS: PHENYLEPHRINE 100 MG in IV NS 0.9% 240 ML IV PRN (08:04)
[2024-01-29] MEDS ORDERED: AMIODARONE 450 MG in IV D5W 250 ML IV PRN (09:00)
[2024-01-29] MEDS: AMIODARONE 150 MG in IV D5W 100 ML IV ONE (09:01)
[2024-01-29] MEDS: AMIODARONE 450 MG in IV D5W 241 ML IV PRN (09:20)
[2024-01-29 10:42] LABS: ALANINE AMINOTRANSFERASE 173 U/L (12-78); ALKALINE PHOSPHATASE 80 U/L (46-116); ASPARTATE AMINOTRANSFERASE 141 U/L (15-37); BILIRUBIN,TOTAL 0.6 mg/dL (0.2-1.0); CALCIUM, SERUM 7.3 mg/dL (8.5-10.1); CARBON DIOXIDE 26 mmol/L (21-32); CHLORIDE 112 mmol/L (98-107); CREATININE 4.1 mg/dL (0.6-1.3); GLUCOSE 189 mg/dL (74-106); MAGNESIUM 2.7 mg/dL (1.8-2.4); PHOSPHORUS 6.4 mg/dL (2.5-4.9); POTASSIUM 4.2 mmol/L (3.5-5.1); TOTAL PROTEIN, SERUM 6.1 g/dL (6.4-8.2)
[2024-01-29 11:01] LABS: SODIUM SERUM 156 mmol/L (136-145); UREA NITROGEN, BLOOD 118 mg/dL (7-18)
[2024-01-29 11:02] LABS: ALBUMIN 0.8 g/dL (3.4-5.0)
[2024-01-29 11:47] LABS: BASOPHILS % (AUTO) 0.2 % (0.0-2.0); EOSINOPHILS # (AUTO) 0.1 K/uL (0.0-0.7); EOSINOPHILS % (AUTO) 0.7 % (0.0-6.0); LYMPHOCYTES # (AUTO) 1.9 K/uL (0.8-4.8); LYMPHOCYTES % (AUTO) 10.4 % (20.0-44.0); MEAN CORPUSCULAR HEMOGLOBIN 26 PG (26.0-33.0); MEAN CORPUSCULAR HGB CONC 32 g/dl (31.0-36.0); MEAN CORPUSCULAR VOLUME 83 fL (80-96); MONOCYTES # (AUTO) 0.9 K/uL (0.1-1.30); MONOCYTES % (AUTO) 4.8 % (2.0-12.0); NEUTROPHILS # (AUTO) 15.1 K/uL (1.8-8.9); NEUTROPHILS % (AUTO) 83.9 % (43.0-81.0); PLATELET COUNT (AUTO) 278 K/uL (150-450); RED BLOOD CELL COUNT(AUTO) 2.42 MIL/uL (4.5-6.0)
[2024-01-29 11:52] LABS: HEMATOCRIT 20 % (39-51)
[2024-01-29 11:55] LABS: HEMOGLOBIN 6.3 g/dL (13.5-17.5)
[2024-01-29] MEDS: NOREPINEPHRINE 8 MG in IV D5W 242 ML IV PRN (14:59)
[2024-01-29 21:26] LABS: HEMOGLOBIN 11.7 g/dL (13.5-17.5)
[2024-01-30] VITALS (95 sets, daily range): BP systolic 66–164; BP diastolic 40–137; TEMP 97.4–98; O2SAT 91–100
[2024-01-30 05:04] LABS: BASOPHILS % (AUTO) 0.2 % (0.0-2.0); EOSINOPHILS # (AUTO) 0.4 K/uL (0.0-0.7); HEMATOCRIT 32 % (39-51); HEMOGLOBIN 10.3 g/dL (13.5-17.5); LYMPHOCYTES # (AUTO) 1.3 K/uL (0.8-4.8); LYMPHOCYTES % (AUTO) 7.2 % (20.0-44.0); MEAN CORPUSCULAR HEMOGLOBIN 28 PG (26.0-33.0); MEAN CORPUSCULAR HGB CONC 33 g/dl (31.0-36.0); MEAN CORPUSCULAR VOLUME 85 fL (80-96); MONOCYTES # (AUTO) 0.8 K/uL (0.1-1.30); MONOCYTES % (AUTO) 4.3 % (2.0-12.0); NEUTROPHILS # (AUTO) 15.9 K/uL (1.8-8.9); NEUTROPHILS % (AUTO) 86.3 % (43.0-81.0); PLATELET COUNT (AUTO) 252 K/uL (150-450); RED BLOOD CELL COUNT(AUTO) 3.76 MIL/uL (4.5-6.0); RED CELL DISTRIBUTION WIDTH 18.1 % (11.5-15.0); WHITE BLOOD COUNT (AUTO) 18.4 K/uL (4.3-11.0)
[2024-01-30 05:14] LABS: CALCIUM, SERUM 6.6 mg/dL (8.5-10.1); CARBON DIOXIDE 23 mmol/L (21-32); CHLORIDE 113 mmol/L (98-107); CREATININE 3.4 mg/dL (0.6-1.3); GLUCOSE 221 mg/dL (74-106); POTASSIUM 3.1 mmol/L (3.5-5.1); SODIUM SERUM 153 mmol/L (136-145)
[2024-01-30 05:15] LABS: UREA NITROGEN, BLOOD 100 mg/dL (7-18)
[2024-01-30 05:21] LABS: ALANINE AMINOTRANSFERASE 129 U/L (12-78); ALKALINE PHOSPHATASE 75 U/L (46-116); ASPARTATE AMINOTRANSFERASE 79 U/L (15-37); BILIRUBIN,TOTAL 0.5 mg/dL (0.2-1.0); TOTAL PROTEIN, SERUM 5.6 g/dL (6.4-8.2)
[2024-01-30 05:27] LABS: ALBUMIN 0.7 g/dL (3.4-5.0)
[2024-01-30] MEDS: NEPRO 1,000 ML BOTTLE GT PRN (07:34)
[2024-01-30] MEDS: METOCLOPRAMIDE HCL 10 MG/2 ML VIAL IV SCH (08:21)
[2024-01-30] MEDS: HYDROCORTISONE SOD SUCCINATE 100 MG/2 ML VIAL IV SCH (08:25)
[2024-01-30] MEDS ORDERED: IV 1/2NS 1000 ML 1,000 ML IV PRN (10:00)
[2024-01-30] MEDS: IV 1/2NS 1000 ML 1,000 ML IV SCH (10:07)
[2024-01-30] MEDS: POTASSIUM CL. PREMIX PERIPHER. 50 ML IV SCH (10:09)
[2024-01-30] MEDS: VANCOMYCIN 750 MG in IV D5W 250 ML IV SCH (13:58)
[2024-01-30 18:31] LABS: HEMOGLOBIN 12.3 g/dL (13.5-17.5)
[2024-01-30] MEDS: AMIODARONE HCL 200 MG TABLET PO SCH (20:12)
[2024-01-30 22:02] LABS: ABG OXYGEN SATURATION 91.1 % (92.0-98.5); ABG PCO2 35.1 mmHg (35.0-45.0); ABG PH 7.347 (7.350-7.450); ABG PO2 65.1 mmHg (75.0-100.0); ABG TOTAL HEMOGLOBIN 12.7 G/dL (13.5-18.0); AaDO2 179.7 mmHg; COHb 0.5 % (0.5-1.5); MetHb 0.6 % (0.0-1.5); O2Hb 90.1 % (94.0-97.0); SITE, ABG Left Radial
[2024-01-31] VITALS (84 sets, daily range): BP systolic 73–163; BP diastolic 47–130; TEMP 97–98; O2SAT 94–100
[2024-01-31 04:53] LABS: BASOPHILS % (AUTO) 0.1 % (0.0-2.0); EOSINOPHILS % (AUTO) 0.1 % (0.0-6.0); HEMATOCRIT 35 % (39-51); HEMOGLOBIN 11.5 g/dL (13.5-17.5); LYMPHOCYTES # (AUTO) 0.8 K/uL (0.8-4.8); LYMPHOCYTES % (AUTO) 3.5 % (20.0-44.0); MEAN CORPUSCULAR HEMOGLOBIN 28 PG (26.0-33.0); MEAN CORPUSCULAR HGB CONC 33 g/dl (31.0-36.0); MEAN CORPUSCULAR VOLUME 85 fL (80-96); MONOCYTES # (AUTO) 0.6 K/uL (0.1-1.30); MONOCYTES % (AUTO) 2.5 % (2.0-12.0); NEUTROPHILS # (AUTO) 21.7 K/uL (1.8-8.9); NEUTROPHILS % (AUTO) 93.8 % (43.0-81.0); PLATELET COUNT (AUTO) 256 K/uL (150-450); RED BLOOD CELL COUNT(AUTO) 4.16 MIL/uL (4.5-6.0); RED CELL DISTRIBUTION WIDTH 18.1 % (11.5-15.0); WHITE BLOOD COUNT (AUTO) 23.1 K/uL (4.3-11.0)
[2024-01-31 05:02] LABS: CARBON DIOXIDE 21 mmol/L (21-32); CHLORIDE 110 mmol/L (98-107); CREATININE 3.4 mg/dL (0.6-1.3); GLUCOSE 179 mg/dL (74-106); POTASSIUM 3.2 mmol/L (3.5-5.1); SODIUM SERUM 150 mmol/L (136-145)
[2024-01-31 05:03] LABS: UREA NITROGEN, BLOOD 99 mg/dL (7-18)
[2024-01-31 05:08] LABS: ALANINE AMINOTRANSFERASE 102 U/L (12-78); ALKALINE PHOSPHATASE 94 U/L (46-116); ASPARTATE AMINOTRANSFERASE 40 U/L (15-37); BILIRUBIN,TOTAL 0.5 mg/dL (0.2-1.0); TOTAL PROTEIN, SERUM 6.2 g/dL (6.4-8.2)
[2024-01-31 05:27] LABS: ALBUMIN 0.8 g/dL (3.4-5.0)
[2024-01-31] MEDS: PANTOPRAZOLE 40 MG/PACK PACK NG SCH (10:00)
[2024-01-31] MEDS ORDERED: VASOPRESSIN INJ 40 UNIT in IV NS 0.9% 38 ML IV PRN (11:30)
[2024-01-31 11:43] LABS: HEMOGLOBIN 11.7 g/dL (13.5-17.5)
[2024-01-31] MEDS: VASOPRESSIN INJ 40 UNIT in IV NS 0.9% 38 ML IV PRN (11:53)
[2024-02-01] VITALS (93 sets, daily range): BP systolic 99–145; BP diastolic 42–98; TEMP 97–98.5; O2SAT 94–100
[2024-02-01 05:27] LABS: BASOPHILS % (AUTO) 0.1 % (0.0-2.0); HEMATOCRIT 34 % (39-51); HEMOGLOBIN 10.9 g/dL (13.5-17.5); LYMPHOCYTES # (AUTO) 0.8 K/uL (0.8-4.8); LYMPHOCYTES % (AUTO) 4.7 % (20.0-44.0); MEAN CORPUSCULAR HEMOGLOBIN 27 PG (26.0-33.0); MEAN CORPUSCULAR HGB CONC 32 g/dl (31.0-36.0); MEAN CORPUSCULAR VOLUME 85 fL (80-96); MONOCYTES # (AUTO) 0.5 K/uL (0.1-1.30); MONOCYTES % (AUTO) 2.9 % (2.0-12.0); NEUTROPHILS # (AUTO) 15.2 K/uL (1.8-8.9); NEUTROPHILS % (AUTO) 92.3 % (43.0-81.0); PLATELET COUNT (AUTO) 216 K/uL (150-450); RED BLOOD CELL COUNT(AUTO) 3.99 MIL/uL (4.5-6.0); RED CELL DISTRIBUTION WIDTH 18.7 % (11.5-15.0); WHITE BLOOD COUNT (AUTO) 16.4 K/uL (4.3-11.0)
[2024-02-01 05:46] LABS: ALANINE AMINOTRANSFERASE 74 U/L (12-78); ALKALINE PHOSPHATASE 96 U/L (46-116); ASPARTATE AMINOTRANSFERASE 26 U/L (15-37); BILIRUBIN,TOTAL 0.5 mg/dL (0.2-1.0); CALCIUM, SERUM 7.2 mg/dL (8.5-10.1); CARBON DIOXIDE 21 mmol/L (21-32); CREATININE 3.3 mg/dL (0.6-1.3); GLUCOSE 184 mg/dL (74-106); TOTAL PROTEIN, SERUM 6.3 g/dL (6.4-8.2)
[2024-02-01 05:59] LABS: CHLORIDE 109 mmol/L (98-107); SODIUM SERUM 146 mmol/L (136-145)
[2024-02-01 06:05] LABS: UREA NITROGEN, BLOOD 95 mg/dL (7-18)
[2024-02-01 06:06] LABS: ALBUMIN 0.9 g/dL (3.4-5.0); POTASSIUM 2.6 mmol/L (3.5-5.1)
[2024-02-01] MEDS: POTASSIUM CHLORIDE 20 MEQ POWDER PACKET GT SCH (08:31)
[2024-02-01 19:17] LABS: HEMOGLOBIN 10.7 g/dL (13.5-17.5)
[2024-02-01] MEDS ORDERED: BISACODYL SUPP (10 MG) 10 MG/SUPP.RECT SUPP.RECT RC PRN (21:00)
[2024-02-01] MEDS: BISACODYL SUPP (10 MG) 10 MG/SUPP.RECT SUPP.RECT RC ONE (21:10)
[2024-02-02] VITALS (38 sets, daily range): BP systolic 90–161; BP diastolic 54–136; TEMP 96.3–96.9; O2SAT 94–100
[2024-02-02 05:00] LABS: HEMOGLOBIN 9.3 g/dL (13.5-17.5)
[2024-02-02 05:24] LABS: ALANINE AMINOTRANSFERASE 53 U/L (12-78); ALKALINE PHOSPHATASE 75 U/L (46-116); ASPARTATE AMINOTRANSFERASE 20 U/L (15-37); BILIRUBIN,TOTAL 0.5 mg/dL (0.2-1.0); CHLORIDE 110 mmol/L (98-107); CREATININE 2.7 mg/dL (0.6-1.3); GLUCOSE 180 mg/dL (74-106); TOTAL PROTEIN, SERUM 5.5 g/dL (6.4-8.2)
[2024-02-02 05:36] LABS: CARBON DIOXIDE 20 mmol/L (21-32)
[2024-02-02 05:44] LABS: SODIUM SERUM 147 mmol/L (136-145)
[2024-02-02 05:52] LABS: ALBUMIN 0.8 g/dL (3.4-5.0); POTASSIUM 2.3 mmol/L (3.5-5.1); UREA NITROGEN, BLOOD 91 mg/dL (7-18)
[2024-02-02] MEDS ORDERED: IV 1/2NS 1000 ML 1,000 ML IV PRN (07:38)
[2024-02-02] MEDS: POTASSIUM CL. PREMIX PERIPHER. 50 ML IV SCH (07:38)
[2024-02-02] MEDS: AMIODARONE HCL 200 MG TABLET GT SCH (09:15)
[2024-02-02] MEDS: ALBUMIN 25% 25 GM in PREMIX 1 EA IV SCH (12:12)
[2024-02-02] MEDS ORDERED: VANCOMYCIN 750 MG in IV D5W 250 ML IV SCH (14:00)
[2024-02-02] MEDS ORDERED: PIPERACILLIN /TAZOBACTAM 3.375 G in IV D5W 100 ML IV SCH (21:00)
[2024-02-03] MEDS ORDERED: VANCOMYCIN 750 MG in IV D5W 250 ML IV SCH (14:00)
== END 2024-02-02 14:09 | DRG 870 ==
LOC: ER 11:28 → TELE1 19:28 → TELE-TD 20:00 → TELE1 01-22 15:25 → ICU 01-27 02:42
PROVIDERS: ADMIT Internal Medicine; ATTEND Internal Medicine
PROC: 5A1955Z Respiratory Ventilation, Greater than 96 Consecutive Hours (ICD-10-PCS; principal; 2024-01-16)
PROC: 0BH17EZ Insertion of Endotracheal Airway into Trachea, Via Natural or Artificial Opening (ICD-10-PCS; 2024-01-16)
PROC: 30233N1 Transfusion of Nonautologous Red Blood Cells into Peripheral Vein, Percutaneous Approach (ICD-10-PCS; 2024-01-17)
PROC: 02HV33Z Insertion of Infusion Device into Superior Vena Cava, Percutaneous Approach (ICD-10-PCS; 2024-01-27)
PROC: B548ZZA Ultrasonography of Superior Vena Cava, Guidance (ICD-10-PCS; 2024-01-27)
DX: A41.9 Sepsis, unspecified organism (principal); E43 Unspecified severe protein-calorie malnutrition; J96.21 Acute and chronic respiratory failure with hypoxia; G93.41 Metabolic encephalopathy; J15.69 Pneumonia due to other Gram-negative bacteria; R65.21 Severe sepsis with septic shock; R57.1 Hypovolemic shock; R53.2 Functional quadriplegia; I13.0 Hypertensive heart and chronic kidney disease with heart failure and stage 1 through stage 4 chronic kidney disease, or unspecified chronic kidney disease; N17.9 Acute kidney failure, unspecified; I48.92 Unspecified atrial flutter; Z99.11 Dependence on respirator [ventilator] status; J44.0 Chronic obstructive pulmonary disease with (acute) lower respiratory infection; D68.59 Other primary thrombophilia; E87.20 Acidosis, unspecified; E87.0 Hyperosmolality and hypernatremia; K62.5 Hemorrhage of anus and rectum; Z66 Do not resuscitate; N18.9 Chronic kidney disease, unspecified; I48.0 Paroxysmal atrial fibrillation; Z86.73 Personal history of transient ischemic attack (TIA), and cerebral infarction without residual deficits; Z93.0 Tracheostomy status; Z93.1 Gastrostomy status; R13.10 Dysphagia, unspecified; G40.909 Epilepsy, unspecified, not intractable, without status epilepticus; I50.9 Heart failure, unspecified; K21.9 Gastro-esophageal reflux disease without esophagitis; L97.519 Non-pressure chronic ulcer of other part of right foot with unspecified severity; Z86.74 Personal history of sudden cardiac arrest; N40.0 Benign prostatic hyperplasia without lower urinary tract symptoms; F41.9 Anxiety disorder, unspecified; F32.A Depression, unspecified; F29 Unspecified psychosis not due to a substance or known physiological condition; Z79.01 Long term (current) use of anticoagulants; Z79.51 Long term (current) use of inhaled steroids; Z79.899 Other long term (current) drug therapy; K57.30 Diverticulosis of large intestine without perforation or abscess without bleeding; L29.9 Pruritus, unspecified; K59.00 Constipation, unspecified; K29.70 Gastritis, unspecified, without bleeding; M24.561 Contracture, right knee; K25.9 Gastric ulcer, unspecified as acute or chronic, without hemorrhage or perforation; I25.2 Old myocardial infarction; Z51.5 Encounter for palliative care; E78.5 Hyperlipidemia, unspecified; E86.0 Dehydration; E11.22 Type 2 diabetes mellitus with diabetic chronic kidney disease; D64.9 Anemia, unspecified; E11.51 Type 2 diabetes mellitus with diabetic peripheral angiopathy without gangrene; E11.621 Type 2 diabetes mellitus with foot ulcer; E88.09 Other disorders of plasma-protein metabolism, not elsewhere classified; F03.90 Unspecified dementia, unspecified severity, without behavioral disturbance, psychotic disturbance, mood disturbance, and anxiety; Y95 Nosocomial condition; Z79.4 Long term (current) use of insulin; E87.5 Hyperkalemia; Z74.09 Other reduced mobility; L85.3 Xerosis cutis; L89.156 Pressure-induced deep tissue damage of sacral region; L89.896 Pressure-induced deep tissue damage of other site; L89.626 Pressure-induced deep tissue damage of left heel; L89.616 Pressure-induced deep tissue damage of right heel
CPT/HCPCS: 31720; 36415; 36569; 36600; 71045-TC; 74018; 76770-TC; 80048-TC; 80053-TC; 80076-TC; 80202-TC; 81001; 82272-TC; 82550-TC; 82570-TC; 82607-TC; 82728-TC; 82803-TC; 82962-TC; 83540-TC; 83605-TC; 83735-TC; 83880; 83970; 84100-TC; 84155; 84165; 84300-TC; 84484-TC; 85025-TC; 85027-TC; 85045-TC; 85730-TC; 86850-TC; 87040-TC; 87081-TC; 88305-TC; 88313-TC; 88342; 94002-TC; 94003-TC; 94760-TC; 94762-TC; 94799-TC; 99082-TC; A4216; A4223; A4623; A6403; A7526; C9113; G0378; J0282; J1160; J1720; J1940; J2060; J2270; J2354; J2405; J2543; J2704; J2765; J3370; J3371; J3480; J3490; J7030; J7040; J7050; J7060; J7070; P9016; P9047

== ENCOUNTER 2024-02-02 14:24 | Inpatient (IN) | payer OTHER ==
[~2024-02-02 14:24] MED LIST changes: -ACET-2605 GT; +ACET-868 GT; -ALPR-323 GT; +AMIN30LI66 GT; -AMOX1TAB16 PO; -APIX2.5T GT; +APIX5TAB GT; -BISA10SU11 RC; -CALC500T53 GT; -CICLOPIROX OLAMINE TP; +COLL30OI TP; -DILT30TA14 GT; +DIVA125C5 GT; -DOCU100T2 GT; -FERR325T24 GT; +GABA-532 GT; -HYDR-4303 GT; -MAG30ORA GT; -MAGN400O6 GT; -MIDO5TAB4 GT; +MULT-213 GT; -NA P133E RC; -NUT.237L31 GT; +OLAN15TA3 GT; -OLAN5TAB3 GT; -ONDA4TAB5 GT; -PANT40SU2 GT; +SERT100T GT; -SIME80TA15 GT; +ZINC220C6 GT
[2024-02-02] MEDS ORDERED: KEY,NONCONTROL,TO KEEP IN PYXI 1 EA MC ONE (15:49)
[2024-02-02] MEDS: LORAZEPAM INJ 2 MG/ML VIAL IV PRN (16:11)
[2024-02-03] MEDS ORDERED: KEY,NONCONTROL,TO KEEP IN PYXI 1 EA MC ONE (02:14)
== END 2024-02-03 01:45 | DRG 871 ==
LOC: ICU 14:24 → HOSPICE1 15:03
PROVIDERS: ADMIT Internal Medicine; ATTEND Internal Medicine
DX: A41.9 Sepsis, unspecified organism (principal); E43 Unspecified severe protein-calorie malnutrition; J18.9 Pneumonia, unspecified organism; J96.21 Acute and chronic respiratory failure with hypoxia; R53.2 Functional quadriplegia; G93.41 Metabolic encephalopathy; R40.3 Persistent vegetative state; E87.1 Hypo-osmolality and hyponatremia; D68.59 Other primary thrombophilia; K62.5 Hemorrhage of anus and rectum; Z51.5 Encounter for palliative care; Z66 Do not resuscitate; I12.9 Hypertensive chronic kidney disease with stage 1 through stage 4 chronic kidney disease, or unspecified chronic kidney disease; N18.9 Chronic kidney disease, unspecified; D64.9 Anemia, unspecified; R13.10 Dysphagia, unspecified; K21.9 Gastro-esophageal reflux disease without esophagitis; K29.70 Gastritis, unspecified, without bleeding; M24.561 Contracture, right knee; Y95 Nosocomial condition; Z86.73 Personal history of transient ischemic attack (TIA), and cerebral infarction without residual deficits; N40.0 Benign prostatic hyperplasia without lower urinary tract symptoms; L89.626 Pressure-induced deep tissue damage of left heel; L89.616 Pressure-induced deep tissue damage of right heel; L89.896 Pressure-induced deep tissue damage of other site; Z79.01 Long term (current) use of anticoagulants; Z79.51 Long term (current) use of inhaled steroids; Z79.899 Other long term (current) drug therapy; E87.5 Hyperkalemia; E86.0 Dehydration; Z93.1 Gastrostomy status; I73.9 Peripheral vascular disease, unspecified; E78.5 Hyperlipidemia, unspecified; I48.0 Paroxysmal atrial fibrillation; F41.9 Anxiety disorder, unspecified; Z74.09 Other reduced mobility; R31.9 Hematuria, unspecified
CPT/HCPCS: 31720; 94799-TC; 99082-TC; G0378; J2060; J2274; J7060